=== PATIENT | male | born 1950 | race Caucasian/White ===

== ENCOUNTER → 2016-11-21 | Outpatient (CLI) | payer MEDICARE, OTHER ==
[~2016-11-21] MED LIST: AMOXICILLIN 50500 MG PO; ASPI325T6 PO; ASPIRIN 32325 MG/TAB PO; ASPIRIN 81M81 MG/TA2 PO; ASPIRIN E.C. 8181 MG PO; ATENOLOL50 MG PO; BRILINTA90 MG PO; CELEBREX 200MG200 MG PO; COUMADIN4 MG PO; DILTIAZEM PO; FLOMAX 0.40.4 MG/CAP PO; K-TAB20 PO; LASIX 40MG TABL40 MG PO; LIPITOR 80MG80 MG PO; LISINOPRIL10 MG PO; LORTAB 5/500 501 TAB PO; MAG-OX 400400 MG/TAB PO; NASONEX SPRAY17 GM NS; NEURONTIN300 MG/CAP PO; NORCO 325 MG-51 TAB PO; PERCOCET 325 MG1 TA2 PO; PERCOCET 325 MG1 TAB PO; PREDNISONE20 MG PO; PRILOSEC 20MG20 MG PO; PROAIR HFA0.09 MG/AC IH; PROLIA60 MG/ML SQ; SENOKOT S 50 MG1 TAB PO; TENORMIN100 MG PO; TIAZAC300 MG PO; TOPROL XL 25MG25 MG PO; TOPROL XL 50MG50 MG PO; ULTRAM 50MG TAB50 MG PO; VENTOLIN0.09 MG IH; ZANAFLEX2 MG PO; ZITHROMAX Z PA250 MG PO
== END ==
LOC: MHCPAIN 11:00
DX: G89.29 Other chronic pain (principal); M54.16 Radiculopathy, lumbar region; M48.06 Spinal stenosis, lumbar region; M47.817 Spondylosis without myelopathy or radiculopathy, lumbosacral region
CPT/HCPCS: G0463

== ENCOUNTER → 2016-11-29 | Outpatient (CLI) | payer MEDICARE, OTHER | LOC: MHCPAIN 09:02 | DX: M48.06 Spinal stenosis, lumbar region (principal); M47.817 Spondylosis without myelopathy or radiculopathy, lumbosacral region | CPT/HCPCS: G0463; J1100; Q9967 ==

== ENCOUNTER → 2016-12-28 | Outpatient (CLI) | payer MEDICARE, OTHER | LOC: MHCPAIN 11:02 | DX: G89.29 Other chronic pain (principal); M54.16 Radiculopathy, lumbar region; M47.817 Spondylosis without myelopathy or radiculopathy, lumbosacral region | CPT/HCPCS: G0463 ==

== ENCOUNTER → 2017-01-23 | Outpatient (CLI) | payer MEDICARE, OTHER | LOC: MHCPAIN 11:31 | DX: G89.29 Other chronic pain (principal); M47.817 Spondylosis without myelopathy or radiculopathy, lumbosacral region; M48.06 Spinal stenosis, lumbar region; F17.210 Nicotine dependence, cigarettes, uncomplicated | CPT/HCPCS: G0463 ==

== ENCOUNTER → 2017-02-27 | Outpatient (CLI) | payer MEDICARE, OTHER | LOC: MHCPAIN 11:24 | DX: G89.29 Other chronic pain (principal); M47.27 Other spondylosis with radiculopathy, lumbosacral region; M48.06 Spinal stenosis, lumbar region | CPT/HCPCS: G0463 ==

== ENCOUNTER 2017-03-04 13:12 | Day surgery (SDC) | payer MEDICARE, OTHER ==
[~2017-03-04] VITALS: Ht 172.7 cm; Wt 86.4 kg
[~2017-03-04 13:12] MED LIST changes: -ASPI325T6 PO; -ASPIRIN E.C. 8181 MG PO; -BRILINTA90 MG PO; -K-TAB20 PO; -LASIX 40MG TABL40 MG PO; -LIPITOR 80MG80 MG PO; -MAG-OX 400400 MG/TAB PO; -NEURONTIN300 MG/CAP PO; -PERCOCET 325 MG1 TAB PO; -PROAIR HFA0.09 MG/AC IH; -PROLIA60 MG/ML SQ; -ZANAFLEX2 MG PO
[2017-03-04] MEDS ORDERED: TENORMIN100 MG PO (13:29)
[2017-03-04] MEDS ORDERED: ASPI325T6 PO (13:30)
[2017-03-04 14:08] VITALS: BP 155/84; PULSE 72; TEMP 98
[2017-03-04 15:19] VITALS: BP 146/83; PULSE 79
[2017-03-04 15:34] VITALS: BP 148/95; PULSE 82
[2017-03-04 15:49] VITALS: BP 155/100; PULSE 84
[2017-03-04 16:04] VITALS: BP 151/82; PULSE 72
== END 2017-03-04 16:15 | disposition home or self-care (01) ==
LOC: SDCO 13:12
DX: K22.70 Barrett's esophagus without dysplasia (principal); K22.2 Esophageal obstruction; K44.9 Diaphragmatic hernia without obstruction or gangrene; R13.12 Dysphagia, oropharyngeal phase; K21.9 Gastro-esophageal reflux disease without esophagitis; I48.91 Unspecified atrial fibrillation; I10 Essential (primary) hypertension; Z79.899 Other long term (current) drug therapy; F17.200 Nicotine dependence, unspecified, uncomplicated
CPT/HCPCS: C1726; J2250; J3010; J7030

== ENCOUNTER → 2017-03-07 | Outpatient (CLI) | payer MEDICARE, OTHER ==
[~2017-03-07] MED LIST changes: +ASPI325T6 PO; +ASPIRIN E.C. 8181 MG PO; +BRILINTA90 MG PO; +K-TAB20 PO; +LASIX 40MG TABL40 MG PO; +LIPITOR 80MG80 MG PO; +MAG-OX 400400 MG/TAB PO; +NEURONTIN300 MG/CAP PO; +PERCOCET 325 MG1 TAB PO; +PROAIR HFA0.09 MG/AC IH; +PROLIA60 MG/ML SQ; +ZANAFLEX2 MG PO
== END ==
LOC: MHCPAIN 13:40
DX: M47.816 Spondylosis without myelopathy or radiculopathy, lumbar region (principal)
CPT/HCPCS: J1040; Q9967

== ENCOUNTER 2017-03-08 21:05 | Emergency (ER) | payer MEDICARE, OTHER ==
[~2017-03-08] VITALS: Ht 172.7 cm; Wt 86.4 kg
[2017-03-08 21:05] VITALS: TEMP 97
[~2017-03-08 21:05] MED LIST changes: -ASPIRIN E.C. 8181 MG PO; -BRILINTA90 MG PO; -K-TAB20 PO; -LASIX 40MG TABL40 MG PO; -LIPITOR 80MG80 MG PO; -MAG-OX 400400 MG/TAB PO; -NEURONTIN300 MG/CAP PO; -PERCOCET 325 MG1 TAB PO; -PROAIR HFA0.09 MG/AC IH; -PROLIA60 MG/ML SQ; -ZANAFLEX2 MG PO
[2017-03-08 21:29] LABS: BASO % 0.3 % (0.0-2.0); EOS # 0.1 (0.0-0.7); EOS % 0.5 % (0-4.0); GRAN # 8.3 (1.4-6.5); GRAN % 74.6 % (42.2-75.2); LYMPH # 1.9 (1.2-3.4); LYMPH % 16.9 % (20.0-51.0); MEAN CELL VOLUME 73 fl (80.0-100.0); MEAN CORPUSCULAR HGB CONC 30 g/dl (33.0-37.0); MEAN PLATELET VOLUME 9.9 fl (7.4-10.4); MONO # 0.8 (0.1-0.6); MONO % 7.3 % (1.7-9.3); PLATELET COUNT 453 K/mm3 (130-400); RED BLOOD COUNT 3.71 M/mm3 (4.20-5.60); WHITE BLOOD COUNT 11.1 K/mm3 (4.8-10.8)
[2017-03-08 21:30] LABS: HEMATOCRIT 27.2 % (42.0-52.0); HEMOGLOBIN 8.2 g/dl (13.5-18.0); MEAN CORPUSCULAR HEMOGLOBIN 22 pg (27.0-31.0)
[2017-03-08 21:43] LABS: ANION GAP 19 mmol/L (7-16); BLOOD UREA NITROGEN 10 mg/dL (9-20); CALCIUM 9.2 mg/dL (8.4-10.2); CARBON DIOXIDE 17 mmol/L (22-30); CHLORIDE 91 mmol/L (98-107); CREATININE, serum 0.87 mg/dL (0.66-1.25); GLUCOSE 85 mg/dL (74-106); POTASSIUM 4.5 mmol/L (3.4-5.0); SODIUM 127 mmol/L (137-145)
[2017-03-08 21:44] LABS: C-REACTIVE PROTEIN < 0.5 mg/dL (0.0-0.9)
[2017-03-08] MEDS ORDERED: PERCOCET 325 MG1 TAB PO (23:57)
[2017-03-09 00:37] VITALS: BP 109/63; PULSE 53
== END 2017-03-09 00:37 | disposition home or self-care (01) ==
LOC: COL.ER 21:05
PROVIDERS: Emergency Medicine
DX: M54.16 Radiculopathy, lumbar region (principal); M48.06 Spinal stenosis, lumbar region; I10 Essential (primary) hypertension; I48.91 Unspecified atrial fibrillation
CPT/HCPCS: J1170; J1885; J2360; J2765; J2930; J3010; J7030

== ENCOUNTER → 2017-03-13 | Outpatient (CLI) | payer MEDICARE, OTHER ==
[~2017-03-13] MED LIST changes: +ASPIRIN E.C. 8181 MG PO; +BRILINTA90 MG PO; +K-TAB20 PO; +LASIX 40MG TABL40 MG PO; +LIPITOR 80MG80 MG PO; +MAG-OX 400400 MG/TAB PO; +NEURONTIN300 MG/CAP PO; +PERCOCET 325 MG1 TAB PO; +PROAIR HFA0.09 MG/AC IH; +PROLIA60 MG/ML SQ; +ZANAFLEX2 MG PO
== END ==
LOC: MHCPAIN 12:24
DX: G89.29 Other chronic pain (principal); M47.21 Other spondylosis with radiculopathy, occipito-atlanto-axial region; M48.06 Spinal stenosis, lumbar region
CPT/HCPCS: G0463

== ENCOUNTER → 2017-03-22 | Outpatient (CLI) | payer MEDICARE, OTHER | LOC: MHCPAIN 12:34 | DX: G89.29 Other chronic pain (principal); M47.817 Spondylosis without myelopathy or radiculopathy, lumbosacral region; M48.06 Spinal stenosis, lumbar region; M54.16 Radiculopathy, lumbar region | CPT/HCPCS: G0463 ==

== ENCOUNTER 2017-04-06 21:02 | Emergency (ER) | payer MEDICARE, OTHER ==
[~2017-04-06] VITALS: Ht 172.7 cm; Wt 86.4 kg
[~2017-04-06 21:02] MED LIST changes: -ASPIRIN E.C. 8181 MG PO; -BRILINTA90 MG PO; -K-TAB20 PO; -LASIX 40MG TABL40 MG PO; -LIPITOR 80MG80 MG PO; -MAG-OX 400400 MG/TAB PO; -NEURONTIN300 MG/CAP PO; -PROAIR HFA0.09 MG/AC IH; -PROLIA60 MG/ML SQ; -ZANAFLEX2 MG PO
[2017-04-06 21:07] VITALS: TEMP 98.3
[2017-04-06 22:28] LABS: BASO % 0.5 % (0.0-2.0); EOS # 0.3 (0.0-0.7); EOS % 4.2 % (0-4.0); GRAN # 4.6 (1.4-6.5); GRAN % 60.8 % (42.2-75.2); LYMPH % 25.9 % (20.0-51.0); MEAN CELL VOLUME 76 fl (80.0-100.0); MEAN CORPUSCULAR HGB CONC 30 g/dl (33.0-37.0); MEAN PLATELET VOLUME 9.5 fl (7.4-10.4); MONO # 0.6 (0.1-0.6); MONO % 8.2 % (1.7-9.3); PLATELET COUNT 397 K/mm3 (130-400); RED BLOOD COUNT 3.56 M/mm3 (4.20-5.60); REDCELL DISTRIBUTION WIDTH-CV 22.8 % (11.5-14.5); WHITE BLOOD COUNT 7.5 K/mm3 (4.8-10.8)
[2017-04-06 22:30] LABS: HEMATOCRIT 27.2 % (42.0-52.0); HEMOGLOBIN 8.2 g/dl (13.5-18.0); MEAN CORPUSCULAR HEMOGLOBIN 23 pg (27.0-31.0)
[2017-04-06 22:38] LABS: ADJUSTED CALCIUM 8.4 mg/dL (8.4-10.2); ALBUMIN 3.7 gm/dL (3.5-5.0); BILIRUBIN,TOTAL 0.5 mg/dL (0.0-1.0); C-REACTIVE PROTEIN 1.3 mg/dL (0.0-0.9); CALCIUM 8.2 mg/dL (8.4-10.2); CREATININE, serum 1.06 mg/dL (0.66-1.25); POTASSIUM 4.7 mmol/L (3.4-5.0); TOTAL PROTEIN 6.6 gm/dL (6.4-8.2)
[2017-04-06] MEDS ORDERED: PERCOCET 325 MG1 TAB PO (23:12)
[2017-04-06 23:25] VITALS: BP 101/63; PULSE 95
== END 2017-04-06 23:26 | disposition home or self-care (01) ==
LOC: COL.ER 21:02
PROVIDERS: Emergency Medicine
DX: M48.06 Spinal stenosis, lumbar region (principal); M54.16 Radiculopathy, lumbar region; I10 Essential (primary) hypertension; J45.909 Unspecified asthma, uncomplicated; M19.90 Unspecified osteoarthritis, unspecified site; F17.290 Nicotine dependence, other tobacco product, uncomplicated; Z79.82 Long term (current) use of aspirin; Z96.653 Presence of artificial knee joint, bilateral
CPT/HCPCS: J2765; J2930; J3010; J7030

== ENCOUNTER → 2017-04-17 | Outpatient (CLI) | payer MEDICARE, OTHER ==
[~2017-04-17] MED LIST changes: +ASPIRIN E.C. 8181 MG PO; +BRILINTA90 MG PO; +K-TAB20 PO; +LASIX 40MG TABL40 MG PO; +LIPITOR 80MG80 MG PO; +MAG-OX 400400 MG/TAB PO; +NEURONTIN300 MG/CAP PO; +PROAIR HFA0.09 MG/AC IH; +PROLIA60 MG/ML SQ; +ZANAFLEX2 MG PO
== END ==
LOC: MHCPAIN 11:25
DX: G89.29 Other chronic pain (principal); M47.817 Spondylosis without myelopathy or radiculopathy, lumbosacral region; M54.16 Radiculopathy, lumbar region; M48.06 Spinal stenosis, lumbar region
CPT/HCPCS: G0463

== ENCOUNTER 2017-04-24 13:00 | Day surgery (SDC) | payer MEDICARE, OTHER ==
[~2017-04-24] VITALS: Ht 172.7 cm; Wt 86.4 kg
[~2017-04-24 13:00] MED LIST changes: -ASPIRIN E.C. 8181 MG PO; -BRILINTA90 MG PO; -K-TAB20 PO; -LASIX 40MG TABL40 MG PO; -LIPITOR 80MG80 MG PO; -MAG-OX 400400 MG/TAB PO; -NEURONTIN300 MG/CAP PO; -PROAIR HFA0.09 MG/AC IH; -PROLIA60 MG/ML SQ; -ZANAFLEX2 MG PO
[2017-04-24 13:30] VITALS: BP 153/93; PULSE 85; TEMP 98.1
[2017-04-24] MEDS ORDERED: ASPIRIN 81M81 MG/TA2 PO (14:00)
[2017-04-24] MEDS ORDERED: NEURONTIN300 MG/CAP PO (14:02)
[2017-04-24] MEDS ORDERED: ZANAFLEX2 MG PO (14:03)
[2017-04-24 14:40] VITALS: BP 145/95; PULSE 92; TEMP 98.9
[2017-04-24 14:55] VITALS: BP 159/107; PULSE 77
[2017-04-24 15:10] VITALS: BP 174/102; PULSE 79
[2017-04-24 15:25] VITALS: BP 145/97; PULSE 79
[2017-04-24 16:07] VITALS: BP 124/82; PULSE 79
== END 2017-04-24 16:00 | disposition home or self-care (01) ==
LOC: SDCO 13:00
DX: D50.9 Iron deficiency anemia, unspecified (principal); K92.1 Melena; K64.8 Other hemorrhoids; K57.30 Diverticulosis of large intestine without perforation or abscess without bleeding; K21.9 Gastro-esophageal reflux disease without esophagitis; I10 Essential (primary) hypertension; I48.91 Unspecified atrial fibrillation; J44.9 Chronic obstructive pulmonary disease, unspecified; J45.909 Unspecified asthma, uncomplicated; G47.33 Obstructive sleep apnea (adult) (pediatric); M19.90 Unspecified osteoarthritis, unspecified site; F17.290 Nicotine dependence, other tobacco product, uncomplicated; Z96.611 Presence of right artificial shoulder joint; Z96.651 Presence of right artificial knee joint
CPT/HCPCS: J2704; J7030

== ENCOUNTER 2017-04-28 23:38 | Emergency (ER) | payer MEDICARE, OTHER ==
[~2017-04-28] VITALS: Ht 175.3 cm; Wt 86.4 kg
[2017-04-28 23:38] VITALS: TEMP 97
[~2017-04-28 23:38] MED LIST changes: +NEURONTIN300 MG/CAP PO; +ZANAFLEX2 MG PO
[2017-04-29] MEDS ORDERED: PREDNISONE20 MG PO (01:44)
[2017-04-29 02:07] VITALS: BP 148/58; PULSE 69
== END 2017-04-29 02:55 | disposition home or self-care (01) ==
LOC: COL.ER 23:38
DX: M54.16 Radiculopathy, lumbar region (principal); M48.00 Spinal stenosis, site unspecified; I48.91 Unspecified atrial fibrillation; D64.9 Anemia, unspecified; Z79.82 Long term (current) use of aspirin
CPT/HCPCS: J1170; J2060; J2405; J2930; J7030

== ENCOUNTER 2017-05-10 05:44 | Observation (INO) | payer MEDICARE, OTHER ==
[2017-05-10] VITALS (162 sets, daily range): BP systolic 115–164; BP diastolic 62–88; PULSE 50–98; TEMP 98–98.6; O2SAT 77–100
[~2017-05-10] VITALS: Ht 172.7 cm; Wt 86.4 kg
[2017-05-10] MEDS ORDERED: PROLIA60 MG/ML SQ (07:01)
[2017-05-10 07:48] LABS: MEAN CELL VOLUME 78 fl (80.0-100.0); MEAN CORPUSCULAR HGB CONC 31 g/dl (33.0-37.0); MEAN PLATELET VOLUME 9.5 fl (7.4-10.4); PLATELET COUNT 370 K/mm3 (130-400); RED BLOOD COUNT 4.06 M/mm3 (4.20-5.60); REDCELL DISTRIBUTION WIDTH-CV 23.5 % (11.5-14.5); WHITE BLOOD COUNT 6.9 K/mm3 (4.8-10.8)
[2017-05-10 07:55] LABS: HEMATOCRIT 31.5 % (42.0-52.0); HEMOGLOBIN 9.7 g/dl (13.5-18.0); MEAN CORPUSCULAR HEMOGLOBIN 24 pg (27.0-31.0)
[2017-05-10 07:57] LABS: CALCIUM 8.5 mg/dL (8.4-10.2); CREATININE, serum 0.7 mg/dL (0.66-1.25); POTASSIUM 4.7 mmol/L (3.4-5.0)
[2017-05-10 07:59] LABS: PROTHROMBIN TIME 10.6 SECONDS (9.7-12.8)
[2017-05-11 02:31] VITALS: BP 164/89; PULSE 52; TEMP 97.7
[2017-05-11 05:50] VITALS: BP 154/74; PULSE 66; TEMP 97.4
[2017-05-11 09:38] VITALS: BP 129/60; PULSE 77; TEMP 98.5
[2017-05-11] MEDS ORDERED: BRILINTA90 MG PO (11:45)
[2017-05-11] MEDS ORDERED: ASPIRIN E.C. 8181 MG PO (11:46)
[2017-05-11] MEDS ORDERED: LIPITOR 80MG80 MG PO (11:47)
== END 2017-05-11 12:00 | disposition home or self-care (01) ==
LOC: MEDICAL 05:44 → ICU 13:39 → SURG 18:53 → MEDICAL 20:17 → SURG 05-11 12:00
PROVIDERS: Internal Medicine Interventional Cardiology
DX: I25.10 Atherosclerotic heart disease of native coronary artery without angina pectoris (principal); I48.0 Paroxysmal atrial fibrillation; F17.290 Nicotine dependence, other tobacco product, uncomplicated; D50.9 Iron deficiency anemia, unspecified; K22.70 Barrett's esophagus without dysplasia; E87.1 Hypo-osmolality and hyponatremia; Z96.653 Presence of artificial knee joint, bilateral
CPT/HCPCS: C1725; C1760; C1769; C1876; C1887; C1894; C9600; J0583; J2250; J3010; Q9967

== ENCOUNTER → 2017-05-17 | Outpatient (CLI) | payer MEDICARE, OTHER ==
[~2017-05-17] MED LIST changes: +ASPIRIN E.C. 8181 MG PO; +BRILINTA90 MG PO; +K-TAB20 PO; +LASIX 40MG TABL40 MG PO; +LIPITOR 80MG80 MG PO; +MAG-OX 400400 MG/TAB PO; +PROAIR HFA0.09 MG/AC IH; +PROLIA60 MG/ML SQ
== END ==
LOC: MHCPAIN 12:36
DX: G89.29 Other chronic pain (principal); M47.817 Spondylosis without myelopathy or radiculopathy, lumbosacral region; M54.16 Radiculopathy, lumbar region; F17.210 Nicotine dependence, cigarettes, uncomplicated
CPT/HCPCS: G0463

== ENCOUNTER → 2017-05-22 | Outpatient (CLI) | payer MEDICARE, OTHER ==
[2017-05-22 22:50] LABS: MEAN CELL VOLUME 79 fl (80.0-100.0); MEAN CORPUSCULAR HGB CONC 32 g/dl (33.0-37.0); MEAN PLATELET VOLUME 10.2 fl (7.4-10.4); PLATELET COUNT 411 K/mm3 (130-400); RED BLOOD COUNT 4.24 M/mm3 (4.20-5.60); REDCELL DISTRIBUTION WIDTH-CV 24.6 % (11.5-14.5); WHITE BLOOD COUNT 6.3 K/mm3 (4.8-10.8)
[2017-05-22 22:52] LABS: HEMATOCRIT 33.5 % (42.0-52.0); HEMOGLOBIN 10.7 g/dl (13.5-18.0); MEAN CORPUSCULAR HEMOGLOBIN 25 pg (27.0-31.0)
[2017-05-22 23:01] LABS: CALCIUM 9.1 mg/dL (8.4-10.2); CREATININE, serum 0.87 mg/dL (0.66-1.25); POTASSIUM 4.1 mmol/L (3.4-5.0)
== END ==
LOC: COL.LAB 20:47
PROVIDERS: Internal Medicine Interventional Cardiology
DX: I74.5 Embolism and thrombosis of iliac artery (principal)

== ENCOUNTER 2017-06-06 05:08 | Inpatient (IN) | payer MEDICARE, OTHER ==
[~2017-06-06] VITALS: Ht 172.7 cm; Wt 85.4 kg
[~2017-06-06 05:08] MED LIST changes: -K-TAB20 PO; -LASIX 40MG TABL40 MG PO; -MAG-OX 400400 MG/TAB PO; -PROAIR HFA0.09 MG/AC IH
[2017-06-06 06:19] LABS: ADD PATHOLOGY DIFF REVIEW NO
[2017-06-06 06:22] LABS: MEAN CELL VOLUME 81 fl (80.0-100.0); MEAN CORPUSCULAR HGB CONC 33 g/dl (33.0-37.0); MEAN PLATELET VOLUME 9.2 fl (7.4-10.4); PLATELET COUNT 353 K/mm3 (130-400); RED BLOOD COUNT 3.85 M/mm3 (4.20-5.60); REDCELL DISTRIBUTION WIDTH-CV 24.6 % (11.5-14.5); WHITE BLOOD COUNT 13.7 K/mm3 (4.8-10.8)
[2017-06-06 06:23] LABS: HEMATOCRIT 31.1 % (42.0-52.0); HEMOGLOBIN 10.3 g/dl (13.5-18.0); MEAN CORPUSCULAR HEMOGLOBIN 27 pg (27.0-31.0)
[2017-06-06 06:38] LABS: ADJUSTED CALCIUM 8.3 mg/dL (8.4-10.2); ALBUMIN 3.4 gm/dL (3.5-5.0); BILIRUBIN,TOTAL 0.8 mg/dL (0.0-1.0); CALCIUM 7.8 mg/dL (8.4-10.2); CREATININE, serum 0.59 mg/dL (0.66-1.25); POTASSIUM 4.7 mmol/L (3.4-5.0); TOTAL PROTEIN 6.6 gm/dL (6.4-8.2)
[2017-06-06 07:15] LABS: C-REACTIVE PROTEIN 19.2 mg/dL (0.0-0.9)
[2017-06-06 07:50] LABS: BAND 7 % (0-10); HYPOCHROMIA 1+; NEUTROPHILS 86 % (42.0-75.2); PLATELET ESTIMATE NORMAL (NORMAL); TOTAL CELLS COUNTED 100
[2017-06-06 11:01] VITALS: PULSE 73; TEMP 98.1
[2017-06-06 16:00] VITALS: BP 123/77; PULSE 93; TEMP 97.9
[2017-06-06 20:49] VITALS: BP 127/74; PULSE 111; TEMP 97.9
[2017-06-07 00:20] VITALS: BP 135/90; PULSE 91; TEMP 98
[2017-06-07 04:04] VITALS: BP 141/89; PULSE 95; TEMP 98.6
[2017-06-07 06:35] LABS: ADD PATHOLOGY DIFF REVIEW NO; HEMATOCRIT 30.3 % (42.0-52.0); HEMOGLOBIN 9.9 g/dl (13.5-18.0); MEAN CELL VOLUME 82 fl (80.0-100.0); MEAN CORPUSCULAR HEMOGLOBIN 27 pg (27.0-31.0); MEAN CORPUSCULAR HGB CONC 33 g/dl (33.0-37.0); MEAN PLATELET VOLUME 9.4 fl (7.4-10.4); PLATELET COUNT 341 K/mm3 (130-400); RED BLOOD COUNT 3.68 M/mm3 (4.20-5.60); REDCELL DISTRIBUTION WIDTH-CV 24.9 % (11.5-14.5)
[2017-06-07 06:43] LABS: CALCIUM 7.5 mg/dL (8.4-10.2); CREATININE, serum 0.59 mg/dL (0.66-1.25); POTASSIUM 3.8 mmol/L (3.4-5.0)
[2017-06-07 07:22] LABS: BAND 10 % (0-10); NEUTROPHILS 67 % (42.0-75.2); PLATELET ESTIMATE NORMAL (NORMAL); TOTAL CELLS COUNTED 100
[2017-06-07 07:23] LABS: HYPOCHROMIA 2+
[2017-06-07 07:29] LABS: ANISOCYTOSIS 3+
[2017-06-07 07:30] LABS: TARGET CELLS 2+
[2017-06-07 08:04] VITALS: BP 151/74; PULSE 108; TEMP 98.5
[2017-06-07 11:32] VITALS: BP 103/76; PULSE 67; TEMP 98.4
[2017-06-07 16:07] VITALS: BP 118/72; PULSE 61; TEMP 98.4
[2017-06-07 21:14] VITALS: BP 149/58; PULSE 78; TEMP 98.7
[2017-06-08 05:18] VITALS: BP 135/82; PULSE 103; PULSE 79; TEMP 98.1
[2017-06-08 06:56] LABS: CALCIUM 7.7 mg/dL (8.4-10.2); CREATININE, serum 0.62 mg/dL (0.66-1.25); POTASSIUM 3.9 mmol/L (3.4-5.0)
[2017-06-08 07:34] VITALS: BP 122/70; PULSE 72; TEMP 97.5
[2017-06-08 08:15] VITALS: BP 131/70; PULSE 103; TEMP 98.7
[2017-06-08] MEDS ORDERED: MAG-OX 400400 MG/TAB PO (10:06)
[2017-06-08] MEDS ORDERED: PROAIR HFA0.09 MG/AC IH (10:10)
[2017-06-08] MEDS ORDERED: LASIX 40MG TABL40 MG PO (10:10)
[2017-06-08] MEDS ORDERED: K-TAB20 PO (10:10)
== END 2017-06-08 11:25 | disposition home or self-care (01) | DRG 292 ==
LOC: COL.ER 05:08 → MEDICAL 08:49
PROVIDERS: Family Medicine; Physician Assistant
DX: I11.0 Hypertensive heart disease with heart failure (principal); E87.1 Hypo-osmolality and hyponatremia; J98.11 Atelectasis; I50.33 Acute on chronic diastolic (congestive) heart failure; I48.91 Unspecified atrial fibrillation; W18.30XA Fall on same level, unspecified, initial encounter; I25.10 Atherosclerotic heart disease of native coronary artery without angina pectoris; Z95.5 Presence of coronary angioplasty implant and graft; F17.290 Nicotine dependence, other tobacco product, uncomplicated; I73.9 Peripheral vascular disease, unspecified; Z95.820 Peripheral vascular angioplasty status with implants and grafts
CPT/HCPCS: 99223-AI; 99233-AI; 99239; A9284; G0378; G8978-GP; G8979-GP; J0456; J0692; J1170; J1650; J1940; J2270; J7050; Q9967

== ENCOUNTER → 2017-08-05 | Outpatient (CLI) | payer MEDICARE, OTHER ==
[~2017-08-05] MED LIST changes: +K-TAB20 PO; +LASIX 40MG TABL40 MG PO; +MAG-OX 400400 MG/TAB PO; +PROAIR HFA0.09 MG/AC IH
== END ==
LOC: MHCPAIN 09:54
DX: G89.29 Other chronic pain (principal); M47.27 Other spondylosis with radiculopathy, lumbosacral region; F17.200 Nicotine dependence, unspecified, uncomplicated; Z79.82 Long term (current) use of aspirin
CPT/HCPCS: G0463

== ENCOUNTER → 2017-10-24 | Outpatient (CLI) | payer MEDICARE, OTHER | LOC: COL.PUL 14:19 | DX: R06.02 Shortness of breath (principal); F17.290 Nicotine dependence, other tobacco product, uncomplicated ==

== ENCOUNTER → 2017-10-30 | Outpatient (CLI) | payer MEDICARE, OTHER | LOC: MHCPAIN 12:59 | DX: G89.29 Other chronic pain (principal); M47.27 Other spondylosis with radiculopathy, lumbosacral region; M53.3 Sacrococcygeal disorders, not elsewhere classified; M96.1 Postlaminectomy syndrome, not elsewhere classified; F17.200 Nicotine dependence, unspecified, uncomplicated | CPT/HCPCS: G0463 ==

== ENCOUNTER → 2017-11-08 | Outpatient (CLI) | payer MEDICARE, OTHER | LOC: COL.RAD 14:22 | DX: M48.07 Spinal stenosis, lumbosacral region (principal); M51.27 Other intervertebral disc displacement, lumbosacral region; M46.87 Other specified inflammatory spondylopathies, lumbosacral region; M47.816 Spondylosis without myelopathy or radiculopathy, lumbar region ==

== ENCOUNTER → 2018-01-08 | Outpatient (CLI) | payer MEDICARE, OTHER | LOC: MHCPAIN 12:30 | DX: G89.29 Other chronic pain (principal); M47.817 Spondylosis without myelopathy or radiculopathy, lumbosacral region; M54.16 Radiculopathy, lumbar region; M53.3 Sacrococcygeal disorders, not elsewhere classified; M48.061 Spinal stenosis, lumbar region without neurogenic claudication | CPT/HCPCS: G0463 ==

== ENCOUNTER → 2018-01-16 | Outpatient (CLI) | payer MEDICARE, OTHER | LOC: COL.RAD 14:46 | DX: M41.84 Other forms of scoliosis, thoracic region (principal); M41.86 Other forms of scoliosis, lumbar region; M47.816 Spondylosis without myelopathy or radiculopathy, lumbar region ==

== ENCOUNTER → 2018-04-02 | Outpatient (CLI) | payer MEDICARE, OTHER | LOC: MHCPAIN 12:52 | DX: G89.29 Other chronic pain (principal); M47.817 Spondylosis without myelopathy or radiculopathy, lumbosacral region; M54.16 Radiculopathy, lumbar region; M53.3 Sacrococcygeal disorders, not elsewhere classified; M96.1 Postlaminectomy syndrome, not elsewhere classified | CPT/HCPCS: G0463 ==

== ENCOUNTER → 2018-05-07 | Outpatient (CLI) | payer MEDICARE, OTHER | LOC: MHCPAIN 11:35 | DX: G89.29 Other chronic pain (principal); M47.817 Spondylosis without myelopathy or radiculopathy, lumbosacral region; M54.16 Radiculopathy, lumbar region; M53.3 Sacrococcygeal disorders, not elsewhere classified; M96.1 Postlaminectomy syndrome, not elsewhere classified | CPT/HCPCS: G0463 ==

== ENCOUNTER → 2018-05-28 | Outpatient (CLI) | payer MEDICARE, OTHER | LOC: MHCPAIN 12:46 | DX: G89.29 Other chronic pain (principal); M47.817 Spondylosis without myelopathy or radiculopathy, lumbosacral region; M54.16 Radiculopathy, lumbar region; M53.3 Sacrococcygeal disorders, not elsewhere classified; M96.1 Postlaminectomy syndrome, not elsewhere classified | CPT/HCPCS: G0463 ==

== ENCOUNTER → 2018-06-18 | Outpatient (CLI) | payer MEDICARE, OTHER | LOC: MHCPAIN 13:43 | DX: G89.29 Other chronic pain (principal); M47.817 Spondylosis without myelopathy or radiculopathy, lumbosacral region; M54.16 Radiculopathy, lumbar region; M53.3 Sacrococcygeal disorders, not elsewhere classified; M96.1 Postlaminectomy syndrome, not elsewhere classified | CPT/HCPCS: G0463 ==

== ENCOUNTER → 2018-08-18 | Outpatient (CLI) | payer MEDICARE, OTHER | LOC: MHCPAIN 11:19 | DX: G89.29 Other chronic pain (principal); M47.817 Spondylosis without myelopathy or radiculopathy, lumbosacral region; M54.16 Radiculopathy, lumbar region; M53.3 Sacrococcygeal disorders, not elsewhere classified; M96.1 Postlaminectomy syndrome, not elsewhere classified | CPT/HCPCS: G0463 ==

== ENCOUNTER → 2018-10-06 | Outpatient (CLI) | payer MEDICARE, OTHER | LOC: MHCPAIN 11:04 | DX: G89.29 Other chronic pain (principal); M47.817 Spondylosis without myelopathy or radiculopathy, lumbosacral region; M54.16 Radiculopathy, lumbar region; M53.3 Sacrococcygeal disorders, not elsewhere classified; M96.1 Postlaminectomy syndrome, not elsewhere classified | CPT/HCPCS: G0463 ==

== ENCOUNTER 2018-11-18 13:45 | Outpatient (RCR) | payer MEDICARE, OTHER | END 2018-11-24 | disposition home or self-care (01) | LOC: WSPT | DX: M54.16 Radiculopathy, lumbar region (principal); M47.817 Spondylosis without myelopathy or radiculopathy, lumbosacral region; M96.1 Postlaminectomy syndrome, not elsewhere classified; M53.3 Sacrococcygeal disorders, not elsewhere classified; G89.29 Other chronic pain; Z79.01 Long term (current) use of anticoagulants; Z79.82 Long term (current) use of aspirin; Z79.899 Other long term (current) drug therapy | CPT/HCPCS: G8978-GP; G8979-GP ==

== ENCOUNTER 2018-11-25 14:20 | Outpatient (RCR) | payer MEDICARE, OTHER | END 2019-02-03 10:38 | disposition home or self-care (01) | LOC: WSPT 14:20 | DX: M54.5 Low back pain (principal); G89.29 Other chronic pain ==

== ENCOUNTER → 2018-12-02 | Outpatient (CLI) | payer MEDICARE, OTHER | LOC: MHCPAIN 12:36 | DX: G89.29 Other chronic pain (principal); M47.817 Spondylosis without myelopathy or radiculopathy, lumbosacral region; M54.16 Radiculopathy, lumbar region; M53.3 Sacrococcygeal disorders, not elsewhere classified; M96.1 Postlaminectomy syndrome, not elsewhere classified | CPT/HCPCS: G0463 ==

== ENCOUNTER → 2019-01-20 | Outpatient (CLI) | payer MEDICARE, OTHER | LOC: MHCPAIN 12:28 | DX: G89.29 Other chronic pain (principal); M47.817 Spondylosis without myelopathy or radiculopathy, lumbosacral region; M54.16 Radiculopathy, lumbar region; M53.3 Sacrococcygeal disorders, not elsewhere classified; M96.1 Postlaminectomy syndrome, not elsewhere classified | CPT/HCPCS: G0463 ==

== ENCOUNTER → 2019-03-11 | Day surgery (SDC) | payer MEDICARE, OTHER ==
[~2019-03-11] VITALS: Ht 175.3 cm; Wt 86.4 kg
[~2019-03-11] MED LIST changes: +ELIQUIS 5MG PO; +MOBIC 7.5MG7.5 MG PO; +PERCOCET 325 MG1 TA3 PO
[2019-03-11 13:33] VITALS: BP 133/99; PULSE 86; TEMP 97.9
[2019-03-11 14:45] VITALS: BP 132/106; PULSE 90; TEMP 97.8
--- NOTE | 2019-03-11 14:45 | NUR ---
The patient arrived back to [facility] from the [facility] at this time. The patient appears alert and oriented at this time. The patient ambulated from the cart to the recliner in his room with the stand by assistance of two nurses and appeared to tolerate the activity well. Post procedure vital signs were started at this time. The patient requests to try some apple juice at this time. The patient's is at his bedside at this time. Call light is within reach. Will continue to monitor the patient.
[2019-03-11 15:00] VITALS: BP 122/90; PULSE 79
--- NOTE | 2019-03-11 15:00 | NUR ---
The patient appears to be tolerating the apple juice well. The patient's vital signs appear stable. The patient's remains at his bedside. Will continue to monitor the patient.
[2019-03-11 15:15] VITALS: BP 133/88; PULSE 79
--- NOTE | 2019-03-11 15:15 | NUR ---
Discharge instructions were reviewed with the patient and his at this time. They both verbalized understanding and have no questions for the nurse at this time. The patient's IV to his right forearm was removed and a pressure dressing was applied to the site. The nurse instructed the patient to get dressed and notify the staff when he is ready to be escorted ou.t
--- NOTE | 2019-03-11 15:30 | NUR ---
The patient was escorted out via wheelchair to a private vehicle by GISSELLE Bazan. The patient's belongings and discharge papwerwork were sent with him. The patient's was present to drive hime home.
== END ==
LOC: SDCO 13:00
DX: K22.70 Barrett's esophagus without dysplasia (principal); K22.2 Esophageal obstruction; K21.9 Gastro-esophageal reflux disease without esophagitis; I48.91 Unspecified atrial fibrillation; I10 Essential (primary) hypertension; K92.1 Melena; D64.9 Anemia, unspecified; M19.90 Unspecified osteoarthritis, unspecified site; F17.290 Nicotine dependence, other tobacco product, uncomplicated
CPT/HCPCS: C1726; J2250; J3010; J7030

== ENCOUNTER → 2019-03-18 | Outpatient (CLI) | payer MEDICARE, OTHER | LOC: MHCPAIN 15:12 | DX: G89.29 Other chronic pain (principal); M47.817 Spondylosis without myelopathy or radiculopathy, lumbosacral region; M54.16 Radiculopathy, lumbar region; M53.3 Sacrococcygeal disorders, not elsewhere classified; M96.1 Postlaminectomy syndrome, not elsewhere classified | CPT/HCPCS: G0463 ==

== ENCOUNTER → 2019-05-06 | Outpatient (CLI) | payer MEDICARE, OTHER ==
[~2019-05-06] MED LIST changes: +VITAMIN D31000 I1 PO; +VITAMINC1000TA
== END ==
LOC: MHCPAIN 12:12
DX: G89.29 Other chronic pain (principal); M47.817 Spondylosis without myelopathy or radiculopathy, lumbosacral region; M54.16 Radiculopathy, lumbar region; M53.3 Sacrococcygeal disorders, not elsewhere classified; M96.1 Postlaminectomy syndrome, not elsewhere classified
CPT/HCPCS: G0463

== ENCOUNTER 2019-05-09 00:02 | Emergency (ER) | payer MEDICARE, OTHER ==
[~2019-05-09] VITALS: Ht 172.7 cm; Wt 86.4 kg
[~2019-05-09 00:02] MED LIST changes: -VITAMIN D31000 I1 PO; -VITAMINC1000TA
[2019-05-09 00:05] VITALS: TEMP 98.2
[2019-05-09 00:32] LABS: BASO # 0.1 (0.0-0.2); BASO % 0.9 % (0.0-2.0); EOS # 0.1 (0.0-0.7); EOS % 1.4 % (0-4.0); GRAN # 4.7 (1.4-6.5); GRAN % 57.6 % (42.2-75.2); HEMATOCRIT 41.4 % (42.0-52.0); HEMOGLOBIN 14.4 g/dl (13.5-18.0); LYMPH # 2.3 (1.2-3.4); MEAN CELL VOLUME 99 fl (80.0-100.0); MEAN CORPUSCULAR HEMOGLOBIN 34 pg (27.0-31.0); MEAN CORPUSCULAR HGB CONC 35 g/dl (33.0-37.0); MEAN PLATELET VOLUME 9.4 fl (7.4-10.4); MONO # 0.9 (0.1-0.6); MONO % 11.6 % (1.7-9.3); PLATELET COUNT 305 K/mm3 (130-400); REDCELL DISTRIBUTION WIDTH-CV 13.5 % (11.5-14.5)
[2019-05-09 00:40] LABS: CALCIUM 8.4 mg/dL (8.4-10.2); CREATININE, serum 0.91 (0.66-1.25); POTASSIUM 4.1 mmol/L (3.4-5.0)
[2019-05-09 00:41] LABS: PROTHROMBIN TIME 11.6 SECONDS (9.7-12.8)
[2019-05-09] MEDS ORDERED: VITAMINC1000TA (01:26)
[2019-05-09] MEDS ORDERED: VITAMIN D31000 I1 PO (01:27)
[2019-05-09 02:47] VITALS: BP 123/82; PULSE 66
== END 2019-05-09 02:47 | disposition home or self-care (01) ==
LOC: COL.ER 00:02
PROVIDERS: Physician Assistant
DX: S00.93XA Contusion of unspecified part of head, initial encounter (principal); M54.9 Dorsalgia, unspecified; R91.1 Solitary pulmonary nodule; I48.91 Unspecified atrial fibrillation; F10.129 Alcohol abuse with intoxication, unspecified; Z79.01 Long term (current) use of anticoagulants; Z79.82 Long term (current) use of aspirin; Z95.5 Presence of coronary angioplasty implant and graft; Y90.8 Blood alcohol level of 240 mg/100 ml or more; F17.290 Nicotine dependence, other tobacco product, uncomplicated; W19.XXXA Unspecified fall, initial encounter; W22.8XXA Striking against or struck by other objects, initial encounter; Y92.009 Unspecified place in unspecified non-institutional (private) residence as the place of occurrence of the external cause
CPT/HCPCS: J2270; J2405; J7030

== ENCOUNTER 2019-07-10 15:17 | Outpatient (CLI) | payer MEDICARE, OTHER ==
[~2019-07-10] VITALS: Ht 172.7 cm; Wt 86.4 kg
[~2019-07-10 15:17] MED LIST changes: +VITAMIN D31000 I1 PO; +VITAMINC1000TA
[2019-07-10 15:58] VITALS: BP 116/66; PULSE 78; TEMP 97.5
--- NOTE | 2019-07-10 16:43 | NUR ---
Sat for 30 minutes post Reclast. transferred to private car by hermes
== END 2019-07-10 16:44 | disposition home or self-care (01) ==
LOC: EUO 15:17
DX: M81.0 Age-related osteoporosis without current pathological fracture (principal)
CPT/HCPCS: J3489

== ENCOUNTER → 2019-07-29 | Outpatient (CLI) | payer MEDICARE, OTHER | LOC: MHCPAIN 13:59 | DX: G89.29 Other chronic pain (principal); M47.817 Spondylosis without myelopathy or radiculopathy, lumbosacral region; M54.16 Radiculopathy, lumbar region; M53.3 Sacrococcygeal disorders, not elsewhere classified; M96.1 Postlaminectomy syndrome, not elsewhere classified | CPT/HCPCS: G0463 ==

== ENCOUNTER → 2019-09-22 | Outpatient (CLI) | payer MEDICARE, OTHER | LOC: MHCPAIN 14:06 | DX: G89.29 Other chronic pain (principal); M47.817 Spondylosis without myelopathy or radiculopathy, lumbosacral region; M54.16 Radiculopathy, lumbar region; M53.3 Sacrococcygeal disorders, not elsewhere classified; M96.1 Postlaminectomy syndrome, not elsewhere classified | CPT/HCPCS: G0463 ==

== ENCOUNTER 2019-10-08 06:53 | Inpatient (IN) | payer MEDICARE, OTHER ==
[~2019-10-08] VITALS: Ht 172.7 cm; Wt 85.2 kg
[2019-10-08 07:36] LABS: BASO % 0.3 % (0.0-2.0); EOS % 0.2 % (0-4.0); GRAN % 92.8 % (42.2-75.2); HEMATOCRIT 42.4 % (42.0-52.0); HEMOGLOBIN 14.5 g/dl (13.5-18.0); LYMPH # 0.4 (1.2-3.4); LYMPH % 2.9 % (20.0-51.0); MEAN CELL VOLUME 100 fl (80.0-100.0); MEAN CORPUSCULAR HEMOGLOBIN 34 pg (27.0-31.0); MEAN CORPUSCULAR HGB CONC 34 g/dl (33.0-37.0); MEAN PLATELET VOLUME 9.9 fl (7.4-10.4); MONO # 0.4 (0.1-0.6); MONO % 3.4 % (1.7-9.3); PLATELET COUNT 198 K/mm3 (130-400); RED BLOOD COUNT 4.26 M/mm3 (4.20-5.60); REDCELL DISTRIBUTION WIDTH-CV 13.1 % (11.5-14.5)
[2019-10-08 07:42] LABS: INR 1.3 (0.8-3.0)
[2019-10-08 07:49] LABS: ALANINE AMINOTRANSFERASE 36 U/L (21-72); ALBUMIN 4.3 gm/dL (3.5-5.0); ALKALINE PHOSPHATASE 118 U/L (50-136); ANION GAP 12 mmol/L (7-16); AST,SGOT 32 U/L (15-37); BILIRUBIN,TOTAL 1.3 mg/dL (0.0-1.0); BLOOD UREA NITROGEN 19 mg/dL (9-20); C-REACTIVE PROTEIN 8.7 mg/dL (0.0-0.9); CARBON DIOXIDE 27 mmol/L (22-30); CHLORIDE 94 mmol/L (98-107); CREATININE, serum 0.93 (0.66-1.25); GLUCOSE 109 mg/dL (74-106); LIPASE 47 U/L (23-300); POTASSIUM 3.7 mmol/L (3.4-5.0); SODIUM 132 mmol/L (137-145); TOTAL PROTEIN 7.4 gm/dL (6.4-8.2)
[2019-10-08 07:57] LABS: TROPONIN-I < 0.012 ng/mL (0.000-0.035)
[2019-10-08] MEDS ORDERED: VITRON-C PO (08:43)
[2019-10-08] MEDS ORDERED: RECLAST5 MG/100 M IV (08:46)
--- NOTE | 2019-10-08 11:30 | NUR ---
PATIENT ARRIVED TO ROOM 324 VIA CART FROM ED. PATIENT SETTELED INTO ROOM. CALL LIGHT WITHIN REACH. PRESENT AT THE BEDSIDE.
[2019-10-08 11:49] VITALS: BP 148/85; PULSE 117; TEMP 98.1
--- NOTE | 2019-10-08 12:50 | NUR ---
16 SYRIAC LUIS CATHETER INSERTED VIA STERILE TECHNIQUE PER DR. SMITH ORDERS. 930MLS OF CLEAR, YELLOW URINE RETURNED. 10 MLS OF STERILE WATER INSERTED INTO BALLOON. STAT LOCK PLACED ON RIGHT THIGH. AZAM CARE AND CATHETER CARE PROVIDED. UA SENT TO LAB. PATIENT TOLERATED WELL.
--- NOTE | 2019-10-08 13:00 | NUR ---
SEE SHIFT ASSESSMENT.
[2019-10-08 13:02] LABS: COLLECTION METHOD CLEAN CATCH
[2019-10-08 13:07] LABS: PH 5 (5-8); SQUAMOUS EPITHELIAL 0-2 /hpf; URINE APPEARANCE Clear; URINE BACTERIA None Seen /hpf; URINE BILIRUBIN Negative (NEGATIVE); URINE BLOOD Negative (NEGATIVE); URINE COLOR Yellow; URINE GLUCOSE Negative (NEGATIVE); URINE KETONE Negative (NEGATIVE); URINE LEUKOCYTE ESTERASE Negative (NEGATIVE); URINE NITRATE Negative (NEGATIVE); URINE PROTEIN(semi-quant) Negative (NEGATIVE); URINE RBC 0-2 /hpf; URINE UROBILINOGEN Negative (NEGATIVE)
[2019-10-08 16:06] VITALS: BP 144/88; PULSE 112; TEMP 98.9
--- NOTE | 2019-10-08 19:40 | NUR ---
Pt resting with HOB elevated. Rates pain in upper abdomen radiaiting to back /10. Denies need for pain medication at this time. Respiraiotns even and unlabored. Wheezes ausculated throughout lung shepard. Spo2 is 89% on RA. RT called and pt placed on O2@1L. Indwelling azar catheter to dependent drainage. Urine is lucy with occasional clots. Abdomen is distended. BS+. L AC IV site with IVF infusing. Telemetry in place- A.fib. Pt denies any needs at this time.
[2019-10-08 20:00] VITALS: BP 116/69; PULSE 125; TEMP 98.6
[2019-10-08 23:20] VITALS: BP 114/71; PULSE 95; TEMP 98.3
[2019-10-09 03:59] VITALS: BP 105/47; PULSE 92; TEMP 98.1
--- NOTE | 2019-10-09 05:20 | NUR ---
Pt hollering out this AM in pain. He will not use the call light and has required frequent checks. Pt rating pain 7/10 in abdomen, radiating to back. This was after being given Percocet previously. PRN IV pain medications given for breakthrough pain. Pt did not sleep very well and woke frequently. He also had frequent complaints about being NPO after midnight. Pt reassured multiple times.
[2019-10-09 07:34] VITALS: BP 106/54; PULSE 96; TEMP 98.1
[2019-10-09 07:34] LABS: INR 1.4 (0.8-3.0); PROTHROMBIN TIME 16.4 SECONDS (9.7-12.8)
[2019-10-09 07:35] LABS: MEAN CELL VOLUME 102 fl (80.0-100.0); MEAN CORPUSCULAR HGB CONC 34 g/dl (33.0-37.0); MEAN PLATELET VOLUME 10.4 fl (7.4-10.4); PLATELET COUNT 157 K/mm3 (130-400); RED BLOOD COUNT 3.54 M/mm3 (4.20-5.60); REDCELL DISTRIBUTION WIDTH-CV 13.4 % (11.5-14.5)
[2019-10-09 07:37] LABS: MEAN CORPUSCULAR HEMOGLOBIN 34 pg (27.0-31.0)
[2019-10-09 07:39] LABS: HEMOGLOBIN 12.2 g/dl (13.5-18.0)
[2019-10-09 07:42] LABS: ALBUMIN 3.3 gm/dL (3.5-5.0); CALCIUM 7.6 mg/dL (8.4-10.2); CREATININE, serum 1.24 (0.66-1.25); MAGNESIUM 1.3 mg/dL (1.6-2.3); POTASSIUM 4.3 mmol/L (3.4-5.0); TOTAL PROTEIN 6.1 gm/dL (6.4-8.2)
[2019-10-09 08:21] LABS: BAND 64 % (0-10); LYMPHOCYTE 2 % (20.0-51.0); METAMYELOCYTE 1 % (0-0); NEUTROPHILS 32 % (42.0-75.2); PLATELET ESTIMATE NORMAL (NORMAL)
--- NOTE | 2019-10-09 11:06 | NUR ---
DESHAWN met with the patient to discuss a discharge plan. The patient lives in [place] with his , [place]. The patient has a cane and walker and reports that his assists with ADLs. The patient's PCP is Dr. Watts and patient receives medications from [facility]. The patient's picks up his medications.The patient does not have advanced directives in the EMR but states they are completed and designate this , [place]. The patient plans to return home upon discharge. hospitality services manager will continue to follow to ensure a safe discharge.
[2019-10-09 11:35] VITALS: BP 116/65; PULSE 96; TEMP 97.5
[2019-10-09 15:32] VITALS: BP 123/76; PULSE 99; TEMP 97.8
[2019-10-09 20:00] VITALS: BP 127/79; PULSE 100; TEMP 98.2
--- NOTE | 2019-10-09 21:09 | NUR ---
PATIENT TRIES TO HAVE BM, ONLY RESULTED WITH SMALL FORMED STOOL. MEDICATED WITH PERCOCET 10/325 1 TAB FOR BACK AND ABDOMINAL PAIN. HAS FREQUENT LOUD OUTBURSTS QUIETS WITH REDIRECTION. ABDOMEN IS DISTENDED AND FIRM. WILL BE NPO AFTER MIDNIGHT FOR LAP MATTHEW. CONSENT IS SIGNED.
--- NOTE | 2019-10-09 22:34 | NUR ---
PT STATES "JUST GO AHEAD AND GIVE ME THE MORPHINE", RATES PAIN 6/10 TO BACK. MEDICATED WITH MORPHINE 3MG IVP NOW.
[2019-10-09 23:59] VITALS: BP 106/84; PULSE 88; TEMP 98.2
[2019-10-10] VITALS (740 sets, daily range): BP systolic 63–138; BP diastolic 41–82; PULSE 69–94; TEMP 97.9–99; O2SAT 72–100
--- NOTE | 2019-10-10 01:12 | NUR ---
Patient moaning in pain, medicated with Morphine 3mg IVP and Percocet 10 1 tab at this time.
--- NOTE | 2019-10-10 04:20 | NUR ---
Pt asking for pain meds, medicated with Morphine 3mg IVP for back pain 04/20. Has been NPO for surgery.
--- NOTE | 2019-10-10 06:17 | NUR ---
Medicated with Morphine 3mg IVP at this time for pain 06/20 "all over". Takes preop med of Pepcid at this time with sip of water.
[2019-10-10 07:04] LABS: HEMATOCRIT 38.7 % (42.0-52.0); HEMOGLOBIN 12.9 g/dl (13.5-18.0); MEAN CELL VOLUME 103 fl (80.0-100.0); MEAN CORPUSCULAR HEMOGLOBIN 34 pg (27.0-31.0); MEAN CORPUSCULAR HGB CONC 33 g/dl (33.0-37.0); MEAN PLATELET VOLUME 11.1 fl (7.4-10.4); PLATELET COUNT 131 K/mm3 (130-400); RED BLOOD COUNT 3.76 M/mm3 (4.20-5.60); REDCELL DISTRIBUTION WIDTH-CV 13.7 % (11.5-14.5)
[2019-10-10 07:09] LABS: ALBUMIN 3.5 gm/dL (3.5-5.0); BILIRUBIN,TOTAL 0.6 mg/dL (0.0-1.0); CALCIUM 7.7 mg/dL (8.4-10.2); CREATININE, serum 1.07 (0.66-1.25); MAGNESIUM 3.3 mg/dL (1.6-2.3); TOTAL PROTEIN 6.7 gm/dL (6.4-8.2)
[2019-10-10 07:20] LABS: INR 1.1 (0.8-3.0); PROTHROMBIN TIME 12.8 SECONDS (9.7-12.8)
--- NOTE | 2019-10-10 07:36 | NUR ---
Patient to OR with OR staff. Attempted x3 to call report to SHOW HOST/HOSTESS, no answer. Will continue to attempt to contact SHOW HOST/HOSTESS.
--- NOTE | 2019-10-10 07:41 | NUR ---
Patient report declined by CIVIL DESIGNER.
[2019-10-10 08:20] LABS: BAND 56 % (0-10); LYMPHOCYTE 1 % (20.0-51.0); NEUTROPHILS 40 % (42.0-75.2); PLATELET ESTIMATE NORMAL (NORMAL)
--- NOTE | 2019-10-10 11:30 | NUR ---
PATIENT HERE AFTER OPEN MATTHEW IN OR WITH DR. BUNN. HE ARRIVES INTUBATED AND SEDATED. DRESSING IS CLEAN AND DRY. HYPOTENSIVE UPON ARRIVAL. FLUID BOLUS STARTED PER VERBAL ORDER FROM DR. GALARZA. PATIENT ASSESSED AND CARE TAKEN OVER.
--- NOTE | 2019-10-10 11:40 | NUR ---
DR. GALARZA IN ROOM TO PLACE CENTRAL LINE.
[2019-10-10 13:29] LABS: SALICYLATE < 1.0 mg/dL
--- NOTE | 2019-10-10 13:31 | NUR ---
Vancomycin Initial Dosing Pharmacy Note Ordering provider: Alex Helton MD Indication/duration: SEPTIC SHOCK Relevant comorbidities: S/P OPEN CHOLECYSTECTOMY LABS: WBC 16.2, SCr 1.1, CrCl ~60 Recommendation: VANCOMYCIN 17 MG/KG Loading dose: 1.5 grams Maintenance dose: VANCOMYCIN 1.5 grams every 12 hours Trough goal: 15-20 ug/mL. TROUGH 10/12 @ 0115
[2019-10-10 13:40] LABS: TROPONIN-I 0.019 ng/mL (0.000-0.035)
[2019-10-10 14:02] LABS: ARTERIAL BLD GAS O2 SATURATION 96.9 % (92-100); ARTERIAL BLD GAS TCO2 CT 15.7; ARTERIAL BLOOD GAS BASE EXCESS -8.4 (-2-2); ARTERIAL BLOOD GAS HCO3 14.9 meq/L (22-26); ARTERIAL BLOOD GAS PO2 88.4 mmHg (80-100); ARTERIAL BLOOD GAS pH 7.38 (7.35-7.45)
--- NOTE | 2019-10-10 14:15 | NUR ---
DR. GALARZA CALLS FOR UPDATE AT THIS TIME.
--- NOTE | 2019-10-10 15:50 | NUR ---
DR. HUMMEL HERE TO PLACE OG TUBE VIA EGD.
--- NOTE | 2019-10-10 15:51 | NUR ---
DR. HUMMEL HERE TO SEE PATIENT. PLAN FOR EGD TO PLACE OG TUBE IN CORRECT POSITION.
--- NOTE | 2019-10-10 19:00 | NUR ---
BEDSIDE REPORT GIVEN TO GISSELLE SANDERS. IV GTTS, TUBES, VENT SETTINGS AND LINES REVIEWED TOGETHER. DAUGHTER, VIOLET, IN ROOM FOR BEDSIDE REPORT. ABDOMINAL INCISION REVIEWED TOGETHER. DRESSING CLEAN AND DRY. SHEETS CHANGED AT THIS TIME D/T DRAINAGE FROM ARTERIAL LINE. CARE TURNED OVER AT THIS TIME.
[2019-10-10 20:57] LABS: HEMOGLOBIN 11.9 g/dl (13.5-18.0); MEAN CELL VOLUME 101 fl (80.0-100.0); MEAN CORPUSCULAR HEMOGLOBIN 35 pg (27.0-31.0); MEAN CORPUSCULAR HGB CONC 34 g/dl (33.0-37.0); MEAN PLATELET VOLUME 11.3 fl (7.4-10.4); PLATELET COUNT 139 K/mm3 (130-400); RED BLOOD COUNT 3.44 M/mm3 (4.20-5.60); REDCELL DISTRIBUTION WIDTH-CV 13.9 % (11.5-14.5)
[2019-10-10 20:59] LABS: HEMATOCRIT 34.7 % (42.0-52.0)
[2019-10-10 21:09] LABS: CALCIUM 7.1 mg/dL (8.4-10.2); CREATININE, serum 1.03 (0.66-1.25); MAGNESIUM 3.1 mg/dL (1.6-2.3); PHOSPHOROUS 3.1 mg/dL (2.5-4.5); POTASSIUM 3.8 mmol/L (3.4-5.0)
[2019-10-10 21:31] LABS: BAND 24 % (0-10); NEUTROPHILS 74 % (42.0-75.2); PLATELET ESTIMATE DECREASED (NORMAL)
[2019-10-11] VITALS (1382 sets, daily range): BP systolic 88–132; BP diastolic 60–99; PULSE 67–105; TEMP 98.4–98.7; O2SAT 74–100
--- NOTE | 2019-10-11 01:00 | NUR ---
PT'S ART LINE LEAKING AND SOFT WRIST RESTRAINT DAMP WITH BLOOD. THIS RN ATTEMPTED TO DO CHANGE DRESSING AND IN THE PROCESS OF CHANGING THE DRESSING, ART LINE ACCIDENTALLY GOT PULLED OUT. MANUAL PRESSURE APPLIED FOR ABOUT 3-5 MINS AND HEMOSTASIS ACHIEVED. PRESSURE DRESSING REMAINS IN PLACE, NO BLEEDING NOTED.
[2019-10-11 05:28] LABS: ARTERIAL BLD GAS O2 SATURATION 98.8 % (92-100); ARTERIAL BLD GAS TCO2 CT 18.3; ARTERIAL BLOOD GAS BASE EXCESS -5.8 (-2-2); ARTERIAL BLOOD GAS HCO3 17.4 meq/L (22-26); ARTERIAL BLOOD GAS pH 7.41 (7.35-7.45)
[2019-10-11 05:29] LABS: ARTERIAL BLOOD GAS PO2 146.7 mmHg (80-100)
--- NOTE | 2019-10-11 05:46 | NUR ---
PT HAS NOT BEEN INTUBATED FOR MORE THAN 24 HOURS. THEREFORE DUE TO PROTOCOL WEANING TRIAL HAS NOT BEEN INITIATED THIS MORNING. PT IS ON LAST DOCUMENTED SETTINGS AND IS CARLIN WELL WITH NO DISTRESS NOTED AT THIS TIME. WILL CONTINUE TO MONITOR AND ASSESS AND WILL NOTIFY NURSE AND DAYSHIFT RT OF NO WEANING TRIAL BEING DONE. AFTER AM ABG FI02 WAS TURNED DOWN FROM 60% TO 50% DUE TO PA02 BEING 146.
[2019-10-11 06:43] LABS: HEMOGLOBIN 11.6 g/dl (13.5-18.0); MEAN CELL VOLUME 101 fl (80.0-100.0); MEAN CORPUSCULAR HEMOGLOBIN 34 pg (27.0-31.0); MEAN CORPUSCULAR HGB CONC 34 g/dl (33.0-37.0); MEAN PLATELET VOLUME 11.4 fl (7.4-10.4); PLATELET COUNT 113 K/mm3 (130-400); RED BLOOD COUNT 3.37 M/mm3 (4.20-5.60); REDCELL DISTRIBUTION WIDTH-CV 13.9 % (11.5-14.5)
[2019-10-11 06:54] LABS: HEMATOCRIT 33.9 % (42.0-52.0)
--- NOTE | 2019-10-11 07:00 | NUR ---
Bedside report recieved from GISSELLE Nieto - gtts, tubes, lines, incisons assessed. Spouse at bedside - education provided - questions invited and answered. Pt able to follow commands. No facial grimmace observed.
[2019-10-11 07:14] LABS: ALBUMIN 2.8 gm/dL (3.5-5.0); BILIRUBIN,TOTAL 0.4 mg/dL (0.0-1.0); CREATININE, serum 1.06 (0.66-1.25); MAGNESIUM 3.2 mg/dL (1.6-2.3); POTASSIUM 3.7 mmol/L (3.4-5.0); TOTAL PROTEIN 5.5 gm/dL (6.4-8.2)
[2019-10-11 11:21] LABS: BAND 9 % (0-10); EOSINOPHIL 1 % (0-4); LYMPHOCYTE 5 % (20.0-51.0); NEUTROPHILS 85 % (42.0-75.2)
[2019-10-11 11:22] LABS: PLATELET ESTIMATE NORMAL (NORMAL)
--- NOTE | 2019-10-11 17:00 | NUR ---
Pt awake with eyes open intermittently, able to follow commands and deny pain with head movements at current sedation level - therefore no decrease in sedation required to assess
[2019-10-12] VITALS (1382 sets, daily range): BP systolic 99–123; BP diastolic 65–107; PULSE 78–132; TEMP 97.7–98.7; O2SAT 70–100
--- NOTE | 2019-10-12 00:25 | NUR ---
PT HARD TO AROUSE BY VOICE AND STERNAL RUB SO DECREASED DRIP. VITAL SIGNS STABLE.
--- NOTE | 2019-10-12 00:29 | NUR ---
PT DIFFUCULT TO AROUSE, NOT RESPONSIVE TO VOICE AND TRIED STERNAL RUB. VITAL SIGNS STABLE.
[2019-10-12 05:18] LABS: ARTERIAL BLD GAS O2 SATURATION 97.8 % (92-100); ARTERIAL BLD GAS TCO2 CT 16.8; ARTERIAL BLOOD GAS BASE EXCESS -7.4 (-2-2); ARTERIAL BLOOD GAS PCO2 26.6 mmHg (35-45); ARTERIAL BLOOD GAS PO2 108.3 mmHg (80-100)
--- NOTE | 2019-10-12 05:20 | NUR ---
PT DOES NOT CARLIN SEDATION VACATION WELL, THEREFORE NO WEANING TRIAL IS BEING DONE AT THIS TIME. PT IS ON DOCUMENTED SETTINGS. WILL CONTINUE TO MONITOR AND ASSESS. WILL NOTIFY DAY SHIFT RT.
--- NOTE | 2019-10-12 05:58 | NUR ---
PATIENT BECAME AGITATED AND FIGHTING THE TUBE, PULLING ON RESTRAINTS.
[2019-10-12 06:06] LABS: BASO % 0.3 % (0.0-2.0); GRAN % 87.9 % (42.2-75.2); HEMOGLOBIN 10.4 g/dl (13.5-18.0); LYMPH # 0.3 (1.2-3.4); LYMPH % 3.2 % (20.0-51.0); MEAN CELL VOLUME 101 fl (80.0-100.0); MEAN CORPUSCULAR HEMOGLOBIN 34 pg (27.0-31.0); MEAN CORPUSCULAR HGB CONC 33 g/dl (33.0-37.0); MEAN PLATELET VOLUME 10.8 fl (7.4-10.4); MONO # 0.8 (0.1-0.6); MONO % 7.6 % (1.7-9.3); PLATELET COUNT 89 K/mm3 (130-400); RED BLOOD COUNT 3.09 M/mm3 (4.20-5.60); REDCELL DISTRIBUTION WIDTH-CV 14.4 % (11.5-14.5)
[2019-10-12 06:09] LABS: HEMATOCRIT 31.1 % (42.0-52.0)
[2019-10-12 06:12] LABS: ALBUMIN 2.5 gm/dL (3.5-5.0); BILIRUBIN,TOTAL 0.3 mg/dL (0.0-1.0); CALCIUM 7.1 mg/dL (8.4-10.2); CREATININE, serum 0.79 (0.66-1.25); MAGNESIUM 2.8 mg/dL (1.6-2.3); PHOSPHOROUS 2.3 mg/dL (2.5-4.5); POTASSIUM 3.8 mmol/L (3.4-5.0); TOTAL PROTEIN 5.1 gm/dL (6.4-8.2)
--- NOTE | 2019-10-12 07:00 | NUR ---
BEDSIDE REPORT RECEIVED FROM GISSELLE ALVAREZ .PATIENT SEDATED AND INTUBATED. ALL LINES, TUBES, DRIPS AND VENT SETTINGS REVIEWED. AT BEDSIDE AND PARTICIPATES IN REPORT.
--- NOTE | 2019-10-12 07:45 | NUR ---
SEDATION DECREASED PER DR. GALARZA ORDER. WILL PROCEED WITH WEANING TRIAL WHEN PATIENT IS MORE AWAKE.
--- NOTE | 2019-10-12 08:04 | NUR ---
ALL SEDATION TURNED OFF. PATIENT WAKENS, BUT IS NOT FOLLOWING COMMANDS AT THIS TIME.
--- NOTE | 2019-10-12 08:20 | NUR ---
PT PLACED ON CPAP FOR TRIAL AFTER SEDATION WAS DECREASED BY GISSELLE FLEMING. DR. GALARZA IS AT BEDSIDE.
--- NOTE | 2019-10-12 08:34 | NUR ---
PATIENT HAS BEEN ON WEANING TRIAL FOR ROUGHLY 30 MINUTES AT THIS TIME. HE IS AWAKE, LOOKING OFF TO RIGHT THEN LEFT. HE DOES NOT ACKOWLEDGE STAFF TALKING TO HIM, HE DOES NOT FOLLOW DIRECTIONS. HE BECOMES AGITATED, COUGHING AND TACHYCARDIC WITH HR IN 140-150s. DR. GALARZA GIVES ORDER TO RESUME PREVIOUS DOSE OF SEDATION AND PUT PATIENT BACK ON ASSIST CONTROL VENT SETTINGS.
--- NOTE | 2019-10-12 08:47 | NUR ---
PT PLACED BACK ON A/C PER DR. GALARZA'S REQUEST
--- NOTE | 2019-10-12 09:25 | NUR ---
Welding Operator attended clinical rounds with Hospitalist. Patient currently intubated and sedated. SW to continue to follow.
--- NOTE | 2019-10-12 09:30 | NUR ---
DR. SMITH HERE TO SEE PATIENT. UPDATE GIVEN
--- NOTE | 2019-10-12 14:10 | NUR ---
2ND WEANING TRIAL ATTEMPTED AT THIS TIME. PER CANARY BREEDER PATIENCE, TIDAL VOLUMES ARE TOO LOW. PATIENT IS DROWSY AND WHEN HE WAKES, DOES NOT FOLLOW COMMANDS. WILL INCREASE SEDATION BACK TO PREVIOUS RATE AND CONTINUE TO MONITOR.
[2019-10-12 16:17] LABS: PHOSPHOROUS 3.3 mg/dL (2.5-4.5)
--- NOTE | 2019-10-12 19:00 | NUR ---
BEDSIDE REPORT GIVEN TO GISSELLE DILLADR. ALL LINES, VENT SETTINGS, GTTS AND TUBES REVIEWED. TUBE FEEDS STARTED AT THIS TIME. PATIENT REPOSITIONED. CARE TURNED OVER AT THIS TIME.
--- NOTE | 2019-10-12 23:09 | NUR ---
PT RESTING IN BED, APPEARS COMFORTABLE AT THIS TIME, REMAINS ON VENT WITH PROPOFOL AND FENT FOR SEDATION AND PAIN. VSS AT THIS TIME. TF-PIVOT 1.5 STARTED ON PREVIOUS SHIFT AT RATE 15ML, 0ML RESIDUALS AT THIS TIME, AND PT APPEARS TO BE TOLERATING IT. WILL CONTINUE TO MONITOR PT STATUS AND UPDATE PROVIDERS NEEDED.
[2019-10-13] VITALS (887 sets, daily range): BP systolic 107–154; BP diastolic 63–96; PULSE 93–144; TEMP 97.5–98.2; O2SAT 75–100
[2019-10-13 05:40] LABS: ARTERIAL BLD GAS O2 SATURATION 98.5 % (92-100); ARTERIAL BLD GAS TCO2 CT 20.3; ARTERIAL BLOOD GAS BASE EXCESS -4.2 (-2-2); ARTERIAL BLOOD GAS HCO3 19.4 meq/L (22-26); ARTERIAL BLOOD GAS PCO2 31.7 mmHg (35-45)
[2019-10-13 06:04] LABS: HEMOGLOBIN 10.7 g/dl (13.5-18.0); MEAN CELL VOLUME 101 fl (80.0-100.0); MEAN CORPUSCULAR HEMOGLOBIN 34 pg (27.0-31.0); MEAN CORPUSCULAR HGB CONC 33 g/dl (33.0-37.0); MEAN PLATELET VOLUME 10.9 fl (7.4-10.4); PLATELET COUNT 97 K/mm3 (130-400); RED BLOOD COUNT 3.18 M/mm3 (4.20-5.60); REDCELL DISTRIBUTION WIDTH-CV 14.6 % (11.5-14.5)
[2019-10-13 06:08] LABS: HEMATOCRIT 32.2 % (42.0-52.0)
[2019-10-13 06:10] LABS: ALBUMIN 2.4 gm/dL (3.5-5.0); BILIRUBIN,TOTAL 0.4 mg/dL (0.0-1.0); CALCIUM 7.4 mg/dL (8.4-10.2); CREATININE, serum 0.67 (0.66-1.25); MAGNESIUM 2.4 mg/dL (1.6-2.3); PHOSPHOROUS 2.4 mg/dL (2.5-4.5); POTASSIUM 3.8 mmol/L (3.4-5.0); TOTAL PROTEIN 5.1 gm/dL (6.4-8.2)
--- NOTE | 2019-10-13 06:11 | NUR ---
PT STILL NOT F/C, PROP AND FENT NOW ON STANDBY OF 599.
--- NOTE | 2019-10-13 07:06 | NUR ---
Report recieved from GISSELLE Tucker. Patient remains ventilated and sedated. Soft wrist restraints remain in place. ETT placement and ventilator settings confirmed. OG placement verified and tube feed rate checked. RSC triple lumen without complications. IV gtt concentrations and rates confirmed. Castro catheter with positive UO. Care assumed at this time.
[2019-10-13 07:26] LABS: BAND 4 % (0-10); EOSINOPHIL 1 % (0-4); LYMPHOCYTE 17 % (20.0-51.0); METAMYELOCYTE 1 % (0-0); NEUTROPHILS 66 % (42.0-75.2); PLATELET ESTIMATE DECREASED (NORMAL)
--- NOTE | 2019-10-13 07:30 | NUR ---
Dr. Dumont rounds at this time. VORB at bedside to turn sedation off completly at this time. Other orders entered CPOE. Care ongoing.
--- NOTE | 2019-10-13 08:15 | NUR ---
Dr. Hetlon rounds at this time. Orders as entered CPOE.
--- NOTE | 2019-10-13 10:36 | NUR ---
ENTRY SPECIALIST student attended clinical rounds with the team. The patient is currently intubated, present. CT was ordered for the patient. services mgr will continue to monitor.
--- NOTE | 2019-10-13 11:26 | NUR ---
Tube feed increased to 35ml/hr and running at goal.
--- NOTE | 2019-10-13 11:46 | NUR ---
Dr. Torres calls for phone report and is provided such. No new orders recieved at this time.
--- NOTE | 2019-10-13 13:43 | NUR ---
Patient transported to CT at this time with RN and RT with transport monitor in place for ordered scans.
--- NOTE | 2019-10-13 14:02 | NUR ---
Patient returns from CT and is returned to ICU monitor. No complications noted during scan or transportation. Care ongoing.
--- NOTE | 2019-10-13 14:10 | NUR ---
Dr. Rubin rounds at this time. No new orders recieved.
[2019-10-13 15:38] LABS: PHOSPHOROUS 3.5 mg/dL (2.5-4.5); POTASSIUM 4.2 mmol/L (3.4-5.0)
--- NOTE | 2019-10-13 17:32 | NUR ---
Dr. Domínguez rounds on patient at this time. Written orders provided. Care ongoing.
[2019-10-14] VITALS (1002 sets, daily range): BP systolic 95–155; BP diastolic 65–108; PULSE 10–141; TEMP 97.8–99.5; O2SAT 76–100
--- NOTE | 2019-10-14 04:13 | NUR ---
PATIENT APPEARS ANXIOUS AND MOVES ABOUT,PULSE INCREASE, JUST BEFORE THREE HOURS OF VERSED ADMINISTRATION, PROPOFOL, AND FENTANYLS AT SAME DOSE ADMINISTRATION
[2019-10-14 05:20] LABS: HEMOGLOBIN 11.3 g/dl (13.5-18.0); MEAN CELL VOLUME 102 fl (80.0-100.0); MEAN CORPUSCULAR HEMOGLOBIN 34 pg (27.0-31.0); MEAN CORPUSCULAR HGB CONC 33 g/dl (33.0-37.0); MEAN PLATELET VOLUME 10.8 fl (7.4-10.4); PLATELET COUNT 137 K/mm3 (130-400); RED BLOOD COUNT 3.32 M/mm3 (4.20-5.60); REDCELL DISTRIBUTION WIDTH-CV 14.5 % (11.5-14.5)
[2019-10-14 05:21] LABS: HEMATOCRIT 33.9 % (42.0-52.0)
[2019-10-14 05:28] LABS: ARTERIAL BLD GAS O2 SATURATION 93.2 % (92-100); ARTERIAL BLD GAS TCO2 CT 22.5; ARTERIAL BLOOD GAS BASE EXCESS -1.9 (-2-2); ARTERIAL BLOOD GAS HCO3 21.5 meq/L (22-26); ARTERIAL BLOOD GAS PCO2 32.5 mmHg (35-45); ARTERIAL BLOOD GAS PO2 65.1 mmHg (80-100); ARTERIAL BLOOD GAS pH 7.44 (7.35-7.45)
[2019-10-14 06:11] LABS: BAND 14 % (0-10); EOSINOPHIL 3 % (0-4); LYMPHOCYTE 14 % (20.0-51.0); METAMYELOCYTE 1 % (0-0); NEUTROPHILS 63 % (42.0-75.2); PLATELET ESTIMATE NORMAL (NORMAL)
[2019-10-14 06:21] LABS: CALCIUM 7.8 mg/dL (8.4-10.2); CREATININE, serum 0.67 (0.66-1.25); POTASSIUM 3.9 mmol/L (3.4-5.0)
--- NOTE | 2019-10-14 10:15 | NUR ---
Pushpa,RT here for EEG. Sedation titrated down.
--- NOTE | 2019-10-14 11:15 | NUR ---
EEG complete. Pt tolerated test well. RASS =0. Pt unable to follow commands. MD Tim notified. MD Joseluis here on unit and aware
[2019-10-14 16:07] LABS: MAGNESIUM 1.7 mg/dL (1.6-2.3); PHOSPHOROUS 2.9 mg/dL (2.5-4.5); POTASSIUM 3.6 mmol/L (3.4-5.0)
--- NOTE | 2019-10-14 19:30 | NUR ---
Bedside report received from GISSELLE Hogue. All lines and tubes reviewed and care assumed at this time.
--- NOTE | 2019-10-14 23:06 | NUR ---
Patient resting calmly in bed. Occasional pulls agains restraints and coughs against ET tube but suctioning and repositioning seem to help. Castro draining large amount of clear, yellow urine; see output tab.
[2019-10-15] VITALS (688 sets, daily range): BP systolic 103–160; BP diastolic 67–94; PULSE 89–133; TEMP 97.5–99.5; O2SAT 79–100
--- NOTE | 2019-10-15 03:00 | NUR ---
Patient resting in bed, occasionally pulls against restraints but only momentarily. Castro draining to gravity, IV infusing well, patient appears to be comfortable-not coughing against ET tube and no grimace or moaning noted.
[2019-10-15 05:36] LABS: ARTERIAL BLD GAS O2 SATURATION 95.5 % (92-100); ARTERIAL BLD GAS TCO2 CT 27.5; ARTERIAL BLOOD GAS BASE EXCESS 4.8 (-2-2); ARTERIAL BLOOD GAS HCO3 26.6 meq/L (22-26); ARTERIAL BLOOD GAS PCO2 30.6 mmHg (35-45); ARTERIAL BLOOD GAS PO2 72.7 mmHg (80-100); ARTERIAL BLOOD GAS pH 7.56 (7.35-7.45)
--- NOTE | 2019-10-15 06:27 | NUR ---
PT IS ON WEANING TRIAL CARLIN WELL WITH NO DISTRESS NOTED AT THIS TIME. RN AND DAY SHIFT RT WILL BE NOTIFIED.
--- NOTE | 2019-10-15 06:30 | NUR ---
Patient repositioned while on vent trial. After repositioning, ventilator entered apnea mode, COMMUNITY PRODUCT SPECIALIST notified and patient placed back on previous vent settings. Despite the apnea, patient tolerated repositioning well; did not pull at restraints. Patient does not follow commands but IV infusing well and azar drainint to gravity with great output-see output tab.
[2019-10-15 06:55] LABS: CALCIUM 8.2 mg/dL (8.4-10.2); CREATININE, serum 0.59 (0.66-1.25); POTASSIUM 3.2 mmol/L (3.4-5.0)
--- NOTE | 2019-10-15 07:26 | NUR ---
Bedside report given to GISSELLE Marcano. All lines reviewed and care trasnfered at this time.
--- NOTE | 2019-10-15 08:00 | NUR ---
Sedation off since 729. Opens eyes, no meaninful eye contact, follows commands intermittently (wiggles toes) reaction time delayed. Tolerating CPAP 5/5. at bedside, updated with each caregiver round.
[2019-10-15 08:45] LABS: HEMOGLOBIN 11.4 g/dl (13.5-18.0); MEAN CELL VOLUME 100 fl (80.0-100.0); MEAN CORPUSCULAR HEMOGLOBIN 34 pg (27.0-31.0); MEAN CORPUSCULAR HGB CONC 34 g/dl (33.0-37.0); MEAN PLATELET VOLUME 11.6 fl (7.4-10.4); PLATELET COUNT 201 K/mm3 (130-400); RED BLOOD COUNT 3.35 M/mm3 (4.20-5.60); REDCELL DISTRIBUTION WIDTH-CV 14.3 % (11.5-14.5)
[2019-10-15 08:47] LABS: HEMATOCRIT 33.6 % (42.0-52.0)
[2019-10-15 08:49] LABS: PROTHROMBIN TIME 11.8 SECONDS (9.7-12.8)
[2019-10-15 11:16] LABS: BAND 6 % (0-10); EOSINOPHIL 2 % (0-4); LYMPHOCYTE 10 % (20.0-51.0); MYELOCYTE 1 % (0-0); NEUTROPHILS 71 % (42.0-75.2); PLATELET ESTIMATE NORMAL (NORMAL)
--- NOTE | 2019-10-15 14:06 | NUR ---
AT THIS TIME PT WAS SWITCHED TO AC/VC DUE TO LOW VT'S POST MEDICATION DURING BEDSIDE PROCEDURE. PT WAS NOT APNEIC HOWEVER PT WAS NOT HITTING TARGET VOLUMES.
[2019-10-15 14:40] LABS: PLEURAL FLUID RBC 1000 /mm3 (0-0); PLEURAL FLUID WBC 1135 /mm3
[2019-10-15 14:49] LABS: GLUCOSE,PLEURAL FLUID 119 mg/dL
[2019-10-15 14:50] LABS: TOTAL PROTEIN,PLEURAL FLUID < 2.0 gm/dL
[2019-10-15 15:05] LABS: PLEURAL FLUID APPEARANCE CLEAR; PLEURAL FLUID COLOR YELLOW
[2019-10-15 16:13] LABS: MAGNESIUM 1.9 mg/dL (1.6-2.3); POTASSIUM 3.7 mmol/L (3.4-5.0)
[2019-10-15 16:42] LABS: ARTERIAL BLD GAS O2 SATURATION 95.1 % (92-100); ARTERIAL BLD GAS TCO2 CT 29.6; ARTERIAL BLOOD GAS BASE EXCESS 5.9 (-2-2); ARTERIAL BLOOD GAS HCO3 28.5 meq/L (22-26); ARTERIAL BLOOD GAS PCO2 34.1 mmHg (35-45); ARTERIAL BLOOD GAS PO2 72.1 mmHg (80-100); ARTERIAL BLOOD GAS pH 7.54 (7.35-7.45)
--- NOTE | 2019-10-15 17:06 | NUR ---
VT AT THIS TIME WAS DECREASED TO 350ML PER DR. GALARZA VIA TELEPHONE ORDER POST ABG RESULTS BEING REPORTED. AT THIS TIME PT WAS ALSO CHANGED FROM AC/VC TO AC/VC+ TO HELP WITH SYNCHRONY AND PT TOLERANCE.
--- NOTE | 2019-10-15 17:06 | NUR ---
UNABLE TO DO ORAL CARE AT THIS TIME. PT HAD A BOWEL MOVEMENT AND IS BEING CLEANED UP BY NURSING STAFF,
--- NOTE | 2019-10-15 18:14 | NUR ---
Sedation resumed as patient no longer tolerating CPAP. Alert majority of shift, does not make eye contact, reaches for tube when unrestrained.
--- NOTE | 2019-10-15 19:39 | NUR ---
Report to oncoming shift. Tubes lines reconciled. HR improved this evening rate now 80-100 remains afib. Peripheral edema improved this evening. Returned to AC mode, making vent changes to reduce alkalosis. Large liquid incontinent BM this afternoon. Holding colace.
--- NOTE | 2019-10-15 20:00 | NUR ---
PT assessed, vitals stable, repositioned. PT arousable to voice but does not follow directions (squeeze hands, shake head yes or no). Bed in low position, will continue to monitor.
[2019-10-15 22:11] LABS: ARTERIAL BLD GAS O2 SATURATION 97.1 % (92-100); ARTERIAL BLD GAS TCO2 CT 31.2; ARTERIAL BLOOD GAS BASE EXCESS 6.3 (-2-2); ARTERIAL BLOOD GAS PCO2 39.9 mmHg (35-45); ARTERIAL BLOOD GAS PO2 91.2 mmHg (80-100); ARTERIAL BLOOD GAS pH 7.49 (7.35-7.45)
[2019-10-16] VITALS (467 sets, daily range): BP systolic 108–137; BP diastolic 62–87; PULSE 80–108; TEMP 98.2–99.5; O2SAT 76–100
[2019-10-16 04:53] LABS: ARTERIAL BLD GAS O2 SATURATION 95.8 % (92-100); ARTERIAL BLD GAS TCO2 CT 28.7; ARTERIAL BLOOD GAS BASE EXCESS 4.5 (-2-2); ARTERIAL BLOOD GAS HCO3 27.6 meq/L (22-26); ARTERIAL BLOOD GAS PO2 78.3 mmHg (80-100)
--- NOTE | 2019-10-16 06:30 | NUR ---
PT ON WEANING TRAIL 03/15. CARLIN WELL NO DISTRESS NOTED. WILL NOTIFY DAY SHIFT RT AND WILL CONTINUE TO MONITOR AND ASSESS.
--- NOTE | 2019-10-16 07:19 | NUR ---
NIF -26 AT THIS TIME WITHOUT PT FOLLOWING COMMANDS.
[2019-10-16 07:23] LABS: HEMATOCRIT 30.8 % (42.0-52.0); HEMOGLOBIN 10.4 g/dl (13.5-18.0); MEAN CELL VOLUME 101 fl (80.0-100.0); MEAN CORPUSCULAR HEMOGLOBIN 34 pg (27.0-31.0); MEAN CORPUSCULAR HGB CONC 34 g/dl (33.0-37.0); MEAN PLATELET VOLUME 11.5 fl (7.4-10.4); PLATELET COUNT 250 K/mm3 (130-400); RED BLOOD COUNT 3.05 M/mm3 (4.20-5.60); REDCELL DISTRIBUTION WIDTH-CV 14.2 % (11.5-14.5)
[2019-10-16 07:27] LABS: CALCIUM 8.3 mg/dL (8.4-10.2); CREATININE, serum 0.6 (0.66-1.25); MAGNESIUM 1.8 mg/dL (1.6-2.3); POTASSIUM 3.9 mmol/L (3.4-5.0)
[2019-10-16 08:05] LABS: BAND 22 % (0-10); LYMPHOCYTE 9 % (20.0-51.0); NEUTROPHILS 62 % (42.0-75.2); PLATELET ESTIMATE NORMAL (NORMAL)
--- NOTE | 2019-10-16 08:56 | NUR ---
More alert this am. Critical Care Pulm in to assess changing diuretics to reduce alkalosis while continuing to diurese. PICC team in to place line. All sedation off. Repeat ABG results to determine ability to extubate.
[2019-10-16 09:51] LABS: ARTERIAL BLD GAS TCO2 CT 32.4; ARTERIAL BLOOD GAS BASE EXCESS 7.7 (-2-2); ARTERIAL BLOOD GAS HCO3 31.1 meq/L (22-26); ARTERIAL BLOOD GAS PCO2 39.2 mmHg (35-45); ARTERIAL BLOOD GAS PO2 88.6 mmHg (80-100); ARTERIAL BLOOD GAS pH 7.52 (7.35-7.45)
--- NOTE | 2019-10-16 10:05 | NUR ---
PT EXTUBATED TO 4L OXYMASK AT THIS TIME PER DR. GALARZA POST ABG. PT IS TOLERATING IT WELL. NO STRIDOR NOTED AT THIS TIME. PT SUCTIONED PRIOR TO EXTUBATION. PT ALSO SUCTIONED POST EXTUBATION ORALLY. NO SIGNS OF DISTRESS AT THIS TIME.
--- NOTE | 2019-10-16 10:05 | NUR ---
Extubated to 4L facemask, suctioning mod amount of clear thin oral secretions. Tolerating well with SPO2 high 90s.
--- NOTE | 2019-10-16 11:51 | NUR ---
SPO2 100% on 4L facemask. Groaning intermittently. in room with patient. States "he always does that"
--- NOTE | 2019-10-16 11:55 | NUR ---
Vascular US of RUE in progress d/t swelling and tenderness of Right arm and hand.
--- NOTE | 2019-10-16 14:45 | NUR ---
Continues to moan intermittently, occasionally able to verbalize needs, in between those times, he echoes what is being said on television.
[2019-10-16 16:14] LABS: ARTERIAL BLD GAS O2 SATURATION 92.7 % (92-100); ARTERIAL BLD GAS TCO2 CT 25.8; ARTERIAL BLOOD GAS BASE EXCESS 1.8 (-2-2); ARTERIAL BLOOD GAS HCO3 24.8 meq/L (22-26); ARTERIAL BLOOD GAS PCO2 33.3 mmHg (35-45); ARTERIAL BLOOD GAS pH 7.49 (7.35-7.45)
--- NOTE | 2019-10-16 19:30 | NUR ---
RECEIVED REPORT FROM GISSELLE BURDEN. PT LYING IN BED AND HOLLERS OUT OCCASSIONALLY. PT ON RA. PT UNABLE TO HAVE CONVERSATION WITH NURSE BUT IS ABLE TO EXPRESS THAT HE HURTS AND WANTS SOME WATER. FC PATENT AND DRAINING TO GRAVITY. VSS. CALL LIGHT WITHIN REACH.
[2019-10-17] VITALS (385 sets, daily range): BP systolic 100–134; BP diastolic 63–91; PULSE 77–92; TEMP 97.2–98.8; O2SAT 72–100
[2019-10-17 05:08] LABS: BASO % 0.2 % (0.0-2.0); EOS # 0.3 (0.0-0.7); EOS % 2.3 % (0-4.0); GRAN # 9.8 (1.4-6.5); GRAN % 79.7 % (42.2-75.2); HEMOGLOBIN 10.5 g/dl (13.5-18.0); LYMPH # 0.9 (1.2-3.4); LYMPH % 7.5 % (20.0-51.0); MEAN CELL VOLUME 101 fl (80.0-100.0); MEAN CORPUSCULAR HEMOGLOBIN 35 pg (27.0-31.0); MEAN CORPUSCULAR HGB CONC 34 g/dl (33.0-37.0); MEAN PLATELET VOLUME 10.5 fl (7.4-10.4); MONO # 1.1 (0.1-0.6); PLATELET COUNT 266 K/mm3 (130-400); RED BLOOD COUNT 3.04 M/mm3 (4.20-5.60); REDCELL DISTRIBUTION WIDTH-CV 13.8 % (11.5-14.5)
[2019-10-17 05:09] LABS: HEMATOCRIT 30.8 % (42.0-52.0)
[2019-10-17 05:24] LABS: BILIRUBIN,TOTAL 0.8 mg/dL (0.0-1.0); CALCIUM 8.4 mg/dL (8.4-10.2); CREATININE, serum 0.62 (0.66-1.25); POTASSIUM 3.4 mmol/L (3.4-5.0); TOTAL PROTEIN 6.3 gm/dL (6.4-8.2)
--- NOTE | 2019-10-17 07:22 | NUR ---
Report recieved from GISSELLE aCsey. Patient resting in bed in low and locked position, call light within reach, rails up x3, RSC triple lumen with dressing CDI. RUE edematous. RN report includes negative US exam of effective extremity. Care assumed at this time.
--- NOTE | 2019-10-17 08:00 | NUR ---
Dr. Dumont rounds at this time. Orders as entered CPOE.
--- NOTE | 2019-10-17 08:01 | NUR ---
Patient RUE with pitting edema. Dr. Dumont at bedside and provides VORB to remove RSC triple lumen. See associated documentation.
--- NOTE | 2019-10-17 08:30 | NUR ---
Patient frequently hollers, yells out and moans loudly. Pain is treated as documented in MAR. Patient is confused and frequent reorientation provided. Will continue to monitor.
--- NOTE | 2019-10-17 08:30 | NUR ---
Dr. Domínguez rounds at this time. No new orders recieved.
--- NOTE | 2019-10-17 08:45 | NUR ---
Dr. Barr rounds at this time. Orders as entered CPOE. Care ongoing.
--- NOTE | 2019-10-17 09:45 | NUR ---
Patient assisted to bedside recliner with assistance of PT and nursing staff x2. Patient walks with weak and shuffling gait but follow commands appropriately. Care ongoing.
--- NOTE | 2019-10-17 10:30 | NUR ---
Patient resting quietly with eyes closed in bedside recliner. in room and update provided. All questions asked answered.
--- NOTE | 2019-10-17 12:02 | NUR ---
Patient continues sleeping between disturbances. Care ongoing.
--- NOTE | 2019-10-17 12:07 | NUR ---
Dr. Wright rounds at this time. No new orders recieved.
--- NOTE | 2019-10-17 13:51 | NUR ---
Report received from Ellen Farrell Rn.Patient observed in recliner chair,resting quietly,eyes closed,respirations even and unlabored.
--- NOTE | 2019-10-17 16:00 | NUR ---
Patient is to the floor from ICU. Patient is drowsy. He wakes up but does not really answer questions. His is at bedside but will be leaving soon. Patient denies pain. No other changes at this time. Call light within reach. Bed alarm on.
--- NOTE | 2019-10-17 16:05 | NUR ---
Patient transported to surgical room 344 via bed with prior report called to GISSELLE Barrett. All patient belongings and chart sent with. accompanies. Care transferred at this time.
--- NOTE | 2019-10-17 20:55 | NUR ---
Lying in bed in supine position. Patient moans out at times. When staff enters room he gets loud and asks why we keep coming in and bothering him. Patient is confused. Attempted to reorient patient and explain to him why he was in the hospital. Right lower arm into hand with 2+ edema. Castro patent draining clear yellow urine. Right upper abd incision, umbilical, and back with edges well approximated, no redness/edema/discharge noted. Ask patient if he is in pain and he shakes his head no. Sterile dressing change performed to left upper arm PICC line and caps changed as well. Patient tolerates procedure with some difficulty. Patient did not eat supper. Reoffered to assist patient in eating and the patient declines and would like the tray removed from room. Patient asks to be left alone at this time. Denies further needs.
--- NOTE | 2019-10-17 21:57 | NUR ---
Patient continues to yell and scream out. Asked patient if he was having pain and he shakes head yes. Asked patient where he was having pain and he is not able to express where he is having the pain. Administered pain medication at this time. Since administered evening medications patient has had wet cough that is productive of clear to yellow mucus. Asked patient if he needs anything further at this time and he looks at this nurse and there is no reply from the patient.
--- NOTE | 2019-10-17 23:43 | NUR ---
Lying in bed with eyes closed. Respirations even and unlabored. No signs or symptoms of discomfort noted at this time.
[2019-10-18] VITALS (7 sets, daily range): BP systolic 107–143; BP diastolic 63–89; PULSE 81–94; TEMP 98.4–99.1
--- NOTE | 2019-10-18 01:58 | NUR ---
Lying in bed with eyes closed. Respirations even and unlabored. No signs or symptoms of discomfort noted at this time.
--- NOTE | 2019-10-18 02:20 | NUR ---
Complaining of pain in abd. Will moan out at times. Administered pain medication as prescribed. Patient denies further needs.
[2019-10-18 04:13] LABS: BASO % 0.4 % (0.0-2.0); EOS # 0.2 (0.0-0.7); EOS % 1.8 % (0-4.0); GRAN # 9.1 (1.4-6.5); GRAN % 79.4 % (42.2-75.2); HEMOGLOBIN 10.5 g/dl (13.5-18.0); LYMPH % 8.9 % (20.0-51.0); MEAN CELL VOLUME 101 fl (80.0-100.0); MEAN CORPUSCULAR HEMOGLOBIN 34 pg (27.0-31.0); MEAN CORPUSCULAR HGB CONC 33 g/dl (33.0-37.0); MEAN PLATELET VOLUME 10.6 fl (7.4-10.4); MONO % 8.5 % (1.7-9.3); PLATELET COUNT 317 K/mm3 (130-400); RED BLOOD COUNT 3.13 M/mm3 (4.20-5.60); REDCELL DISTRIBUTION WIDTH-CV 13.7 % (11.5-14.5)
--- NOTE | 2019-10-18 04:13 | NUR ---
Receive call from ICU that patient is having abnormal rhythms. Ms. Pastrana, hospitalist, in ICU at time. Orders received to administer Lopressor 2.5mg IV now along with the patient scheduled Cardizem. Medication administered at this time. Patient sitting up in bed. At times says that that hurts but when asked to clarify what is hurting patient just looks at you. Patient asks what the "purple sign" reads on his closet door. Allowed patient to review swallowing guidelines that the speech therapist felt were best for him. Patient denies further needs at this time.
[2019-10-18 04:17] LABS: HEMATOCRIT 31.6 % (42.0-52.0)
[2019-10-18 04:23] LABS: CALCIUM 8.5 mg/dL (8.4-10.2); CREATININE, serum 0.64 (0.66-1.25); POTASSIUM 3.6 mmol/L (3.4-5.0)
--- NOTE | 2019-10-18 05:06 | NUR ---
Lying in bed. Requests some applesauce to eat and pain medication for pain in right upper abd. Assisted patient in eating applesauce and also administered pain medication as prescribed. Patient asking questions about why he was in the hospital and what events occurred. Explained to the patient why he was in the hospital. Patient assisted to comfortable position. Denies further needs at this time.
--- NOTE | 2019-10-18 11:30 | NUR ---
Patient has been alert all morning. He continues to yell out. He know he is the hospital, he knows he had surgery and he knows who the president is. Otherwise he does know the month or time of day. He is able to verbalize needs and answer most questions. His azar catheter has discontinued. He is using his urinal without problems. He is refusing to eat, he has some ensure but did not like it. He stated everything tastes bad. Offered to get up to the chair but he refused. He is getting norco for pain. No other changes at this time. Call light within reach.
--- NOTE | 2019-10-18 16:22 | NUR ---
Plan: Plan to go to a skilled palcement. Assess: DESHAWN met with patient in rom with [place] at bedside. Patient gave auth to speak with about medical information. Patient reports that Dr. Watts is PCP and that he uses a walker 03/06. Patient reports that he has a stint in his heart and leg. Patient obtains RX at [facility]. DTR are apart of the patients emergency care support DTR Nicky Nye and Monisha Wilkes . Patient reports that he has completed outpatient PT in the past. Patient denies the use of a snf in that past and reports that he does not have a preference. Action:DESHAWN educated patient of choices. Patient has not signed choice form yet. DESHAWN sent Screen to [facility] at [phone] [facility] at [phone] and [facility] [phone]. Awaiting Screen
--- NOTE | 2019-10-18 19:00 | NUR ---
[place] have been discontinued as ordered, steri-strips placed to incision. Patient tolerated well. He refused to eat supper. He is passing flatus. He has been using the urinal without problems. He is drinking water and juice but not much else today. His was here for a little while but hse has gone home. No other changes at this time. Call light within reach. Bed alarm on.
--- NOTE | 2019-10-18 20:24 | NUR ---
Complaining of pain in abd. Administered pain medication as prescribed per patient request. Denies further needs at this time.
--- NOTE | 2019-10-18 20:51 | NUR ---
Patient continues to yell and scream out that his stomach is having pain near the incision site. Administered pain medication at this time. Patient denies further needs.
--- NOTE | 2019-10-18 22:36 | NUR ---
Patient continues to moan and yell at times. Denies needing anything.
[2019-10-19] VITALS: BP 123/64; PULSE 86; TEMP 98.1
[2019-10-19 03:02] VITALS: BP 141/73; PULSE 89; TEMP 97.9
--- NOTE | 2019-10-19 03:36 | NUR ---
Patient repeatedly yelling out curse words and other obscenities while watching the television. Explained to the patient that he is in the hospital and other patients are trying to sleep and they do not appreciate his yelling of obscenities. Patient then say "Oh". Patient continues to yell out.
--- NOTE | 2019-10-19 05:57 | NUR ---
Lying in bed screaming out that he needs pain medication. Says he is having pain in right side of abdomen. Administered Morphine as prescribed. Denies further needs at this time.
--- NOTE | 2019-10-19 06:26 | NUR ---
Lying in bed with eyes open. Yells out remarks to the TV. Not yelling out anything about having pain in abd. When asked if having pain he just looks at you and does not give response. Denies any needs at this time.
[2019-10-19 06:56] LABS: BILIRUBIN,TOTAL 0.5 mg/dL (0.0-1.0); CALCIUM 8.3 mg/dL (8.4-10.2); CREATININE, serum 0.53 (0.66-1.25); MAGNESIUM 1.7 mg/dL (1.6-2.3); PHOSPHOROUS 3.3 mg/dL (2.5-4.5); POTASSIUM 3.6 mmol/L (3.4-5.0); TOTAL PROTEIN 6.1 gm/dL (6.4-8.2)
[2019-10-19 07:03] LABS: PRE ALBUMIN 11.5 mg/dL (17.6-36.0)
[2019-10-19 07:05] VITALS: BP 125/75; PULSE 91; TEMP 98.6
--- NOTE | 2019-10-19 08:00 | NUR ---
UPON ENTRY TO THE ROOM THIS MORNING THE PATIENT IS SITTING UP IN BED. PATIENT IS A&OX4 WITH INTERMITTENT CONFUSION. PATIENT IS IMPULSIVE. BED ALARM ON. IRREGULAR HEART RHYTHM WITH TACHYCARDIA NOTED, OTHERWISE VSS. TELE IN PLACE. BOWEL SOUNDS ACTIVE ALL FOUR QUADRANTS. PATIENT TOLERATING DIET WITHOUT ANY COMPLAINTS OF N/V. RIGHT ABDOMEN TRANSVERSE INCISION SUPERVISOR CURING ROOM WITH EDGES WELL APPROXIMATED. UMBILICAL INCISION SUPERVISOR CURING ROOM WITH EDGES WELL APPROXIMATED. RIGHT-SIDE BACK PUNCTURE SITE CAR WITH EDGES WELL APPROXIMATED. GENERALIZED WEAKNESS NOTED. 1+ PITTING-EDEMA TO BLE. PICC TO LUE. CALL LIGHT WITHIN REACH. NO OTHER NEEDS AT THIS TIME.
[2019-10-19 11:23] VITALS: BP 131/65; PULSE 85; TEMP 98
--- NOTE | 2019-10-19 11:44 | NUR ---
Fatuma, with [facility], came and visited the patient and his ([place]). DESHAWN then met with the patient's to follow up on preference for SNF. A Patient Choice Form had been signed by [place] on 10/18 and is in the patient's chart. [place] reports that they would prefer [facility]. DESHAWN updated Izaiah at [facility]. Izaiah reports that they are still reviewing the referral. DESHAWN notified Giovanna at [facility] and will notify [facility]. DESHAWN to continue to follow.
--- NOTE | 2019-10-19 13:05 | NUR ---
Bladimir, at [facility], reports that they are able to accept the patient for a skilled stay. DESHAWN contacted the patient's , [place], to inform. [place] reports that they would still like to pursue with [facility]. DESHAWN informed Bladimir at [facility]. The patient is to discharge today, 10/19, to [facility] for a skilled stay. Transportation was arranged for 1600, via [facility]. DESHAWN informed the patient's RN and his , via phone. They were both in agreeance to the time. DESHAWN also explained the IM form to the patient's . The patient's verbalized understanding and gave SW her verbal consent. No additional needs at this time.
[2019-10-19] MEDS ORDERED: AMOXICILLIN 8751 TAB PO (13:13)
[2019-10-19] MEDS ORDERED: IPRATROPIUM BROM3 M1 IH (13:14)
[2019-10-19] MEDS ORDERED: CARDIZEM HC90 MG/CAP PO (13:19)
[2019-10-19] MEDS ORDERED: NEURONTIN100 MG/CAP PO (13:20)
[2019-10-19] MEDS ORDERED: COLACE 100100 MG/CAP PO (13:21)
[2019-10-19] MEDS ORDERED: LASIX 20MG TABL20 MG PO (13:21)
[2019-10-19] MEDS ORDERED: MAG-OX 400400 MG/TAB PO (13:21)
[2019-10-19] MEDS ORDERED: MIRALAX PA17 GM/Dose PO (13:21)
[2019-10-19] MEDS ORDERED: THIAMINE 1100 MG/TAB PO (13:22)
[2019-10-19] MEDS ORDERED: PROTONIX 40MG T40 MG PO (13:22)
[2019-10-19] MEDS ORDERED: MULTI-VITAMIN W1 TA1 PO (13:22)
[2019-10-19] MEDS ORDERED: FOLIC ACID 11 MG/TA1 PO (13:22)
[2019-10-19] MEDS ORDERED: K-TAB20 PO (13:23)
[2019-10-19] MEDS ORDERED: PERCOCET 325 MG1 TA3 PO (13:23)
[2019-10-19 15:32] VITALS: BP 131/65; PULSE 85; TEMP 98
--- NOTE | 2019-10-19 15:55 | NUR ---
REPORT CALLED TO GISSELLE OBRIEN AT [facility]. PATIENT PERSONAL BELONGINGS GATHERED. PATIENT TAKEN TO PRIVATE TRANSPORT VEHICLE VIA WHEELCHAIR BY SURGIAL STAFF. PATIENT TRANSFERRED.
== END 2019-10-19 15:55 | DRG 414 ==
LOC: COL.ER 06:53 → ICU 10:14 → SURG 10:14 → ICU 10-10 11:00 → SURG 10-17 16:21
PROVIDERS: Emergency Medicine; Family Medicine; Internal Medicine Gastroenterology; Internal Medicine Pulmonary Disease; Physician Assistant; Surgery; ADMIT Internal Medicine
PROC: 03HY32Z Insertion of Monitoring Device into Upper Artery, Percutaneous Approach (ICD-10-PCS; 2019-10-10)
PROC: 0BH17EZ Insertion of Endotracheal Airway into Trachea, Via Natural or Artificial Opening (ICD-10-PCS; 2019-10-10)
PROC: 5A1945Z Respiratory Ventilation, 24-96 Consecutive Hours (ICD-10-PCS; 2019-10-10)
PROC: 02HV33Z Insertion of Infusion Device into Superior Vena Cava, Percutaneous Approach (ICD-10-PCS; principal; 2019-10-10 08:00)
PROC: 0D968ZZ Drainage of Stomach, Via Natural or Artificial Opening Endoscopic (ICD-10-PCS; 2019-10-11)
PROC: 0DH68UZ Insertion of Feeding Device into Stomach, Via Natural or Artificial Opening Endoscopic (ICD-10-PCS; 2019-10-11)
PROC: 0FT40ZZ Resection of Gallbladder, Open Approach (ICD-10-PCS; 2019-10-13)
PROC: 0W993ZZ Drainage of Right Pleural Cavity, Percutaneous Approach (ICD-10-PCS; 2019-10-15)
DX: K81.0 Acute cholecystitis (principal); A41.9 Sepsis, unspecified organism; G93.41 Metabolic encephalopathy; J96.01 Acute respiratory failure with hypoxia; R65.21 Severe sepsis with septic shock; J69.0 Pneumonitis due to inhalation of food and vomit; R65.20 Severe sepsis without septic shock; K25.4 Chronic or unspecified gastric ulcer with hemorrhage; I48.20 Chronic atrial fibrillation, unspecified; I47.1 Supraventricular tachycardia; K56.7 Ileus, unspecified; E87.1 Hypo-osmolality and hyponatremia; E87.3 Alkalosis; R33.9 Retention of urine, unspecified; I25.10 Atherosclerotic heart disease of native coronary artery without angina pectoris; I10 Essential (primary) hypertension; K21.9 Gastro-esophageal reflux disease without esophagitis; E78.5 Hyperlipidemia, unspecified; E66.9 Obesity, unspecified; D69.6 Thrombocytopenia, unspecified; K22.4 Dyskinesia of esophagus; F10.20 Alcohol dependence, uncomplicated; Z68.30 Body mass index [BMI] 30.0-30.9, adult; J44.9 Chronic obstructive pulmonary disease, unspecified; I73.9 Peripheral vascular disease, unspecified; M48.00 Spinal stenosis, site unspecified; E87.6 Hypokalemia; E83.51 Hypocalcemia; G89.29 Other chronic pain; M85.80 Other specified disorders of bone density and structure, unspecified site; M54.9 Dorsalgia, unspecified; F17.290 Nicotine dependence, other tobacco product, uncomplicated; Z53.31 Laparoscopic surgical procedure converted to open procedure; K59.00 Constipation, unspecified; Z79.01 Long term (current) use of anticoagulants; Z79.82 Long term (current) use of aspirin; Z79.891 Long term (current) use of opiate analgesic; Z78.1 Physical restraint status; Z95.5 Presence of coronary angioplasty implant and graft; Z95.820 Peripheral vascular angioplasty status with implants and grafts; Z96.653 Presence of artificial knee joint, bilateral
CPT/HCPCS: 99222-AI; 99233-AI; 99239; A4216; C1751; C1892; C9113; J0696; J1100; J1450; J1650; J1720; J1940; J2185; J2250; J2270; J2370; J2405; J2543; J2704; J2710; J3010; J3370; J3411; J3475; J3480; J7030; J7040; J7050; J7060; J7120; Q9967

== ENCOUNTER → 2019-11-18 | Outpatient (CLI) | payer MEDICARE, OTHER ==
[~2019-11-18] MED LIST changes: +AMOXICILLIN 8751 TAB PO; +CARDIZEM HC90 MG/CAP PO; +COLACE 100100 MG/CAP PO; +FOLIC ACID 11 MG/TA1 PO; +IPRATROPIUM BROM3 M1 IH; +LASIX 20MG TABL20 MG PO; +MIRALAX PA17 GM/Dose PO; +MULTI-VITAMIN W1 TA1 PO; +NEURONTIN100 MG/CAP PO; +PRINIVIL10 MG PO; +PROTONIX 40MG T40 MG PO; +RECLAST5 MG/100 M IV; +THIAMINE 1100 MG/TAB PO; +VITRON-C PO; +ZANAFLEX CAPSULE2 MG PO
== END ==
LOC: MHCPAIN 13:03
DX: M47.817 Spondylosis without myelopathy or radiculopathy, lumbosacral region (principal); M54.16 Radiculopathy, lumbar region
CPT/HCPCS: G0463

== ENCOUNTER 2019-12-16 13:10 | Emergency (ER) | payer MEDICARE, OTHER ==
[~2019-12-16] VITALS: Ht 172.7 cm; Wt 85.9 kg
[~2019-12-16 13:10] MED LIST changes: -PRINIVIL10 MG PO; -ZANAFLEX CAPSULE2 MG PO
[2019-12-16 13:15] VITALS: TEMP 98.1
[2019-12-16] MEDS ORDERED: ZANAFLEX CAPSULE2 MG PO (13:25)
[2019-12-16] MEDS ORDERED: PRINIVIL10 MG PO (14:37)
[2019-12-16] MEDS ORDERED: MOBIC 7.5MG7.5 MG PO (14:38)
[2019-12-16] MEDS ORDERED: PRILOSEC 20MG20 MG PO (14:39)
[2019-12-16] MEDS ORDERED: PERCOCET 325 MG1 TA3 PO (14:47)
[2019-12-16 15:00] VITALS: BP 137/114; PULSE 83
== END 2019-12-16 15:15 | disposition home or self-care (01) ==
LOC: COL.ER 13:10
DX: R07.89 Other chest pain (principal); I10 Essential (primary) hypertension; I48.91 Unspecified atrial fibrillation; K21.9 Gastro-esophageal reflux disease without esophagitis; E78.5 Hyperlipidemia, unspecified; Z86.73 Personal history of transient ischemic attack (TIA), and cerebral infarction without residual deficits; Z79.82 Long term (current) use of aspirin; W19.XXXA Unspecified fall, initial encounter; Y92.009 Unspecified place in unspecified non-institutional (private) residence as the place of occurrence of the external cause
CPT/HCPCS: J3010

== ENCOUNTER → 2020-01-12 | Outpatient (CLI) | payer MEDICARE, OTHER ==
[~2020-01-12] MED LIST changes: +PRINIVIL10 MG PO; +ZANAFLEX CAPSULE2 MG PO
== END ==
LOC: MHCPAIN 15:02
DX: M54.5 Low back pain (principal); M54.16 Radiculopathy, lumbar region; M96.1 Postlaminectomy syndrome, not elsewhere classified; S22.42XD Multiple fractures of ribs, left side, subsequent encounter for fracture with routine healing; F17.210 Nicotine dependence, cigarettes, uncomplicated
CPT/HCPCS: G0463

== ENCOUNTER → 2020-04-06 | Outpatient (CLI) | payer MEDICARE, OTHER ==
[~2020-04-06] MED LIST changes: +CARDIZEM CD 30300 MG PO; +DESYREL 50MG50 MG PO; +ZOLOFT 25MG25 MG PO
== END ==
LOC: MHCPAIN 09:15
DX: M47.817 Spondylosis without myelopathy or radiculopathy, lumbosacral region (principal); M54.5 Low back pain; M53.3 Sacrococcygeal disorders, not elsewhere classified; M96.1 Postlaminectomy syndrome, not elsewhere classified; G89.29 Other chronic pain
CPT/HCPCS: G0463

== ENCOUNTER → 2020-06-01 | Outpatient (CLI) | payer MEDICARE, OTHER | LOC: MHCPAIN 13:50 | DX: M47.817 Spondylosis without myelopathy or radiculopathy, lumbosacral region (principal); M54.5 Low back pain; M53.3 Sacrococcygeal disorders, not elsewhere classified; G89.29 Other chronic pain; M54.16 Radiculopathy, lumbar region; M96.1 Postlaminectomy syndrome, not elsewhere classified | CPT/HCPCS: G0463 ==

== ENCOUNTER 2020-07-11 14:59 | Outpatient (CLI) | payer MEDICARE, OTHER ==
[~2020-07-11] VITALS: Ht 172.7 cm; Wt 76.6 kg
[~2020-07-11 14:59] MED LIST changes: -LIPITOR 80MG80 MG PO; +LIPITOR20 MG PO
[2020-07-11 15:18] VITALS: BP 133/87; PULSE 102; TEMP 98.7
[2020-07-11] MEDS ORDERED: ZESTRIL 10MG10 MG PO (15:29)
[2020-07-11] MEDS ORDERED: ZOLOFT 50MG50 MG PO (15:31)
[2020-07-11] MEDS ORDERED: RECLAST5 MG/100 M IV (15:32)
[2020-07-11] MEDS ORDERED: AMBIEN 10MG10 MG PO (15:32)
--- NOTE | 2020-07-11 16:20 | NUR ---
IV DC'd with catheter intact, bleeding at site controlled. Pt assisted out to car along with , following infusion.
== END 2020-07-11 16:20 | disposition home or self-care (01) ==
LOC: EUO 14:59
DX: M81.0 Age-related osteoporosis without current pathological fracture (principal)
CPT/HCPCS: J3489

== ENCOUNTER → 2020-08-30 | Outpatient (CLI) | payer MEDICARE, OTHER ==
[~2020-08-30] MED LIST changes: +AMBIEN 10MG10 MG PO; +ZESTRIL 10MG10 MG PO; +ZOLOFT 50MG50 MG PO
== END ==
LOC: MHCPAIN 14:13
DX: M47.817 Spondylosis without myelopathy or radiculopathy, lumbosacral region (principal); M54.5 Low back pain; M53.3 Sacrococcygeal disorders, not elsewhere classified; G89.29 Other chronic pain; M54.16 Radiculopathy, lumbar region
CPT/HCPCS: G0463

== ENCOUNTER → 2020-11-29 | Outpatient (CLI) | payer MEDICARE, OTHER | LOC: MHCPAIN 14:05 | DX: M47.816 Spondylosis without myelopathy or radiculopathy, lumbar region (principal); M96.1 Postlaminectomy syndrome, not elsewhere classified; M79.2 Neuralgia and neuritis, unspecified; M53.3 Sacrococcygeal disorders, not elsewhere classified; G89.29 Other chronic pain | CPT/HCPCS: G0463 ==

== ENCOUNTER → 2021-02-22 | Outpatient (CLI) | payer MEDICARE, OTHER ==
[~2021-02-22] MED LIST changes: +AMBIEN 5MG TABLE5 MG PO; +K-TAB10 PO; +ONE-A-DAY ESSE1 EACH PO; +TYLENOL 325MG325 MG PO
== END ==
LOC: MHCPAIN 13:51
DX: M47.816 Spondylosis without myelopathy or radiculopathy, lumbar region (principal); M53.3 Sacrococcygeal disorders, not elsewhere classified; M96.1 Postlaminectomy syndrome, not elsewhere classified; G89.29 Other chronic pain
CPT/HCPCS: G0463

== ENCOUNTER 2021-04-24 16:53 | Emergency (ER) | payer MEDICARE, OTHER ==
[~2021-04-24] VITALS: Ht 172.7 cm; Wt 85.9 kg
[~2021-04-24 16:53] MED LIST changes: -AMBIEN 5MG TABLE5 MG PO; -K-TAB10 PO; -ONE-A-DAY ESSE1 EACH PO; -TYLENOL 325MG325 MG PO
[2021-04-24 16:56] VITALS: TEMP 98.4
[2021-04-24 17:26] LABS: BASO # 0.1 (0.0-0.2); BASO % 0.7 % (0.0-2.0); EOS # 0.1 (0.0-0.7); EOS % 0.7 % (0-4.0); GRAN # 5.1 (1.4-6.5); GRAN % 72.4 % (42.2-75.2); HEMATOCRIT 38.5 % (42.0-52.0); HEMOGLOBIN 13.5 g/dl (13.5-18.0); LYMPH # 1.2 (1.2-3.4); LYMPH % 16.9 % (20.0-51.0); MEAN CELL VOLUME 98 fl (80.0-100.0); MEAN CORPUSCULAR HEMOGLOBIN 34 pg (27.0-31.0); MEAN CORPUSCULAR HGB CONC 35 g/dl (33.0-37.0); MEAN PLATELET VOLUME 10.6 fl (7.4-10.4); MONO # 0.6 (0.1-0.6); MONO % 8.9 % (1.7-9.3); PLATELET COUNT 285 K/mm3 (130-400); RED BLOOD COUNT 3.93 M/mm3 (4.20-5.60); REDCELL DISTRIBUTION WIDTH-CV 12.4 % (11.5-14.5)
[2021-04-24 17:32] LABS: INR 1.3 (0.8-3.0); PROTHROMBIN TIME 14.4 SECONDS (9.7-12.8)
[2021-04-24 17:35] LABS: PARTIAL THROMBOPLASTIN TIME 34.8 SECONDS (26.0-37.0)
[2021-04-24 17:41] LABS: ALANINE AMINOTRANSFERASE 15 U/L (4-49); ALKALINE PHOSPHATASE 167 U/L (50-136); ANION GAP 4 mmol/L (7-16); AST,SGOT 39 U/L (15-37); BILIRUBIN,TOTAL 0.9 mg/dL (0.0-1.0); BLOOD UREA NITROGEN 13 mg/dL (9-20); CALCIUM 7.3 mg/dL (8.4-10.2); CARBON DIOXIDE 26 mmol/L (22-30); CHLORIDE 100 mmol/L (98-107); CREATININE, serum 0.78 (0.66-1.25); GLUCOSE 79 mg/dL (74-106); SODIUM 130 mmol/L (137-145); TOTAL PROTEIN 6.2 gm/dL (6.4-8.2)
[2021-04-24 17:43] LABS: ALCOHOL(ethanol),MEDICAL < 10 mg/dL
[2021-04-24 18:05] LABS: TROPONIN-I < 0.012 ng/mL (0.000-0.035)
[2021-04-24] MEDS ORDERED: PERCOCET 325 MG1 TAB PO (18:30)
[2021-04-24 19:06] VITALS: BP 145/89; PULSE 100
== END 2021-04-24 19:07 | disposition home or self-care (01) ==
LOC: COL.ER 16:53
PROVIDERS: Family Medicine
DX: S22.089A Unspecified fracture of T11-T12 vertebra, initial encounter for closed fracture (principal); M48.061 Spinal stenosis, lumbar region without neurogenic claudication; F17.290 Nicotine dependence, other tobacco product, uncomplicated; X58.XXXA Exposure to other specified factors, initial encounter
CPT/HCPCS: J1170; J1200; J1885

== ENCOUNTER 2021-04-30 17:12 | Observation (INO) | payer MEDICARE, OTHER ==
[~2021-04-30] VITALS: Ht 172.7 cm; Wt 88.0 kg
[2021-04-30 18:11] LABS: BASO % 0.4 % (0.0-2.0); EOS % 0.2 % (0-4.0); GRAN # 6.2 (1.4-6.5); GRAN % 77.1 % (42.2-75.2); HEMOGLOBIN 10.8 g/dl (13.5-18.0); LYMPH % 12.8 % (20.0-51.0); MEAN CELL VOLUME 100 fl (80.0-100.0); MEAN CORPUSCULAR HEMOGLOBIN 34 pg (27.0-31.0); MEAN CORPUSCULAR HGB CONC 34 g/dl (33.0-37.0); MEAN PLATELET VOLUME 10.4 fl (7.4-10.4); MONO # 0.8 (0.1-0.6); MONO % 9.3 % (1.7-9.3); PLATELET COUNT 199 K/mm3 (130-400); RED BLOOD COUNT 3.15 M/mm3 (4.20-5.60); REDCELL DISTRIBUTION WIDTH-CV 13.1 % (11.5-14.5)
[2021-04-30 18:20] LABS: HEMATOCRIT 31.5 % (42.0-52.0)
[2021-04-30 18:24] LABS: ALANINE AMINOTRANSFERASE 15 U/L (4-49); ALBUMIN 2.2 gm/dL (3.5-5.0); ALKALINE PHOSPHATASE 131 U/L (50-136); ANION GAP 5 mmol/L (7-16); AST,SGOT 36 U/L (15-37); BILIRUBIN,TOTAL 0.3 mg/dL (0.0-1.0); BLOOD UREA NITROGEN 18 mg/dL (9-20); C-REACTIVE PROTEIN 8.6 mg/dL (0.0-0.9); CALCIUM 7.6 mg/dL (8.4-10.2); CARBON DIOXIDE 24 mmol/L (22-30); CHLORIDE 105 mmol/L (98-107); CREATININE, serum 0.71 (0.66-1.25); GLUCOSE 120 mg/dL (74-106); INR 1.1 (0.8-3.0); LIPASE 27 U/L (23-300); SODIUM 133 mmol/L (137-145)
[2021-04-30 18:25] LABS: ALCOHOL(ethanol),MEDICAL < 10 mg/dL; POTASSIUM 2.4 mmol/L (3.4-5.0)
[2021-04-30 18:46] LABS: TROPONIN-I 0.015 ng/mL (0.000-0.035)
[2021-04-30 18:53] LABS: MAGNESIUM 1.2 mg/dL (1.6-2.3)
[2021-04-30 22:35] LABS: BASO % 0.4 % (0.0-2.0); EOS # 0.1 (0.0-0.7); EOS % 0.7 % (0-4.0); GRAN # 5.2 (1.4-6.5); GRAN % 70.8 % (42.2-75.2); LYMPH # 1.4 (1.2-3.4); LYMPH % 18.6 % (20.0-51.0); MEAN CELL VOLUME 99 fl (80.0-100.0); MEAN CORPUSCULAR HEMOGLOBIN 34 pg (27.0-31.0); MEAN CORPUSCULAR HGB CONC 35 g/dl (33.0-37.0); MEAN PLATELET VOLUME 10.9 fl (7.4-10.4); MONO # 0.7 (0.1-0.6); MONO % 9.2 % (1.7-9.3); PLATELET COUNT 193 K/mm3 (130-400); REDCELL DISTRIBUTION WIDTH-CV 12.9 % (11.5-14.5)
[2021-04-30 22:39] LABS: HEMATOCRIT 34.5 % (42.0-52.0)
--- NOTE | 2021-05-01 02:27 | NUR ---
Patient arrived to medical floor via hospital bed from ER around 00: 45 am. Patient alert and oriented to self and place only. Patient intermittently gets confused, patient yelled out loud several times "Turn off shower". Patient becomes agitated and being very rude to all the staff and yelling at staff to get out of the room. Patient refused VS check and refused blood draw. Patient yelled out, "Enough, I have already had my blood draw downstairs. Don't come again in the risk control manager. Come at 7 O'clock." Patient yelled at this staff several times to get out of the room. Oriented patient to the room. Call light within reach. Bed-alarms on. Will continue to monitor.
[2021-05-01] MEDS ORDERED: AMBIEN 5MG TABLE5 MG PO (03:55)
[2021-05-01] MEDS ORDERED: ONE-A-DAY ESSE1 EACH PO (03:56)
[2021-05-01 04:39] LABS: PHOSPHOROUS 3.5 mg/dL (2.5-4.5)
[2021-05-01 05:00] VITALS: BP 152/78; PULSE 97; TEMP 97.8
[2021-05-01 05:22] LABS: TSH w REFLEX 0.563 uIU/mL (0.465-4.680)
[2021-05-01 05:57] LABS: COLLECTION METHOD CLEAN CATCH
[2021-05-01 05:59] LABS: BASO % 0.6 % (0.0-2.0); EOS # 0.1 (0.0-0.7); EOS % 1.4 % (0-4.0); GRAN # 4.3 (1.4-6.5); HEMOGLOBIN 11.7 g/dl (13.5-18.0); LYMPH # 1.3 (1.2-3.4); LYMPH % 20.4 % (20.0-51.0); MEAN CELL VOLUME 98 fl (80.0-100.0); MEAN CORPUSCULAR HEMOGLOBIN 35 pg (27.0-31.0); MEAN CORPUSCULAR HGB CONC 35 g/dl (33.0-37.0); MEAN PLATELET VOLUME 10.9 fl (7.4-10.4); MONO # 0.7 (0.1-0.6); MONO % 10.1 % (1.7-9.3); PLATELET COUNT 208 K/mm3 (130-400); RED BLOOD COUNT 3.39 M/mm3 (4.20-5.60); REDCELL DISTRIBUTION WIDTH-CV 12.8 % (11.5-14.5)
[2021-05-01 06:05] LABS: HEMATOCRIT 33.2 % (42.0-52.0)
[2021-05-01 06:14] LABS: CALCIUM 7.9 mg/dL (8.4-10.2); CREATININE, serum 0.55 (0.66-1.25)
[2021-05-01 06:15] LABS: PH 6 (5-8); SQUAMOUS EPITHELIAL None Seen /hpf; URINE APPEARANCE Clear; URINE BACTERIA None Seen /hpf; URINE BILIRUBIN Negative (NEGATIVE); URINE BLOOD Negative (NEGATIVE); URINE COLOR Straw; URINE GLUCOSE Negative (NEGATIVE); URINE KETONE Negative (NEGATIVE); URINE LEUKOCYTE ESTERASE Negative (NEGATIVE); URINE NITRATE Negative (NEGATIVE); URINE PROTEIN(semi-quant) Negative (NEGATIVE); URINE RBC 0-2 /hpf; URINE UROBILINOGEN Negative (NEGATIVE)
[2021-05-01 06:19] LABS: POTASSIUM 2.8 mmol/L (3.4-5.0)
[2021-05-01 06:27] LABS: TRICYCLIC ANTIDEPRESS URINE NEGATIVE
[2021-05-01 07:29] VITALS: BP 138/68; PULSE 116; TEMP 97.6
[2021-05-01 11:17] VITALS: BP 125/72; PULSE 102; TEMP 97.7
--- NOTE | 2021-05-01 13:32 | NUR ---
Tooth Polisher attended clinical rounds with the team and patient is wanting to leave the hospital, but eventually agrees to stay with encouragement from his , [place] (ph#[phone]). Hospitalist advised the plan will be to discharge patient tomorrow early as long as his labs are stable so patient can make it to his appointment with his primary care physician, Dr. Watts tomorrow. Patient lives in [place] with his and obtains medications from [facility] with no difficulties. Patient has a wheelchair and walker at home and France reports that a wheelchair ramp was delivered to their home today. France advised that patient uses both the wheelchair and walker however he spends most of his time either in the wheelchair or in bed watching TV. Patient does require some assistance with ADLS which [place] provides. Patient plans to return home upon discharge. DESHAWN discussed Home Health services with [place] who advised they have had HH in the past, however patient has not finished out his therapy course with HH in the past. France will discuss HH with patient to see if he would be agreeable. DESHAWN provided [place] with Medicare.gov list of HH agencies that serve [place]. [place] advised that at tomorrow's appointment with patient's primary care physician, she plans to discuss options for arrangements for fdc care. DESHAWN contacted LUZ WrightCM at [facility] to provide update. Adriana to round here at the hospital tomorrow. Discharge Plan: Home with Home Health if patient is agreeable.
[2021-05-01 16:28] VITALS: BP 110/67; PULSE 97; TEMP 97.6
--- NOTE | 2021-05-01 19:00 | NUR ---
Patient sitting up in bed and eating dinner at this time. No acute distress noted. Call light within reach.
--- NOTE | 2021-05-01 19:05 | NUR ---
Pt had uneventful day. Was upset that he could not go home today. Continued to report pain to RLE, PRN pain medication administered, K pad provided. Intermittently confused. Up to the chair for a short time today. No needs at this time. Fall precautions in place.
[2021-05-01 21:18] VITALS: BP 92/57; PULSE 76; TEMP 97.6
--- NOTE | 2021-05-01 23:05 | NUR ---
Patient lying in bed upon enter the room. Patient's spouse in the room. Shift assessment completed. Patient alert and oriented. Patient reports pain to his right leg. PRN Tylenol given for pain. Patient denies SOB, N/V, headache, dizziness, or diarrhea. All scheduled meds given per JAN. Call light within reach. Bed alarms on. Will continue to monitor.
[2021-05-02 00:06] VITALS: BP 120/76; PULSE 67; TEMP 97.6
[2021-05-02 03:16] VITALS: BP 121/75; PULSE 79; TEMP 97.5
[2021-05-02 08:01] VITALS: BP 130/81; PULSE 107; TEMP 98.3
[2021-05-02] MEDS ORDERED: MAG-OX 400400 MG/TAB PO (09:13)
[2021-05-02] MEDS ORDERED: TYLENOL 325MG325 MG PO (09:13)
--- NOTE | 2021-05-02 09:52 | NUR ---
Assessment completed, alert/oriented, vital signs stable, repoerst pain to BLE is improved, plans for home discharge today
--- NOTE | 2021-05-02 10:29 | NUR ---
Discharging patient home, instructions discussed with him and his , IV and tele removed, instructed to follow up as scheduled, discussed meds changes and new meds/ scripts sent to pharmacy for him, CORRESPONDENCE SPECIALIST escorting him out by wheelchair
--- NOTE | 2021-05-02 14:36 | NUR ---
Communications Department Chair attended clinical rounds with the team. Also present Adriana PETE from [facility]. The patient has declined home health. After rounds, DESHAWN and Adriana met with the patient to discuss follow up appointment with PCP. The patient discharged home today, 05/02 with spouse. There are no additional needs.
== END 2021-05-02 10:34 | disposition home or self-care (01) ==
LOC: COL.ER 17:12 → MEDICAL 21:55
PROVIDERS: Emergency Medicine; Nurse Practitioner Family
DX: I95.9 Hypotension, unspecified (principal); T50.901A Poisoning by unspecified drugs, medicaments and biological substances, accidental (unintentional), initial encounter; G93.40 Encephalopathy, unspecified; R53.1 Weakness; R53.81 Other malaise; Z91.81 History of falling; E87.6 Hypokalemia; E83.42 Hypomagnesemia; E87.1 Hypo-osmolality and hyponatremia; E78.5 Hyperlipidemia, unspecified; I25.10 Atherosclerotic heart disease of native coronary artery without angina pectoris; I48.91 Unspecified atrial fibrillation; R94.31 Abnormal electrocardiogram [ECG] [EKG]; I50.30 Unspecified diastolic (congestive) heart failure; I73.9 Peripheral vascular disease, unspecified; K27.9 Peptic ulcer, site unspecified, unspecified as acute or chronic, without hemorrhage or perforation; K44.9 Diaphragmatic hernia without obstruction or gangrene; I27.21 Secondary pulmonary arterial hypertension; I08.1 Rheumatic disorders of both mitral and tricuspid valves; K21.9 Gastro-esophageal reflux disease without esophagitis; G89.29 Other chronic pain; M54.9 Dorsalgia, unspecified; M81.0 Age-related osteoporosis without current pathological fracture; F17.290 Nicotine dependence, other tobacco product, uncomplicated; D64.9 Anemia, unspecified; Z79.01 Long term (current) use of anticoagulants; Z72.89 Other problems related to lifestyle; Z95.828 Presence of other vascular implants and grafts; Z79.83 Long term (current) use of bisphosphonates; Z95.818 Presence of other cardiac implants and grafts; Z79.899 Other long term (current) drug therapy
CPT/HCPCS: G0378; J2310; J2543; J3475; J3480; J7030; Q9967

== ENCOUNTER → 2021-05-09 | Outpatient (CLI) | payer MEDICARE, OTHER ==
[~2021-05-09] MED LIST changes: +AMBIEN 5MG TABLE5 MG PO; +K-TAB10 PO; +ONE-A-DAY ESSE1 EACH PO; +TYLENOL 325MG325 MG PO
== END ==
LOC: MHCPAIN 14:59
DX: M47.816 Spondylosis without myelopathy or radiculopathy, lumbar region (principal); M96.1 Postlaminectomy syndrome, not elsewhere classified; M54.5 Low back pain; M53.3 Sacrococcygeal disorders, not elsewhere classified
CPT/HCPCS: G0463

== ENCOUNTER 2021-07-19 13:46 | Outpatient (CLI) | payer MEDICARE, OTHER ==
[~2021-07-19] VITALS: Ht 172.7 cm; Wt 85.0 kg
[~2021-07-19 13:46] MED LIST changes: -K-TAB10 PO
[2021-07-19] MEDS ORDERED: NORCO 325 MG-51 TAB PO (14:04)
[2021-07-19] MEDS ORDERED: ZANAFLEX CAPSULE2 MG PO (14:08)
[2021-07-19 14:30] VITALS: BP 72/52; PULSE 87; TEMP 98.5
== END 2021-07-19 15:10 | disposition home or self-care (01) ==
LOC: EUO 13:46
DX: M81.0 Age-related osteoporosis without current pathological fracture (principal)
CPT/HCPCS: J3489

== ENCOUNTER → 2021-08-09 | Outpatient (CLI) | payer MEDICARE, OTHER ==
[~2021-08-09] MED LIST changes: +K-TAB10 PO
== END ==
LOC: MHCPAIN 14:59
DX: M47.816 Spondylosis without myelopathy or radiculopathy, lumbar region (principal); M54.16 Radiculopathy, lumbar region; M96.1 Postlaminectomy syndrome, not elsewhere classified; G89.29 Other chronic pain
CPT/HCPCS: G0463

== ENCOUNTER 2021-08-21 10:00 | Inpatient (IN) | payer MEDICARE, OTHER ==
[~2021-08-21] VITALS: Ht 172.7 cm; Wt 85.9 kg
[~2021-08-21 10:00] MED LIST changes: -K-TAB10 PO
--- NOTE | 2021-08-21 10:26 | NUR ---
family caseworker contacted by the DESHAWN at [facility]. States patient's called her this morning stating that she is unable to continue caring for her . States that she is looking at the possibility of HH, or placement at [facility]. VALENCIA Charlton notified.
[2021-08-21 10:38] LABS: BASO % 0.5 % (0.0-2.0); EOS # 0.2 K/mm3 (0.0-0.7); EOS % 2.1 % (0-4.0); GRAN # 5.3 K/mm3 (1.4-6.5); GRAN % 69.1 % (42.2-75.2); HEMATOCRIT 40.6 % (42.0-52.0); HEMOGLOBIN 13.8 g/dl (13.5-18.0); LYMPH # 1.4 K/mm3 (1.2-3.4); LYMPH % 18.6 % (20.0-51.0); MEAN CELL VOLUME 98 fl (80.0-100.0); MEAN CORPUSCULAR HEMOGLOBIN 33 pg (27.0-31.0); MEAN CORPUSCULAR HGB CONC 34 g/dl (33.0-37.0); MEAN PLATELET VOLUME 10.2 fl (7.4-10.4); MONO # 0.7 K/mm3 (0.1-0.6); MONO % 9.4 % (1.7-9.3); PLATELET COUNT 268 K/mm3 (130-400); RED BLOOD COUNT 4.16 M/mm3 (4.20-5.60)
[2021-08-21 10:57] LABS: INR 1.4 (0.8-3.0); PROTHROMBIN TIME 15.5 SECONDS (9.7-12.8)
[2021-08-21 11:00] LABS: ALANINE AMINOTRANSFERASE 9 U/L (0-55); ALBUMIN 1.8 gm/dL (3.4-4.8); ALKALINE PHOSPHATASE 144 U/L (0-750); ANION GAP 7 mmol/L (7-16); AST,SGOT 19 U/L (5-34); BILIRUBIN,TOTAL 0.4 mg/dL (0.2-1.2); BLOOD UREA NITROGEN 9 mg/dL (8-26); CARBON DIOXIDE 26 mmol/L (23-31); CHLORIDE 99 mmol/L (98-107); GLUCOSE 90 mg/dL (70-99); MAGNESIUM 1.4 mg/dL (1.6-2.6); POTASSIUM 3.8 mmol/L (3.5-4.5); SODIUM 132 mmol/L (136-145); TOTAL PROTEIN 5.1 gm/dL (6.2-8.1)
[2021-08-21 11:03] LABS: LIPASE < 4 U/L (8-78)
[2021-08-21 11:13] LABS: STOOL FOR OCCULT BLOOD POSITIVE (NEGATIVE)
[2021-08-21 11:20] LABS: TSH w REFLEX 2.077 uIU/mL (0.350-4.940)
[2021-08-21 11:24] LABS: TROPONIN-I < 0.010 ng/mL (0.00-0.033)
--- NOTE | 2021-08-21 11:42 | NUR ---
Content Development Manager notified of patient in ER and met with patient's , [place], who was at bedside ([place]: [phone]). and patient reside in [place] where patient has a number of DME's to include walker, cane, shower chair and wheelchair. Patient relies heavily on wheelchair or to ambulate. reports that patient has had a number of falls and does not have good hygiene "because he doesn't feel safe to get out of his wheelchair". She states that he has anger towards her for mentioning inpatient rehab. He recently had [facility] but he "fired" them because he didn't believe it was helping him. reports that patient spends a lot of time sitting in the garage smoking cigars and drinking. She further states that she has trouble getting him up after a fall and has had to seek help from neighbors a number of times in the past. states patient is non-compliant and she was ready to purchase a lift to assist. told this worker that she was getting ready to go visit her mother who is in a snf in [facility]. that she has not been able to see since COVID began. SW provided the above info to Dr. Aguayo and spoke to patient about the importance of getting stronger while working with therapy.
[2021-08-21 12:40] LABS: COLLECTION METHOD CLEAN CATCH
[2021-08-21 12:45] LABS: PH 6 (5-8); SQUAMOUS EPITHELIAL None Seen /hpf; URINE APPEARANCE Clear; URINE BACTERIA None Seen /hpf; URINE BILIRUBIN Negative (NEGATIVE); URINE BLOOD Negative (NEGATIVE); URINE COLOR Yellow; URINE GLUCOSE Negative (NEGATIVE); URINE KETONE Negative (NEGATIVE); URINE LEUKOCYTE ESTERASE Negative (NEGATIVE); URINE NITRATE Negative (NEGATIVE); URINE PROTEIN(semi-quant) Negative (NEGATIVE); URINE RBC 0-2 /hpf; URINE UROBILINOGEN Negative (NEGATIVE)
[2021-08-21] MEDS ORDERED: PRINIVIL10 MG PO (14:04)
[2021-08-21] MEDS ORDERED: PERCOCET 325 MG1 TA3 PO (14:12)
[2021-08-21] MEDS ORDERED: AMBIEN 5MG TABLE5 MG PO (14:13)
[2021-08-21 16:21] VITALS: BP 101/53; PULSE 68; TEMP 97.6
--- NOTE | 2021-08-21 16:39 | NUR ---
PT ABLE TO PASS HARD STOOL, AFTER THIS LARGE AMOUNT OF LIQUID STOOL WAS PASSED. PERICARE PROVIDED, MEDICATIONS FOR PAIN GIVEN, MAG HUNG PER ORDERS. NO OTHER NEEDS
--- NOTE | 2021-08-21 17:43 | NUR ---
PT ARRIVED ON FLOOR FROM ED. PT TRANSFERRED TO ROOM BED AND ADJUSTED. PT STARTED MOANING FOR PAIN MEDICATIONS STATING "I HAVE BEEN ASKING FOR PAIN MEDICATIONS FOR THE PAST 30 MINUTES" PT ANSWERED QUESTIONS FOR ADMISSION DUE TO PT HEARING AIDS NEEDING CHARGED AND UNWILLING TO ANSWER QUESTIONS. PT STARTED COMPLAINING ABOUT PAIN FROM PASSING STOOL. AFTER PASSING HARD/LIQUID STOOL, PT RECEIVED PAIN MEDICATION AND HAS SINCE QUIETED DOWN, HAS ASKED HOW OFTEN HE CAN GET HIS PAIN MEDICATION ONCE. PT RESTING QUIETLY IN BED, CALL LIGHT IN REACH, NO FLUIDS INFUSING, NO ETOH PROTOCOLS, WAITING ON POSSIBLE PLACEMENT FOR SHELTER FOR CARE.
[2021-08-21 19:08] VITALS: BP 126/53; PULSE 100; TEMP 97.8
--- NOTE | 2021-08-21 21:48 | NUR ---
Patient A/Ox2. Patient requesting pain meds upon shift start. Patient reports chronic pain to his back and lower legs 05/20. PRN Oxycodone given at 20:14 pm. All scheduled meds given at this time. Patient using urinal in bed. No diarrhea noted at this time. VS stable. Ice water provided per patient request. Patient using call light frequently and able to make his needs known. Call light in reach. Bed alarms on. Will continue to monitor.
[2021-08-21 23:04] VITALS: BP 87/64; PULSE 85; TEMP 97.7
[2021-08-22 03:05] VITALS: BP 127/66; PULSE 60; TEMP 97.9
--- NOTE | 2021-08-22 06:09 | NUR ---
Patient had no diarrhea throughout the night. Patient using call light frequently to ask for pain meds. PRN pain med given Q 4hr for pain. BP 87/64 around 23:00 last night. Called CHELSEY Stapleton and updated. NS 500ml bolus given and LR is currently running at 100ml/hr per JAN. BP 127/66 around 4 am this morning. Call light in reach.
[2021-08-22 08:00] VITALS: BP 81/54; PULSE 53; TEMP 98.2
[2021-08-22 09:35] LABS: BASO # 0.1 K/mm3 (0.0-0.2); BASO % 0.6 % (0.0-2.0); EOS % 0.4 % (0-4.0); GRAN # 7.5 K/mm3 (1.4-6.5); GRAN % 80.4 % (42.2-75.2); HEMATOCRIT 38.5 % (42.0-52.0); HEMOGLOBIN 13.4 g/dl (13.5-18.0); LYMPH % 10.4 % (20.0-51.0); MEAN CELL VOLUME 96 fl (80.0-100.0); MEAN CORPUSCULAR HEMOGLOBIN 33 pg (27.0-31.0); MEAN CORPUSCULAR HGB CONC 35 g/dl (33.0-37.0); MEAN PLATELET VOLUME 10.4 fl (7.4-10.4); MONO # 0.7 K/mm3 (0.1-0.6); MONO % 7.8 % (1.7-9.3); PLATELET COUNT 292 K/mm3 (130-400); RED BLOOD COUNT 4.03 M/mm3 (4.20-5.60); REDCELL DISTRIBUTION WIDTH-CV 13.9 % (11.5-14.5)
--- NOTE | 2021-08-22 11:25 | NUR ---
I did go into Mr Almodovar's room to speak with him and his , [place]. He asked me to remove my mask and state my purpose. I did not remove my mask with explanation and after a brief introduction, he told me he was not dying and I needed to leave. His did stop by my office to talk with me later. I explained that palliative care is about working for a balance between treatment and comfort for people with a life limiting illness and gave her several examples. She is aware that her 's medical situation is quite compromised and that if he does not work with therapy and take his prescribed medications, that he will likely continue to decline and this could lead to his over time. Today when talking with Dr Helton he did agree to do therapy and take his prescribed medications. Per his he may do this for a few days but typically will stop and refuse further treatment. She reports that she cannot manage him at home now in his current state and that he must get stronger to be able to ambulate and manage his bathroon care or he will not be able to return home. She is hoping to leave tomorrow to go visit her 93 yo mother out of state. Sabine, social service coordinator is aware of this and has advised those referral recipients of this. Support provided to his as she continues to deal with this difficult situation.
[2021-08-22 11:29] VITALS: BP 1116/92; PULSE 74
[2021-08-22 11:56] VITALS: BP 116/92; PULSE 79; TEMP 98.6
[2021-08-22 13:08] LABS: CALCIUM 8.1 mg/dL (8.4-10.2); CREATININE, serum 0.6 mg/dL (0.72-1.25); POTASSIUM 3.4 mmol/L (3.4-5.0)
[2021-08-22 16:46] VITALS: BP 120/65; PULSE 75; TEMP 98.5
[2021-08-22 19:47] VITALS: BP 125/80; PULSE 95; TEMP 98.5
--- NOTE | 2021-08-22 22:16 | NUR ---
Patient A/Ox3. Patient reports moderate pain to his back and legs. PRN pain med given per MAR. IVF infusing well to left forearm IV site. Patient states he hasn't sleep much last night and hold VS check at midnight if he is asleep at that time. Call light in reach. Will continue to monitor.
[2021-08-23 05:08] VITALS: BP 171/93; PULSE 107; TEMP 98.4
--- NOTE | 2021-08-23 06:19 | NUR ---
Patient's BP elevated to 171/93 around 5am this morning. Patient denies chest pain, headache, dizziness, or N/V. CHELSEY Stapleton updated. Per CHELSEY Stapleton, hold IVF for now. PRN Percocet given at this time for c/o pain. Call light in reach.
[2021-08-23 07:18] VITALS: BP 158/98; PULSE 106; TEMP 98.6
--- NOTE | 2021-08-23 08:30 | NUR ---
Assessment complete. Pt resting in bed, A&O x 3, reports pain in back and legs 7 out of 10. Saline lock IV's to bilat forearms. Physical assessment unremarkable. No further needs reported. Call light in reach.
[2021-08-23 12:23] VITALS: BP 127/90; PULSE 99; TEMP 98.5
[2021-08-23 16:47] VITALS: BP 151/89; PULSE 99; TEMP 98
[2021-08-23 20:00] VITALS: BP 147/76; PULSE 77; TEMP 98.5
[2021-08-23 23:38] VITALS: BP 133/75; PULSE 102; TEMP 98.2
[2021-08-24 03:25] VITALS: BP 145/84; PULSE 78; TEMP 98.3
--- NOTE | 2021-08-24 05:44 | NUR ---
Patient has been resting in bed with eyes closed. Has used bedside urinal. Voices no questions, needs, or concerns this shift. Has denied pain and discomfort when asked. Call light within reach.
[2021-08-24 07:08] LABS: BASO # 0.1 K/mm3 (0.0-0.2); BASO % 0.7 % (0.0-2.0); EOS # 0.1 K/mm3 (0.0-0.7); GRAN # 4.5 K/mm3 (1.4-6.5); HEMATOCRIT 41.9 % (42.0-52.0); HEMOGLOBIN 14.3 g/dl (13.5-18.0); LYMPH # 1.5 K/mm3 (1.2-3.4); MEAN CELL VOLUME 97 fl (80.0-100.0); MEAN CORPUSCULAR HEMOGLOBIN 33 pg (27.0-31.0); MEAN CORPUSCULAR HGB CONC 34 g/dl (33.0-37.0); MEAN PLATELET VOLUME 9.5 fl (7.4-10.4); MONO # 0.6 K/mm3 (0.1-0.6); MONO % 8.7 % (1.7-9.3); PLATELET COUNT 276 K/mm3 (130-400); RED BLOOD COUNT 4.31 M/mm3 (4.20-5.60); REDCELL DISTRIBUTION WIDTH-CV 14.3 % (11.5-14.5)
[2021-08-24 07:16] VITALS: BP 167/90; PULSE 78; TEMP 98.1
[2021-08-24 07:25] LABS: CALCIUM 7.4 mg/dL (8.4-10.2); CREATININE, serum 0.63 mg/dL (0.72-1.25); POTASSIUM 3.5 mmol/L (3.5-4.5)
--- NOTE | 2021-08-24 09:24 | NUR ---
PT HAS COMPLAINT OF HAVING A DIFFICULT TIME PASSING A STOOL. WHEN HE IS "TRYING", HE SCREAMS OUT. DISCUSSED THE OPTION OF A STOOL SOFTNER WITH HIM, WILL TALK TO PROVIDER ABOUT IT.
[2021-08-24] MEDS ORDERED: LASIX 20MG TABL20 MG PO (10:00)
[2021-08-24] MEDS ORDERED: COLACE 100100 MG/CAP PO (10:00)
--- NOTE | 2021-08-24 11:34 | NUR ---
(Late Entry) On 08/22/21 DESHAWN followed up with patient following rounds to discuss discharge plan. Patient is agreeable to have referrals sent to local SNFs but prefers [facility]. DESHAWN faxed referrals to [facility] and [facility]. [facility] and [facility] declined. [facility] advised they would accept patient for a skilled stay. DESHAWN updated patient's , [place] who is in agreement.
--- NOTE | 2021-08-24 11:37 | NUR ---
Bottle Selector attended clinical rounds with the team. Patient is ready for discharge once [facility] can accept. DESHAWN contacted Jacqui at [facility] who advised they can accept patient tomorrow. DESHAWN updated Hospitalist. DESHAWN faxed clinical updates to [facility]. Discharge Plan: [facility]
[2021-08-24 12:37] VITALS: BP 142/80; PULSE 77; TEMP 98.2
--- NOTE | 2021-08-24 13:32 | NUR ---
PT IS COMFORTABLE IN BED AT THIS TIME. ASKED IF HE COULD GO OUTSIDE TO SMOKE A CIGAR. THIS RN RE-EDUCATED THE PATIENT ON THE SMOKING POLICY.
[2021-08-24 16:04] VITALS: BP 139/96; PULSE 52; TEMP 98
[2021-08-24 20:06] VITALS: BP 139/82; PULSE 95; TEMP 98.1
--- NOTE | 2021-08-24 21:42 | NUR ---
Patient assessed. Reported pain to right leg, given PRN Percocet per orders. Denies SOB and dyspnea. LS CTA in upper lobes, diminished in lower. Repsirations even and unlabored. Bilateral forearm INTs. HRR. Capillary refill less than 3 seconds. Non-tenting skin turgor. BSAx4. Abdomen soft and non-tender. Edema to BUE. Voices no questions, needs, or concerns at this time. Resting in bed with call light within reach.
[2021-08-25 03:13] VITALS: BP 144/78; PULSE 59; TEMP 97.9
--- NOTE | 2021-08-25 05:33 | NUR ---
Patient given PRN Percocet this morning for pain to right leg. Voices no further questions, needs, or concerns at this time. Resting in bed with call light within reach.
[2021-08-25 07:03] VITALS: BP 155/79; PULSE 74; TEMP 99
[2021-08-25 07:16] LABS: BASO # 0.1 K/mm3 (0.0-0.2); BASO % 0.8 % (0.0-2.0); EOS # 0.2 K/mm3 (0.0-0.7); EOS % 2.3 % (0-4.0); GRAN % 60.7 % (42.2-75.2); HEMATOCRIT 41.3 % (42.0-52.0); HEMOGLOBIN 13.9 g/dl (13.5-18.0); LYMPH # 1.7 K/mm3 (1.2-3.4); LYMPH % 26.1 % (20.0-51.0); MEAN CELL VOLUME 98 fl (80.0-100.0); MEAN CORPUSCULAR HEMOGLOBIN 33 pg (27.0-31.0); MEAN CORPUSCULAR HGB CONC 34 g/dl (33.0-37.0); MEAN PLATELET VOLUME 10.2 fl (7.4-10.4); MONO # 0.6 K/mm3 (0.1-0.6); MONO % 9.5 % (1.7-9.3); PLATELET COUNT 291 K/mm3 (130-400); REDCELL DISTRIBUTION WIDTH-CV 14.5 % (11.5-14.5)
[2021-08-25 07:32] LABS: CALCIUM 7.7 mg/dL (8.4-10.2); CREATININE, serum 0.55 mg/dL (0.72-1.25); POTASSIUM 3.4 mmol/L (3.5-4.5)
--- NOTE | 2021-08-25 08:27 | NUR ---
Shift assessment preformed. Medications will be given by student nurse under the supervision of liscensed nurse. Patient C/O 4/10 burning pain in his right leg and lower back. Pain medication will be given as soon as it is due. +1 edema noted on BUE. Sacral area is reddened, but blanchable. 2 scabbed over sores noted on bilaterial buttock. Lung sounds clear. IV's located on bilateral wrists. IV dressings clean, dry, and intact. Patient denies any further needs at this time. Call light in reach. Fall precautions in place.
[2021-08-25] MEDS ORDERED: K-TAB10 PO (09:14)
[2021-08-25] MEDS ORDERED: LASIX 20MG TABL20 MG PO (09:14)
[2021-08-25] MEDS ORDERED: PERCOCET 325 MG1 TA3 PO (09:17)
[2021-08-25] MEDS ORDERED: LIPITOR20 MG PO (09:18)
[2021-08-25] MEDS ORDERED: ZANAFLEX CAPSULE2 MG PO (09:18)
[2021-08-25] MEDS ORDERED: PRINIVIL10 MG PO (09:18)
[2021-08-25] MEDS ORDERED: VITRON-C PO (09:18)
[2021-08-25] MEDS ORDERED: ASPIRIN E.C. 8181 MG PO (09:19)
[2021-08-25] MEDS ORDERED: TYLENOL 325MG325 MG PO (09:19)
[2021-08-25] MEDS ORDERED: NEURONTIN300 MG/CAP PO (09:19)
[2021-08-25] MEDS ORDERED: ZOLOFT 50MG50 MG PO (09:19)
[2021-08-25] MEDS ORDERED: AMBIEN 5MG TABLE5 MG PO (09:19)
[2021-08-25] MEDS ORDERED: ONE-A-DAY ESSE1 EACH PO (09:21)
[2021-08-25] MEDS ORDERED: PRILOSEC 20MG20 MG PO (09:21)
[2021-08-25] MEDS ORDERED: VITAMIN D31000 I1 PO (09:21)
[2021-08-25 10:27] VITALS: BP 155/79; PULSE 74; TEMP 99
--- NOTE | 2021-08-25 10:51 | NUR ---
Patient deemed fit for discharge to [place] for rehab. PRN percocet given. IV DC'd by student. Catheter intact, no signs of phlebitis. Report given to GISSELLE Magaña. Patient escorted out of building and transferred to [facility] by [facility] staff. VSS. Patient A&O.
--- NOTE | 2021-08-25 10:53 | NUR ---
[facility] contacted, dc orders and clinical updates faxed over. Patient arranged to be picked up at 1030 to return. Patient notified and contacted.
--- NOTE | 2021-08-25 13:52 | NUR ---
Primary nurse was assisted with [id number] patient care by [facility] student Rachel Avalos and [employer] [employer] [employer] instructor Candy Vegas MSN, RN
== END 2021-08-25 10:30 | DRG 92 ==
LOC: COL.ER 10:00 → MEDICAL 12:18
PROVIDERS: Emergency Medicine; Physician Assistant; ADMIT Internal Medicine
DX: G72.9 Myopathy, unspecified (principal); I50.32 Chronic diastolic (congestive) heart failure; E46 Unspecified protein-calorie malnutrition; E87.6 Hypokalemia; I48.91 Unspecified atrial fibrillation; E78.5 Hyperlipidemia, unspecified; I25.10 Atherosclerotic heart disease of native coronary artery without angina pectoris; I11.0 Hypertensive heart disease with heart failure; I27.20 Pulmonary hypertension, unspecified; K21.9 Gastro-esophageal reflux disease without esophagitis; G89.29 Other chronic pain; M54.9 Dorsalgia, unspecified; I95.9 Hypotension, unspecified; E86.1 Hypovolemia; K59.00 Constipation, unspecified; I73.9 Peripheral vascular disease, unspecified; E16.2 Hypoglycemia, unspecified; F32.A Depression, unspecified; G47.30 Sleep apnea, unspecified; Z72.0 Tobacco use; Z79.01 Long term (current) use of anticoagulants; Z79.82 Long term (current) use of aspirin; Z20.822 Contact with and (suspected) exposure to COVID-19
CPT/HCPCS: 99222-AI; 99232-AI; 99239; J3411; J3475; J7030; J7040; J7120

== ENCOUNTER → 2021-11-15 | Outpatient (CLI) | payer MEDICARE, OTHER ==
[~2021-11-15] MED LIST changes: +K-TAB10 PO
== END ==
LOC: MHCPAIN 15:04
DX: M47.896 Other spondylosis, lumbar region (principal); M96.1 Postlaminectomy syndrome, not elsewhere classified; M54.16 Radiculopathy, lumbar region; G89.29 Other chronic pain
CPT/HCPCS: G0463

== ENCOUNTER → 2022-01-24 | Outpatient (CLI) | payer MEDICARE, OTHER | LOC: MHCPAIN 14:02 | DX: M54.17 Radiculopathy, lumbosacral region (principal); M79.604 Pain in right leg; M96.1 Postlaminectomy syndrome, not elsewhere classified; G89.29 Other chronic pain | CPT/HCPCS: G0463 ==

== ENCOUNTER → 2022-05-02 | Outpatient (CLI) | payer MEDICARE, OTHER | LOC: MHCPAIN 14:55 | DX: M54.16 Radiculopathy, lumbar region (principal); M47.896 Other spondylosis, lumbar region; M96.1 Postlaminectomy syndrome, not elsewhere classified | CPT/HCPCS: G0463 ==

== ENCOUNTER → 2022-07-24 | Outpatient (CLI) | payer MEDICARE, OTHER ==
[~2022-07-24] MED LIST changes: +LIPITOR 10MG10 MG PO; +ZOLOFT 100MG100 MG PO
== END ==
LOC: MHCPAIN 14:29
DX: M47.896 Other spondylosis, lumbar region (principal); M54.16 Radiculopathy, lumbar region; M96.1 Postlaminectomy syndrome, not elsewhere classified
CPT/HCPCS: G0463

== ENCOUNTER 2022-08-01 15:06 | Outpatient (CLI) | payer MEDICARE, OTHER ==
[~2022-08-01 15:06] MED LIST changes: -LIPITOR 10MG10 MG PO; -ZOLOFT 100MG100 MG PO
[2022-08-01 15:55] VITALS: BP 157/88; PULSE 83; TEMP 98.3
[2022-08-01] MEDS ORDERED: LIPITOR 10MG10 MG PO (17:14)
[2022-08-01] MEDS ORDERED: ZOLOFT 100MG100 MG PO (17:17)
[2022-08-01] MEDS ORDERED: ELIQUIS 5MG PO (17:18)
[2022-08-01] MEDS ORDERED: TOPROL XL 25MG25 MG PO (17:18)
== END 2022-08-01 17:19 | disposition home or self-care (01) ==
LOC: EUO 15:06
DX: M85.80 Other specified disorders of bone density and structure, unspecified site (principal)
CPT/HCPCS: J3489

== ENCOUNTER → 2023-01-22 | Outpatient (CLI) | payer MEDICARE, OTHER ==
[~2023-01-22] MED LIST changes: +LIPITOR 10MG10 MG PO; +ZOLOFT 100MG100 MG PO
== END ==
LOC: MHCPAIN 14:28
DX: M54.16 Radiculopathy, lumbar region (principal); M96.1 Postlaminectomy syndrome, not elsewhere classified; I48.91 Unspecified atrial fibrillation; I25.10 Atherosclerotic heart disease of native coronary artery without angina pectoris; Z95.5 Presence of coronary angioplasty implant and graft
CPT/HCPCS: G0463

== ENCOUNTER → 2023-02-27 | Outpatient (CLI) | payer MEDICARE, OTHER | LOC: COL.RAD 09:32 | DX: Z12.2 Encounter for screening for malignant neoplasm of respiratory organs (principal); K44.9 Diaphragmatic hernia without obstruction or gangrene; J98.11 Atelectasis; F17.200 Nicotine dependence, unspecified, uncomplicated ==

== ENCOUNTER → 2023-07-23 | Outpatient (CLI) | payer MEDICARE, OTHER | LOC: MHCPAIN 13:32 | DX: M48.061 Spinal stenosis, lumbar region without neurogenic claudication (principal); M54.50 Low back pain, unspecified; I48.91 Unspecified atrial fibrillation; I25.10 Atherosclerotic heart disease of native coronary artery without angina pectoris | CPT/HCPCS: G0463 ==

== ENCOUNTER 2024-03-05 23:10 | Inpatient (IN) | payer MEDICARE, OTHER ==
[~2024-03-05] VITALS: Ht 175.3 cm; Wt 86.8 kg
[2024-03-05] MEDS ORDERED: Morphine 4 MG/ML VIAL IV ONE ×2 (23:15→23:45)
[2024-03-05 23:52] LABS: BASO % 0.4 % (0.0-2.0); EOS % 0.4 % (0.0-4.0); GRAN # 5.1 K/mm3 (1.4-6.5); GRAN % 73.2 % (42.2-75.2); HEMATOCRIT 34.3 % (42.0-52.0); HEMOGLOBIN 11.6 g/dl (13.5-18.0); LYMPH # 1.1 K/mm3 (1.2-3.4); MEAN CELL VOLUME 104 fl (80.0-100.0); MEAN CORPUSCULAR HEMOGLOBIN 35 pg (27-31); MEAN CORPUSCULAR HGB CONC 34 g/dl (33.0-37.0); MEAN PLATELET VOLUME 10.4 fl (7.4-10.4); MONO # 0.7 K/mm3 (0.1-0.6); MONO % 10.4 % (1.7-9.3); PLATELET COUNT 219 K/mm3 (130-400)
[2024-03-06] VITALS (18 sets, daily range): BP systolic 98–172; BP diastolic 64–90; PULSE 72–142; TEMP 98–99.1
[2024-03-06 00:07] LABS: ALBUMIN 3.4 g/dL (3.4-4.8); BILIRUBIN,TOTAL 0.9 mg/dL (0.2-1.2); CALCIUM 9.2 mg/dL (8.4-10.2); CREATININE, serum 0.95 mg/dL (0.72-1.25); POTASSIUM 3.7 mEq/L (3.5-4.5); TOTAL PROTEIN 6.5 g/dl (6.2-8.1)
[2024-03-06] MEDS ORDERED: HYDROmorphone 0.5 MG/0.5 ML SYRINGE IV PRN (00:30)
[2024-03-06] MEDS ORDERED: LORazepam 2 MG/ML 1 ML VIAL IV ONE (00:30)
[2024-03-06] MEDS ORDERED: D5 1/2 NS 1,000 ML IV SCH ×2 (00:45→23:30)
[2024-03-06] MEDS ORDERED: Naloxone 0.4 MG/ML VIAL IV PRN (00:45)
[2024-03-06] MEDS ORDERED: oxyCODONE 5 MG TAB PO PRN ×2 (00:45→02:30)
[2024-03-06] MEDS ORDERED: Acetaminophen 500 MG TAB PO SCH (01:00)
[2024-03-06 01:01] LABS: INR 1.3 (0.8-3.0); PROTHROMBIN TIME 13.7 SECONDS (9.7-12.8)
--- NOTE | 2024-03-06 01:23 | NUR ---
RECEIVED REPORT FROM Oli NURSECHIRAG. PATIENT ARRIVAL FOR ADMIT TO ROOM 327 PENDING.
[2024-03-06] MEDS ORDERED: LORazepam 1 MG TAB PO PRN (01:30)
[2024-03-06] MEDS ORDERED: LORazepam 2 MG/ML 1 ML VIAL IM PRN (01:30)
[2024-03-06] MEDS ORDERED: LORazepam 2 MG/ML 1 ML VIAL IV PRN (01:30)
[2024-03-06] MEDS ORDERED: Folic Acid 1 MG,Thiamine 200 MG in NS 1,000 ML IV ONE (01:30)
[2024-03-06] MEDS ORDERED: Mag/Al Hydrox/Simeth Susp 30 ML CUP PO PRN (01:30)
[2024-03-06] MEDS ORDERED: Metoprolol Tartrate 5 MG/5 ML VIAL IV ONE (01:45)
[2024-03-06] MEDS ORDERED: Lidocaine 4% Topical Patch TP SCH (02:00)
--- NOTE | 2024-03-06 02:24 | NUR ---
PATIENT FREQUENTLY YELLING "OUCH" LOUDLY AND UNABLE TO ANSWER ADMIT QUESTIONS AT THIS TIME. ABLE TO ANSWER SOME ORIENTATION QUESTIONS AT THIS TIME. NO FAMILY PRESENT WITH PATIENT CURRENTLY. PATIENT HAS OXYGEN PER NC TO NARES AT 3 LPM. IV PATENT TO RIGHT WRIST. TRACTION APPLIED TO RLE, PER D.O.
[2024-03-06] MEDS ORDERED: Potassium Bicarbonate/Citrate 20 MEQ Effervescent TAB PO SCH (02:30)
[2024-03-06] MEDS ORDERED: Magnesium Sulfate 4% 50 ML IV ONE (02:30)
[2024-03-06] MEDS ORDERED: *Potassium Replacement Protocol MC SCH (02:30)
--- NOTE | 2024-03-06 02:42 | NUR ---
PATIENT REFUSED TO HAVE LUIS CATHETER INSERTED AT THIS TIME. PATIENT ALSO ATTEMPTED TO PULL OUT IV AT THIS TIME BUT WAS AGREEABLE TO LEAVE IV IN FOR IV PAIN MEDS.
[2024-03-06] MEDS ORDERED: PERCOCET 325 MG1 TA3 PO (02:54)
[2024-03-06] MEDS ORDERED: PRINIVIL2.5 MG PO (02:57)
[2024-03-06] MEDS ORDERED: AMBIEN CR 12.12.5 MG PO (02:57)
--- NOTE | 2024-03-06 03:40 | NUR ---
18F coude azar cath placed at this time by this nurse. Patient is very combative trying to strike staff. UA sent to lab per order. Report given to primary nurse Pooja PITTS
[2024-03-06 03:51] LABS: COLLECTION METHOD CATHETER
[2024-03-06 04:03] LABS: PH 5.5 (5.0-8.5); URINE APPEARANCE CLEAR (CLEAR/HAZY); URINE BLOOD NEGATIVE (NEGATIVE); URINE COLOR YELLOW (YELLOW); URINE GLUCOSE NEGATIVE (NEGATIVE); URINE KETONE 1+ (NEGATIVE); URINE NITRATE NEGATIVE (NEGATIVE); URINE PROTEIN(semi-quant) 1+ (NEGATIVE); URINE UROBILINOGEN 0.2 E.U/dL (0.2-1.0)
[2024-03-06 04:09] LABS: TRICYCLIC ANTIDEPRESS URINE NEGATIVE (NEGATIVE)
--- NOTE | 2024-03-06 05:07 | NUR ---
ATTEMPTED ADDITIONAL IV SITE, UNSUCCESSFUL VENIPUNCTURE.
--- NOTE | 2024-03-06 06:35 | NUR ---
awake and moving about in bed, moved from room 327 to 325 due to patient pulling at IV and azar and needs to be closely monitored, bedside shift report received from GISSELLE Puente
--- NOTE | 2024-03-06 06:55 | NUR ---
CHELSEY Marie in to see patient
--- NOTE | 2024-03-06 06:56 | NUR ---
Change of shift report given to day shift nurse
[2024-03-06] MEDS ORDERED: Omeprazole 20 MG **** subs to Pantoprazole 40 MG PO SCH (07:00)
--- NOTE | 2024-03-06 07:13 | NUR ---
Dr Sullivan notified of consult
[2024-03-06] MEDS ORDERED: Multivitamin TAB PO SCH (08:00)
--- NOTE | 2024-03-06 08:00 | NUR ---
calls out at intervals in pain, does not pull at azar now
--- NOTE | 2024-03-06 08:40 | NUR ---
resting in bed, calls out in pain at intervals, medicated with dilaudid 0.5mg slow IV, full assessment completed see interventions for further info, unable to palpate right dorsalis pedal pulse, doppler used and able to locate strong pulse
--- NOTE | 2024-03-06 08:50 | NUR ---
Dr Velasco and care team in to see patient, now at bedside and pharmacist talking with her regarding his pain med and alcohol use at home
[2024-03-06] MEDS ORDERED: Lisinopril 5 MG TAB PO SCH (09:00)
[2024-03-06] MEDS ORDERED: Sertraline 100 MG TAB PO SCH (09:00)
[2024-03-06] MEDS ORDERED: Atorvastatin 10 MG TAB PO SCH (09:00)
[2024-03-06] MEDS ORDERED: Cholecalciferol (Vit D3) 1000 Units TAB PO SCH (09:00)
[2024-03-06] MEDS ORDERED: Nicotine 14 MG DAILY PATCH TD SCH (09:00)
[2024-03-06] MEDS ORDERED: Thiamine 100 MG TAB PO SCH (09:00)
[2024-03-06] MEDS ORDERED: tiZANidine 4 MG TAB PO SCH (09:00)
[2024-03-06] MEDS ORDERED: Folic Acid 1 MG TAB PO SCH (09:00)
[2024-03-06] MEDS ORDERED: Morphine 4 MG/ML VIAL IV PRN (09:15)
--- NOTE | 2024-03-06 09:57 | NUR ---
DESHAWN Lira identified self as DESHAWN Student and completed intake with patient and [place] at bedside. Patient lives in [place], [place] with his [place] (ph#[phone]). France confirmed that patient sees Dr. Wtats for primary care and obtains medications [facility]. [place] stated that patient utilizes a wheelchair and FWW. She stated that patient also has a rollator but does not use it much anymore. [place] stated that patient is independent with meals but she assists with bathing and dressing. France also transports patient to medical appointments. [place] stated that she knows patient has a DPOA-HC but is unsure if anyone is appointed aside from herself. [place] stated that patient currently does not have an in home care services. She stated that patient previously had HH through the [facility] to help with bathing but he currently does not have any services. [place] stated that the [facility] has offered to make home renovations to increase safety but patient has refused. France stated that patient also sees Dr. Musa for pain management and Dr. Sullivan. Patient is covered by Medicare and . DESHAWN Lira discussed discharge planning. DESHAWN Lira advised that patient would be evaluated by PT/OT after surgery and they would give recommendations for discharge plan. [place] stated that patient has previously been at [facility] three times for rehab and they have not been pleased with their care. DESHAWN Lira provided Medicare.gov list of SNFs and IPRs in the surrounding area. [place] stated that she would prefer for referrals to be sent to [facility] and [facility]. DESHAWN Lira contacted DESHAWN Ibarra at Dr. Watts's office to verify if patient has a DPOA-HC on file with them. Stacey informed that they do have a copy and patient has his Stacey Almodovar and daughter Zoila Wilkes appointed as POAs. DESHAWN Lira requested form to be faxed to add to patient's chart here. Discharge Plan: TBD after surgery and PT/OT al
[2024-03-06] MEDS ORDERED: Heparin/D5W 250 ML IV SCH (10:45)
[2024-03-06] MEDS ORDERED: Heparin 5,000 UNITS/ML 1 ML VIAL IV PRN (10:45)
--- NOTE | 2024-03-06 11:55 | NUR ---
DESHAWN Villa sent SNF referrals via secure email to [facility] and [facility].
--- NOTE | 2024-03-06 12:00 | NUR ---
resting in bed, repositioned to left side, rolled to side and cocyx is red but no open area, he is now oriented to place and why he is here, states he is ready for lunch and COMMANDING OFFICER MOTORIZED SQUAD will assist him with ordering lunch, does call out in pain with movement but then is quiet
[2024-03-06] MEDS ORDERED: KLOR-CON M1010 MEQ PO (12:46)
--- NOTE | 2024-03-06 13:00 | NUR ---
lab was drawn by [facility] services nurse and to the lab, verified that coag blood drawn, heparin infusion started per order, sitting up in bed eating lunch
[2024-03-06 13:12] LABS: CALCIUM 8.8 mg/dL (8.4-10.2); CREATININE, serum 0.77 mg/dL (0.72-1.25); POTASSIUM 3.8 mEq/L (3.5-4.5)
[2024-03-06 13:15] LABS: PARTIAL THROMBOPLASTIN TIME 36.8 SECONDS (26.0-37.0)
--- NOTE | 2024-03-06 14:35 | NUR ---
bedside shift report given to MARIELLE Solano
--- NOTE | 2024-03-06 15:24 | NUR ---
trailhead maintenance worker was notified [facility] is unable to accept this patient for SNF.
--- NOTE | 2024-03-06 15:57 | NUR ---
THIS NURSE HAS TAKEN OVER CARE FOR THIS PATIENT, AGREE WITH MORNING ASSESSMENT DONE IN AM. PATIENT IS RESTING OFF AND ON, HAD SOME YELLING OUT DUE TO PAIN. PAIN MEDS GIVEN PER ORDERS. TRACTION IN PLACE AND CALL LIGHT IN REACH.
[2024-03-06] MEDS ORDERED: POTASSIUM PHOSHATE IV ONE (16:00)
[2024-03-06] MEDS ORDERED: NS IV ONE (16:00)
--- NOTE | 2024-03-06 20:46 | NUR ---
PTT 191.7 HEPARIN GTT STOPPED FOR 2 HRS PER PROTOCOL, PTT ORDERED FOR 2245
[2024-03-06 23:14] LABS: PARTIAL THROMBOPLASTIN TIME 47.1 SECONDS (26.0-37.0)
--- NOTE | 2024-03-06 23:45 | NUR ---
HEPARIN RESTARTED AT 1300 UNITS/HR, WILL STOP AT MIDNIGHT PER ORDER.
[2024-03-07] VITALS (17 sets, daily range): BP systolic 60–147; BP diastolic 47–89; PULSE 69–116; TEMP 97.6–98.7
--- NOTE | 2024-03-07 00:01 | NUR ---
HEPARIN INFUSION PLACED ON HOLD PER ORDER
[2024-03-07] MEDS ORDERED: LR 1,000 ML IV SCH (05:00)
[2024-03-07 06:48] LABS: MAGNESIUM 1.8 mg/dL (1.6-2.6); PHOSPHOROUS 3.2 mg/dL (2.3-4.7)
--- NOTE | 2024-03-07 06:50 | NUR ---
Pt. laying in bed with family at bedside. Pt. is A&OX3, assessment complete. INT to lt. ac patent. IV to rt. wrist with fluids infusing per orders. Fluids switched to pre-op fluids at this time. Pt. reports pain at a 9 on pain scale, will give pain meds. Pt. and family deny further needs.
[2024-03-07] MEDS ORDERED: fentaNYL 50 MCG/ML 2 ML VIAL ONE ×3 (07:07→08:14)
[2024-03-07] MEDS ORDERED: Ondansetron 4 MG/2 ML VIAL ONE (07:08)
[2024-03-07] MEDS ORDERED: dexAMETHasone 10 MG/ML VIAL ONE (07:08)
[2024-03-07] MEDS ORDERED: Lidocaine PF 2% (20 MG/ML) 5 ML VIAL ONE (07:08)
[2024-03-07] MEDS ORDERED: NS 10 ML IV ONE ×2 (07:08→07:09)
[2024-03-07] MEDS ORDERED: fentaNYL 50 MCG/ML 1 ML SYRINGE/VIAL [PACU/SDC ONLY] IV PRN (08:00)
[2024-03-07] MEDS ORDERED: HYDROmorphone 1 MG/1 ML SYRINGE [PACU/SDC ONLY] IV PRN (08:00)
[2024-03-07] MEDS ORDERED: Ondansetron 4 MG/2 ML VIAL IV PRN ×2 (08:00→10:00)
[2024-03-07] MEDS ORDERED: Docusate Sodium 100 MG CAP PO PRN (10:00)
[2024-03-07] MEDS ORDERED: Mag/Al Hydrox/Simeth Susp 30 ML CUP PO PRN (10:00)
[2024-03-07] MEDS ORDERED: Naloxone 0.4 MG/ML VIAL IV PRN (10:00)
[2024-03-07] MEDS ORDERED: Morphine 4 MG/ML VIAL IV PRN ×2 (10:00→13:00)
[2024-03-07] MEDS ORDERED: Magnes Hydrox (MOM) 80 MG/ML 30 ML CUP PO PRN (10:00)
--- NOTE | 2024-03-07 11:40 | NUR ---
Initial visit; Patient, his and daughter thanked Music Industry Intern for looking in on him and offering God's blessings. Music Industry Intern wished Roderick well and will keep him in her prayers which pleased him.
[2024-03-07] MEDS ORDERED: oxyCODONE 5 MG TAB PO PRN (13:00)
--- NOTE | 2024-03-07 13:11 | NUR ---
DESHAWN faxed updated clinicals to [facility] for referral. Discharge plan: SNF
[2024-03-07] MEDS ORDERED: ceFAZolin 2 G in Water For Injection,Sterile 20 ML IV SCH (14:00)
[2024-03-07 20:03] LABS: MEAN CELL VOLUME 107 fl (80.0-100.0); MEAN CORPUSCULAR HGB CONC 34 g/dl (33.0-37.0); MEAN PLATELET VOLUME 11.1 fl (7.4-10.4); PLATELET COUNT 173 K/mm3 (130-400); RED BLOOD COUNT 2.36 M/mm3 (4.20-5.60); REDCELL DISTRIBUTION WIDTH-CV 16.1 % (11.5-14.5)
[2024-03-07 20:06] LABS: HEMATOCRIT 25.3 % (42.0-52.0); HEMOGLOBIN 8.5 g/dl (13.5-18.0); MEAN CORPUSCULAR HEMOGLOBIN 36 pg (27-31)
[2024-03-07 20:14] LABS: CALCIUM 7.8 mg/dL (8.4-10.2); CREATININE, serum 0.81 mg/dL (0.72-1.25); POTASSIUM 4.6 mEq/L (3.5-4.5)
[2024-03-07 20:18] LABS: BAND 10 % (0-10); LYMPHOCYTE 7 % (20.0-51.0); NEUTROPHILS 83 % (42.0-75.2)
[2024-03-07 20:19] LABS: PLATELET ESTIMATE NORMAL (NORMAL)
[2024-03-07] MEDS ORDERED: Apixaban 5 MG TAB PO SCH (21:00)
[2024-03-08] VITALS (13 sets, daily range): BP systolic 93–129; BP diastolic 51–76; PULSE 65–91; TEMP 97.8–99
[2024-03-08] MEDS ORDERED: NS 1,000 ML IV SCH (04:00)
--- NOTE | 2024-03-08 04:10 | NUR ---
LOW URINE OUTPUT TONIGHT, NOT DRINKING A LOT, bp on the low side as well, JESS More APRN NOTIFIED AND NS started @ 100cc/hr.
--- NOTE | 2024-03-08 06:33 | NUR ---
BETTER PAIN CONTROL THIS AM, NOT SHOUTING OUT FREQUENTLY, TURNING Q2, SLIGHT INCREASE IN URINE OUTPUT SINCE IVF RESTARTED. ORDER REC'D TO REMOVE LUIS TODAY PER DR REID.
[2024-03-08 07:18] LABS: HEMATOCRIT 24.1 % (42.0-52.0)
--- NOTE | 2024-03-08 09:30 | NUR ---
PT LAYING IN BED UPON ENTERING. ASSESSMENT DONE, MEDS GIVEN PER ORDER. PT REPORTS 7/10 RIGHT HIP PAIN AND GIVEN PRN BY BOOK STORE ASSOCIATE RN. NORMAL SALINE RUNNING AT 100 MLS/HR IN LEFT AC. INT TO RIGHT WRIST PATENT. LUIS DRAINING WITHOUT ISSUES. NICOTINE PATCH TO LEFT UPPER ARM REMOVED, NO ORDER FOR REPLACEMENT. SURGICAL SITE TO RIGHT HIP COVERED WITH GAUZE AND TEGADERM, DRESSING CLEAN DRY AND INTACT. PT DENIES NEEDS AT THIS TIME. BED IN LOWEST POSITION, CALL LIGHT IN REACH, BED ALARM ON.
--- NOTE | 2024-03-08 11:05 | NUR ---
LEFT AC IV INFUSING LR @ 100 WHEN INFILTRATED. FLUIDS SWITCHED TO RIGHT WRIST AND STARTED PER ORDER.
--- NOTE | 2024-03-08 11:20 | NUR ---
Contact Officer witnessed patient yelling and being verbally abusive to staff and his . SW met with patient's in lobo and provided opportunity for her to vent feelings and frustrations related to how patient is abusive toward her and discussed that she is unable to care for him at home in his current physical condition. , tearful. stated that she and their children have discussed patient being admitted to snf care due to condition. SW discussed referrals to SNF and patient's poor participation with therapy at this time. SW met with patient at bedside, patient angry and yelling at SW. Pt informed patient that he cannot yell at this SW and that he cannot be abusive toward staff. Patient voiced frustration "that someone is always knocking on his door and bothering him." SW explained each discipline that comes to his room and purpose of their visits. Patient accepting of explanation. Patient and SW calmly discussed referrals to SNF to which patient voiced agreement. He asked for referral to be faxed to [facility], as it is close to his home. SW explained that patient will have to work with therapy to be able to receive rehab at discharge. Patient agreeable. Referral faxed to [facility] for review for SNF placement. Discharge plan: SNF
--- NOTE | 2024-03-08 15:10 | NUR ---
HONING MACHINE OPERATOR SEMIAUTOMATIC TOLD THIS NURSE THAT LUIS WASNT DISCONTINED DURING THAT SHIFT DUE TO LOWER URINE OUTPUT. PT HAS 300 MLS OUT CURRENTLY FOR THIS SHIFT. DR OCONNOR CALLED AND UPDATED. THIS NURSE TOLD TO LEAVE LUIS FOR THE DAY AND TOMORROW DISCONTINUED LUIS
--- NOTE | 2024-03-09 07:01 | NUR ---
PAIN CONTROLLED WITH PO PAIN MEDS THIS SHIFT, TURNED AND REPOSITIONED IN BED Q2HRS, LUIS DRAINING DORY YELLOW URINE, PT WANTING IT DC'D. DRESSING TO RIGHT HIP CDI.
[2024-03-09 08:00] VITALS: BP 132/74; PULSE 80; TEMP 98.7
[2024-03-09 08:31] VITALS: BP_SYST 132
--- NOTE | 2024-03-09 09:00 | NUR ---
Pt doing okay this morning. He is grouchy at times and yells a lot. He states it is because he is not sure if we can hear him. Informed him that we can all hear him with no issues at all. Stated that when he gets to yelling that we all assume he is upset. Pt did not want me to take out his catheter, but once it was out he was releived. Pts is here, but stays out of his room quite a bit due to his behavior/yelling. Pt was assuming that she would be taking him somewhere today, but stated that most places will provide the transportation. He was okay with this and is hoping for [facility]. No other needs, PRN pain medication given when possible
--- NOTE | 2024-03-09 09:11 | NUR ---
DESHAWN faxed updated clinicals to [facility]. Messages left with both facilities to follow up on acceptance. DESHAWN attended clinical rounds. Patient medically stable for discharge pending SNF acceptance. Discharge plan: SNF
[2024-03-09] MEDS ORDERED: TYLENOL 500MG500 MG PO (11:51)
[2024-03-09] MEDS ORDERED: FOLIC ACID 11 MG/TA1 PO (11:52)
[2024-03-09] MEDS ORDERED: BLUE-EMU LIDOC1 EACH TP (11:53)
[2024-03-09] MEDS ORDERED: THIAMINE 1100 MG/TAB PO (11:53)
[2024-03-09 11:59] VITALS: BP 121/78; PULSE 77; TEMP 99.1
[2024-03-09 12:01] VITALS: BP_SYST 121
--- NOTE | 2024-03-09 12:03 | NUR ---
SW attended clinical rounds with team. Patient pending acceptance to SNF. SW received call from Yfn at [facility] accepting patient for admission today. Patient and notified and agreeable. signed Medicare IM form, copy provided to them and original on chart. Awaiting orders and dc summary to fax to facility. Yfn to notify SW of transport time. Discharge plan: [facility]
[2024-03-09] MEDS ORDERED: DAZIDOX10 MG PO (12:09)
--- NOTE | 2024-03-09 13:20 | NUR ---
Pt still yells off and on, more so at his than anything. Continue to interject when possible due to most of the things he is yelling about has nothing to do with her. Pt is aware that he is going to [facility] and has no issues with this. This was his first choice of location. Staff in with pt at this time assisting with getting him dressed
[2024-03-09 13:22] VITALS: BP 121/78; PULSE 77; TEMP 99.1
--- NOTE | 2024-03-09 14:00 | NUR ---
SW received call from [facility] stating transport is set for 1500. Nurse to Nurse [phone] provided to patient's nurse.
--- NOTE | 2024-03-09 15:08 | NUR ---
Pt doing okay at this time. Report called to nurse Krys Guerra
== END 2024-03-09 15:36 | DRG 480 ==
LOC: COL.ER 23:10 → SURG 03-06 01:15
PROVIDERS: Internal Medicine; Nurse Practitioner; Nurse Practitioner Family; Physician Assistant; ADMIT Internal Medicine
PROC: 0QS636Z Reposition Right Upper Femur with Intramedullary Internal Fixation Device, Percutaneous Approach (ICD-10-PCS; principal; 2024-03-06)
DX: S72.101A Unspecified trochanteric fracture of right femur, initial encounter for closed fracture (principal); J96.01 Acute respiratory failure with hypoxia; I50.32 Chronic diastolic (congestive) heart failure; I48.91 Unspecified atrial fibrillation; M85.80 Other specified disorders of bone density and structure, unspecified site; E78.5 Hyperlipidemia, unspecified; I25.10 Atherosclerotic heart disease of native coronary artery without angina pectoris; Z95.5 Presence of coronary angioplasty implant and graft; I11.0 Hypertensive heart disease with heart failure; I27.20 Pulmonary hypertension, unspecified; I73.9 Peripheral vascular disease, unspecified; Z95.820 Peripheral vascular angioplasty status with implants and grafts; K27.9 Peptic ulcer, site unspecified, unspecified as acute or chronic, without hemorrhage or perforation; K22.70 Barrett's esophagus without dysplasia; K21.9 Gastro-esophageal reflux disease without esophagitis; G89.29 Other chronic pain; G72.9 Myopathy, unspecified; G47.00 Insomnia, unspecified; D64.9 Anemia, unspecified; F10.90 Alcohol use, unspecified, uncomplicated; E83.42 Hypomagnesemia; E83.39 Other disorders of phosphorus metabolism; Z79.01 Long term (current) use of anticoagulants; F17.210 Nicotine dependence, cigarettes, uncomplicated; Z96.653 Presence of artificial knee joint, bilateral
CPT/HCPCS: C1713; J0690; J1100; J1170; J1644; J2060; J2270; J2405; J2704; J2795; J3010; J3411; J3475; J7030; J7040; J7120

== ENCOUNTER → 2024-06-29 | Outpatient (CLI) | payer MEDICARE, OTHER ==
[~2024-06-29] MED LIST changes: +AMBIEN CR 12.12.5 MG PO; +BLUE-EMU LIDOC1 EACH TP; +DAZIDOX10 MG PO; +KLOR-CON M1010 MEQ PO; +PRINIVIL2.5 MG PO; +TYLENOL 500MG500 MG PO
== END ==
LOC: MHCPAIN 14:45
DX: M47.27 Other spondylosis with radiculopathy, lumbosacral region (principal); M48.07 Spinal stenosis, lumbosacral region; M96.1 Postlaminectomy syndrome, not elsewhere classified; I48.91 Unspecified atrial fibrillation; I25.10 Atherosclerotic heart disease of native coronary artery without angina pectoris; Z98.61 Coronary angioplasty status; Z79.01 Long term (current) use of anticoagulants
CPT/HCPCS: G0463

== ENCOUNTER 2024-07-29 19:17 | Inpatient (IN) | payer MEDICARE, OTHER ==
[2024-07-29] VITALS (12 sets, daily range): BP systolic 61–152; BP diastolic 24–95; PULSE 71–93; TEMP 98.2; O2SAT 83–100
[~2024-07-29] VITALS: Ht 172.7 cm; Wt 93.9 kg
[2024-07-29] MEDS ORDERED: NS 500 ML IV SCH (19:45)
[2024-07-29 20:07] LABS: BASO % 0.3 % (0.0-2.0); EOS # 0.1 K/mm3 (0.0-0.7); EOS % 1.4 % (0.0-4.0); GRAN # 8.4 K/mm3 (1.4-6.5); GRAN % 80.9 % (42.2-75.2); LYMPH # 0.9 K/mm3 (1.2-3.4); LYMPH % 8.3 % (20.0-51.0); MEAN CELL VOLUME 84 fl (80.0-100.0); MEAN CORPUSCULAR HGB CONC 32 g/dl (33.0-37.0); MEAN PLATELET VOLUME 10.7 fl (7.4-10.4); MONO # 0.9 K/mm3 (0.1-0.6); PLATELET COUNT 299 K/mm3 (130-400); RED BLOOD COUNT 3.19 M/mm3 (4.20-5.60); REDCELL DISTRIBUTION WIDTH-CV 18.7 % (11.5-14.5)
[2024-07-29 20:13] LABS: HEMATOCRIT 26.9 % (42.0-52.0); HEMOGLOBIN 8.5 g/dl (13.5-18.0); MEAN CORPUSCULAR HEMOGLOBIN 27 pg (27-31)
[2024-07-29 20:20] LABS: ALBUMIN 2.8 g/dL (3.4-4.8); BILIRUBIN,TOTAL 0.4 mg/dL (0.2-1.2); CALCIUM 8.5 mg/dL (8.4-10.2); CREATININE, serum 0.97 mg/dL (0.72-1.25); POTASSIUM 4.4 mEq/L (3.5-4.5); TOTAL PROTEIN 6.6 g/dl (6.2-8.1)
[2024-07-29 21:12] LABS: MAGNESIUM 1.7 mg/dL (1.6-2.6); PHOSPHOROUS 3.1 mg/dL (2.3-4.7)
[2024-07-29 21:15] LABS: ALCOHOL(ethanol),MEDICAL < 10 mg/dL (0-10)
[2024-07-29 21:46] LABS: COLLECTION METHOD CLEAN CATCH
[2024-07-29 21:52] LABS: PH 5.5 (5.0-8.5); URINE APPEARANCE CLEAR (CLEAR/HAZY); URINE BLOOD NEGATIVE (NEGATIVE); URINE COLOR YELLOW (YELLOW); URINE GLUCOSE NEGATIVE (NEGATIVE); URINE KETONE NEGATIVE (NEGATIVE); URINE NITRATE NEGATIVE (NEGATIVE); URINE PROTEIN(semi-quant) NEGATIVE (NEGATIVE)
[2024-07-29] MEDS ORDERED: Vasopressin 20 UNITS in NS 100 ML IV PRN ×2 (22:15→22:45)
[2024-07-29] MEDS ORDERED: NS 1,000 ML IV SCH ×2 (22:15→22:45)
[2024-07-29] MEDS ORDERED: Vancomycin 2 GM,Special Dose/Pharmacy Prepared 2 GM in NS 500 ML IV SCH ×2 (22:15→22:45)
[2024-07-29] MEDS ORDERED: ABILIFY5 MG PO (22:41)
[2024-07-29] MEDS ORDERED: ZANAFLEX CAPSULE4 MG PO (22:41)
[2024-07-29] MEDS ORDERED: PERCOCET 325 MG1 TA3 PO (22:42)
[2024-07-29] MEDS ORDERED: ARIPiprazole 5 MG TAB PO SCH (22:44)
[2024-07-29] MEDS ORDERED: tiZANidine 4 MG TAB PO PRN (22:45)
[2024-07-29] MEDS ORDERED: oxyCODONE/Acetaminophen 7.5-325 MG TAB PO PRN (22:45)
[2024-07-29] MEDS ORDERED: PRILOSEC 20MG20 MG PO (22:47)
[2024-07-29] MEDS ORDERED: AMBIEN CR6.25 MG PO (22:48)
[2024-07-29] MEDS ORDERED: Atorvastatin 10 MG TAB PO SCH (22:51)
[2024-07-29] MEDS ORDERED: Apixaban 5 MG TABLET PO SCH (22:52)
[2024-07-29] MEDS ORDERED: KLOR-CON SPRIN10 MEQ PO (22:52)
[2024-07-29] MEDS ORDERED: LASIX 40MG TABL40 MG PO (22:53)
[2024-07-29] MEDS ORDERED: DULCOLAX TAB5 MG PO (22:54)
[2024-07-29] MEDS ORDERED: DAZIDOX10 MG PO (22:54)
[2024-07-29] MEDS ORDERED: Bisacodyl 5 MG TAB PO PRN (23:00)
[2024-07-29] MEDS ORDERED: Acetaminophen 500 MG TAB PO PRN (23:00)
[2024-07-29] MEDS ORDERED: Vancomycin 1.75 GM,Special Dose/Pharmacy Prepared 1.75 GM in NS 500 ML IV ONE (23:15)
[2024-07-30] VITALS (365 sets, daily range): BP systolic 67–147; BP diastolic 47–104; PULSE 66–87; TEMP 98–98.4; O2SAT 39–100
[2024-07-30] MEDS ORDERED: Morphine 4 MG/ML VIAL IV PRN (00:45)
--- NOTE | 2024-07-30 02:16 | NUR ---
RECEIVED REPORT FROM MIRNA DICKERSON RN. PATIENT ARRIVED TO UNIT AROUND 2214. ALL BELONGINGS WITH PATIENT AT TIME OF TRANSFER. AT BEDSIDE. NO ACUTE EVENTS.
[2024-07-30] MEDS ORDERED: NS 500 ML IV PRN (04:00)
--- NOTE | 2024-07-30 04:14 | NUR ---
EDUCATED PATIENT ON PURPOSE OF URINARY CATHETER, PATIENT REFUSED. EDUCATED PATIENT THAT DUE TO HIS INCONTINENCE AND WOUND ON HIS BOTTOM, A LUIS CATHETER WOULD BE BENEFICIAL TO PREVENT FURTHER SKIN BREAKDOWN. PATIENT ADAMANTLY REFUSED. DOC NOTIFIED AND ATTEMPTED TO EDUCATE PATIENT WELL. PATIENT STILL REFUSED. DOC OKAYED NOT PUTTING IN CATHETER.
[2024-07-30 05:40] LABS: BASO # 0.1 K/mm3 (0.0-0.2); BASO % 0.5 % (0.0-2.0); EOS # 0.3 K/mm3 (0.0-0.7); EOS % 2.5 % (0.0-4.0); GRAN # 7.8 K/mm3 (1.4-6.5); GRAN % 75.9 % (42.2-75.2); LYMPH # 1.2 K/mm3 (1.2-3.4); LYMPH % 11.2 % (20.0-51.0); MEAN CELL VOLUME 84 fl (80.0-100.0); MEAN CORPUSCULAR HGB CONC 32 g/dl (33.0-37.0); MEAN PLATELET VOLUME 10.6 fl (7.4-10.4); MONO % 9.6 % (1.7-9.3); PLATELET COUNT 304 K/mm3 (130-400); RED BLOOD COUNT 2.93 M/mm3 (4.20-5.60); REDCELL DISTRIBUTION WIDTH-CV 18.6 % (11.5-14.5)
[2024-07-30 05:51] LABS: HEMATOCRIT 24.5 % (42.0-52.0); HEMOGLOBIN 7.8 g/dl (13.5-18.0); MEAN CORPUSCULAR HEMOGLOBIN 27 pg (27-31)
[2024-07-30 05:58] LABS: ALBUMIN 2.6 g/dL (3.4-4.8); ALKALINE PHOSPHATASE 116 U/L (40-150); ANION GAP 10 mmol/L (7-16); AST,SGOT 12 U/L (5-34); BILIRUBIN,TOTAL 0.6 mg/dL (0.2-1.2); BLOOD UREA NITROGEN 12 mg/dL (8-26); CALCIUM 7.8 mg/dL (8.4-10.2); CHLORIDE 107 mEq/L (98-107); CREATININE, serum 0.81 mg/dL (0.72-1.25); GLUCOSE 120 mg/dL (70-99); SODIUM 135 mEq/L (136-145); TOTAL PROTEIN 5.9 g/dl (6.2-8.1)
--- NOTE | 2024-07-30 06:02 | NUR ---
74 yo male admitted with hypotension and possible sepsis of unclear etiology. ht 172.72 cm wt 85.9 kg SCr 0.97 with estimated CrCl >60 ml/min half life 12.5 hours Plan: Will give an initial loading dose of vancomycin 1750 mg x1 (20.4 mg/kg); followed by a maintenance regimen of vancomycin 750 mg q12h to target a goal trough of 15-20 mcg/ml. Will follow patient's renal function, micro data, and vancomycin levels as indicated to assess for any necessary changes to regimen. Thank you for this dosing consult.
[2024-07-30 06:22] LABS: ALANINE AMINOTRANSFERASE < 6 U/L (0-55)
[2024-07-30] MEDS ORDERED: Omeprazole 40 MG **** subs to Pantoprazole 40 MG PO SCH (07:00)
[2024-07-30] MEDS ORDERED: Cholecalciferol (Vit D3) 25 MCG (1,000 Units) TAB PO SCH (09:00)
[2024-07-30] MEDS ORDERED: Sertraline 100 MG TAB PO SCH (09:00)
[2024-07-30] MEDS ORDERED: Multivitamin TAB PO SCH (09:00)
[2024-07-30] MEDS ORDERED: Folic Acid 1 MG TAB PO SCH (09:00)
[2024-07-30] MEDS ORDERED: Thiamine 100 MG TAB PO SCH (09:00)
[2024-07-30] MEDS ORDERED: MULTIPLE VITAMI1 TA1 PO (11:32)
[2024-07-30] MEDS ORDERED: ICY HOT 10-30%85 GM TP (11:36)
[2024-07-30] MEDS ORDERED: Iohexol 300 - 100 ML VIAL IV ONE (11:51)
[2024-07-30] MEDS ORDERED: Ferrous Sulfate 325 MG TAB PO SCH (14:11)
--- NOTE | 2024-07-30 14:56 | NUR ---
PT IS RESTING IN THE BED. HE IS ON 2L NC. HE IS USING A URINAL. HE HAS A CENTRAL LINE WITH THE BROWN PORT CONNECTED FOR CVP. HE HAS PERIPHERAL IV SITES WITH FLUIDS AND LEVO INFUSING. HE IS ALERT AND ORIENTED. HE HAS A WOUND ON HIS RIGHT HEEL AND A SORE AREA ON THE LOWER LATERAL RIGHT CALF.
--- NOTE | 2024-07-30 15:03 | NUR ---
Coverstitch Binder spoke with patient's , [place] (ph#[phone]) outside of room while patient had a scan. Patient lives at [facility] and is private pay. Patient sees Dr. Watts for primary care. Patient was hospitalized here 03/06/24-03/09/24 and was sent to [facility]. Per France's report, patient was taken off skilled due to lack of participation. Patient was then sent to a [place] contracted residential in [place], but patient ended up returning to [facility] as France stated the facility in [place] was not good. Patient has been back at [facility] since June. France advised she has tried to get him to other [place] facilities closer to home ([place] [facility]) and he could not go there as he smokes. France wanted to look into these facilities again as she does not want to continue to private pay. DESHAWN stated she would send referrals, however patient would need to return to [facility] if medically cleared for discharge before another facility could accept. France verbalized understanding and also mentioned patient is on the wait list of [facility]. DESHAWN contacted patient's [facility] to collaborate and provide update. KALA confirmed that patient has been on the waitlist at [facility]. [facility] also advised they had a [facility] contract in [place], however patient's did not like the facility and had patient return to [facility]. DESHAWN provided the above update and advised unless another facility accepts, patient will return to [facility]. DESHAWN sent referral via secure email to [facility], [facility] and [place]. DESHAWN also provided updates to Yfn at [facility]. Manda at [place] declined due to patient's smoking status currently. Discharge Plan: Likely return to [facility]
--- NOTE | 2024-07-30 17:46 | NUR ---
O2 SAT ALARM GOING OFF WITH SAT 85%, NASAL CANNULA OFF AND PT REMINDED TO KEEP ON. PT IS EATING AND STATES THAT HE CANT EAT WITH IT ON AND REFUSES. THIS NURSE REEDUCATED PT ON BENEFITS OF OXYGEN WITH LOW SATS, PT GETTING FRUSTRATED AND CONTINUES TO REFUSE.
--- NOTE | 2024-07-30 19:05 | NUR ---
PT YELLING OUT IN PAIN AND REPORTS SHARP RIGHT FOOT PAIN RATING IT 9/10. PRN MORPHINE GIVEN AND PT DENIES OTHER NEEDS AT THIS TIME
--- NOTE | 2024-07-30 19:48 | NUR ---
PATIENT LAYING IN BED, ALERT AND CALM. PATIENT USES URINAL TO VOID. CENTRAL LINE IN LEFT SUBCLAVIAN. IV'S IN LEFT WRIST AND RIGHT FOREARM. CALL LIGHT WITHIN REACH. NO ACUTE EVENTS.
[2024-07-30] MEDS ORDERED: Nicotine 7 MG DAILY PATCH TD SCH (20:00)
[2024-07-31] VITALS (555 sets, daily range): BP systolic 96–145; BP diastolic 54–85; PULSE 63–98; TEMP 96.7–98.1; O2SAT 49–100
[2024-07-31 06:08] LABS: BASO # 0.1 K/mm3 (0.0-0.2); BASO % 0.6 % (0.0-2.0); EOS # 0.3 K/mm3 (0.0-0.7); GRAN # 6.1 K/mm3 (1.4-6.5); LYMPH # 0.8 K/mm3 (1.2-3.4); LYMPH % 10.4 % (20.0-51.0); MEAN CELL VOLUME 85 fl (80.0-100.0); MEAN CORPUSCULAR HGB CONC 32 g/dl (33.0-37.0); MEAN PLATELET VOLUME 10.6 fl (7.4-10.4); MONO # 0.7 K/mm3 (0.1-0.6); MONO % 8.7 % (1.7-9.3); PLATELET COUNT 259 K/mm3 (130-400); RED BLOOD COUNT 2.84 M/mm3 (4.20-5.60); REDCELL DISTRIBUTION WIDTH-CV 18.6 % (11.5-14.5)
[2024-07-31 06:23] LABS: HEMOGLOBIN 7.6 g/dl (13.5-18.0); MEAN CORPUSCULAR HEMOGLOBIN 27 pg (27-31)
[2024-07-31 06:24] LABS: ALBUMIN 2.4 g/dL (3.4-4.8); ALKALINE PHOSPHATASE 103 U/L (40-150); ANION GAP 8 mmol/L (7-16); AST,SGOT 14 U/L (5-34); BILIRUBIN,TOTAL 0.3 mg/dL (0.2-1.2); BLOOD UREA NITROGEN 8 mg/dL (8-26); CALCIUM 7.7 mg/dL (8.4-10.2); CHLORIDE 108 mEq/L (98-107); CREATININE, serum 0.76 mg/dL (0.72-1.25); GLUCOSE 112 mg/dL (70-99); POTASSIUM 3.8 mEq/L (3.5-4.5); SODIUM 134 mEq/L (136-145); TOTAL PROTEIN 5.7 g/dl (6.2-8.1)
[2024-07-31 06:27] LABS: ALANINE AMINOTRANSFERASE < 6 U/L (0-55)
--- NOTE | 2024-07-31 07:00 | NUR ---
Report received from GISSELLE Ferguson; patient currently resting in bed. Patient has no meds or fluids running through his peripheral INT or central line. Patient on 2L oxygen via NC; no other lines or tubes are in place at this time. Patient's vital signs within normal limits this morning.
[2024-07-31] MEDS ORDERED: levoFLOXacin 750 MG TAB PO SCH (11:00)
[2024-07-31] MEDS ORDERED: metroNIDAZOLE 250 MG TAB PO SCH (11:00)
[2024-07-31] MEDS ORDERED: FERRO-TIME325 MG PO (12:17)
[2024-07-31] MEDS ORDERED: LEVAQUIN 750MG750 M1 PO (12:17)
[2024-07-31] MEDS ORDERED: FLAGYL500 MG PO (12:17)
--- NOTE | 2024-07-31 15:33 | NUR ---
Cushion Installer attended clinical rounds with the team and patient was cleared to transfer to the medical floor, however there was no bed available so patient will likely stay in ICU until discharge tomorrow morning. DESHAWN met with patient's , [place] and advised patient will meet SNF criteria and orders can be written for skilled, however patient will have to participate with therapy in order to qualify for a skilled stay. [place] verbalized understanding. DESHAWN contacted Yfn at [facility] who advised they would accept patient skilled tomorrow morning and pickle processor at 1030. DESHAWN faxed orders and medications. DESHAWN provided transportation time to patient's and to PURSE [employer]KER. Discharge Plan: [facility] SNF tomorrow at 1030
--- NOTE | 2024-07-31 20:36 | NUR ---
Patient moaning and grunting loudly in pain. States back pain and R lower leg pain is about 8-9/10 despite PRN morphine administration around 1830. PRN percocet administered by this RN. Due to persistent pain, patient refuses this RN's offer to reposition off coccyx. Unable to thoroughly assess coccyx due to refusal of position change. This RN attempts to assess wounds to right vu and right heel. Both wounds are covered by intact dressings. This RN attempts to lift dressing's edges to better assess and stage wounds; patient adamantly refuses, yelling at RN to leave the dressings alone. This RN was able to persuade patient to allow RN to float right heel on pillow, as this would help alleviate the right heel pain he is experiencing. He refused use of air boot when offered. Will attempt to assess coccyx and wounds to right leg at a later time when pain is better controlled.
[2024-07-31] MEDS ORDERED: Zolpidem 5 MG TAB PO SCH (21:00)
[2024-08-01] VITALS (231 sets, daily range): BP systolic 95–115; BP diastolic 60–65; PULSE 70–102; TEMP 98.2–98.9; O2SAT 94–100
--- NOTE | 2024-08-01 01:48 | NUR ---
PATIENT CONTINUES TO REFUSE REPOSITIONING WHEN OFFERED BY THIS RN. REFUSES TO LET RN PEEL BACK DRESSINGS ON R LEG TO EXAMINE WOUNDS.
[2024-08-01 06:14] LABS: BASO % 0.4 % (0.0-2.0); EOS # 0.2 K/mm3 (0.0-0.7); GRAN % 79.8 % (42.2-75.2); HEMOGLOBIN 7.3 g/dl (13.5-18.0); LYMPH # 0.7 K/mm3 (1.2-3.4); MEAN CELL VOLUME 86 fl (80.0-100.0); MEAN CORPUSCULAR HEMOGLOBIN 27 pg (27-31); MEAN CORPUSCULAR HGB CONC 32 g/dl (33.0-37.0); MONO # 0.6 K/mm3 (0.1-0.6); MONO % 7.4 % (1.7-9.3); PLATELET COUNT 257 K/mm3 (130-400); RED BLOOD COUNT 2.68 M/mm3 (4.20-5.60); REDCELL DISTRIBUTION WIDTH-CV 18.6 % (11.5-14.5)
--- NOTE | 2024-08-01 06:31 | NUR ---
PT AGREEABLE TO POSITION CHANGE AT THIS TIME. HEELS FLOATED. PT CONTINUES TO REPORT SIGNIFICANT PAIN; PRN TIZANADINE ADMINISTERED.
[2024-08-01 06:37] LABS: ALBUMIN 2.4 g/dL (3.4-4.8); ALKALINE PHOSPHATASE 96 U/L (40-150); ANION GAP 9 mmol/L (7-16); AST,SGOT 13 U/L (5-34); BILIRUBIN,TOTAL 0.3 mg/dL (0.2-1.2); BLOOD UREA NITROGEN 8 mg/dL (8-26); CHLORIDE 106 mEq/L (98-107); CREATININE, serum 0.73 mg/dL (0.72-1.25); GLUCOSE 88 mg/dL (70-99); POTASSIUM 3.8 mEq/L (3.5-4.5); SODIUM 133 mEq/L (136-145); TOTAL PROTEIN 5.6 g/dl (6.2-8.1)
[2024-08-01 06:38] LABS: ALANINE AMINOTRANSFERASE < 6 U/L (0-55)
--- NOTE | 2024-08-01 07:00 | NUR ---
Report received from GISSELLE Aleman. Reviewed overnight events and labs. Pt yelling out in pain. Pt just recieved pain medication at 0600. Pt received multiped doses of pain meds throughout the night. Offered to reposition patient but he refuses. Pt refuses air boot for leg. Call light within reach. Will continue with POC.
[2024-08-01] MEDS ORDERED: NORCO 325 MG-101 TAB PO (10:32)
--- NOTE | 2024-08-01 10:38 | NUR ---
SW informed that patient would be discharging to [facility] at 1030. Discharge documentation sent to facility with confirmed fax number [phone]. SW called facility to confirm transportation. Nothing further
--- NOTE | 2024-08-01 11:20 | NUR ---
Central line removed from LSC per protocol, pressure applied for 15 mintues until bleeding stopped. Pressure dressing applied. Pt tolereated procedure well. Pt transported to personal wheelchair from [facility]. Pt escorted out via wheelchair. Report called to GISSELLE Castillo at [facility] and questions answered.
--- NOTE | 2024-08-01 11:59 | NUR ---
Data: Patient declined spiritual care visit offered during Industrial Renderer rounds. Patient stated he hopes to discharge today. Assessment: None. Patient declined. Plan of Care: Chaplains will remain available as requested while Patient is admitted to this hospital.
== END 2024-08-01 11:20 | DRG 871 ==
LOC: COL.ER 19:17 → ICU 22:03 → COL.ER 22:10 → ICU 07-30 12:50 → EU 07-30 14:51 → ICU 07-30 14:51
PROVIDERS: Nurse Practitioner; Nurse Practitioner Family; ADMIT Internal Medicine
PROC: 02HV33Z Insertion of Infusion Device into Superior Vena Cava, Percutaneous Approach (ICD-10-PCS; principal; 2024-07-29)
DX: A41.9 Sepsis, unspecified organism (principal); R65.21 Severe sepsis with septic shock; N17.9 Acute kidney failure, unspecified; E87.20 Acidosis, unspecified; I48.20 Chronic atrial fibrillation, unspecified; I50.32 Chronic diastolic (congestive) heart failure; K57.32 Diverticulitis of large intestine without perforation or abscess without bleeding; R73.9 Hyperglycemia, unspecified; D64.9 Anemia, unspecified; N40.0 Benign prostatic hyperplasia without lower urinary tract symptoms; M85.80 Other specified disorders of bone density and structure, unspecified site; Z20.822 Contact with and (suspected) exposure to COVID-19; K21.9 Gastro-esophageal reflux disease without esophagitis; I27.20 Pulmonary hypertension, unspecified; K22.70 Barrett's esophagus without dysplasia; M48.00 Spinal stenosis, site unspecified; F32.A Depression, unspecified; G47.00 Insomnia, unspecified; F17.210 Nicotine dependence, cigarettes, uncomplicated; G72.9 Myopathy, unspecified; E78.5 Hyperlipidemia, unspecified; I25.10 Atherosclerotic heart disease of native coronary artery without angina pectoris; I11.0 Hypertensive heart disease with heart failure; G89.29 Other chronic pain; M54.9 Dorsalgia, unspecified; L89.159 Pressure ulcer of sacral region, unspecified stage; F10.10 Alcohol abuse, uncomplicated; L89.619 Pressure ulcer of right heel, unspecified stage; Z95.5 Presence of coronary angioplasty implant and graft; Z79.01 Long term (current) use of anticoagulants; Z79.899 Other long term (current) drug therapy; Z23 Encounter for immunization; Z79.82 Long term (current) use of aspirin
CPT/HCPCS: J2270; J2543; J3370; J7030; J7040; J7050; J7060; Q9967

== ENCOUNTER 2024-08-05 11:56 | Inpatient (IN) | payer MEDICARE, OTHER ==
[~2024-08-05] VITALS: Ht 172.7 cm; Wt 96.4 kg
[~2024-08-05 11:56] MED LIST changes: +ABILIFY5 MG PO; +AMBIEN CR6.25 MG PO; +DULCOLAX TAB5 MG PO; +FERRO-TIME325 MG PO; +FLAGYL500 MG PO; +ICY HOT 10-30%85 GM TP; +KLOR-CON SPRIN10 MEQ PO; +LEVAQUIN 750MG750 M1 PO; +MULTIPLE VITAMI1 TA1 PO; +NORCO 325 MG-101 TAB PO; +ZANAFLEX CAPSULE4 MG PO
[2024-08-05] MEDS ORDERED: NS 1,000 ML IV ONE (12:30)
[2024-08-05 12:31] LABS: BASO # 0.1 K/mm3 (0.0-0.2); BASO % 0.7 % (0.0-2.0); EOS # 0.2 K/mm3 (0.0-0.7); EOS % 2.4 % (0.0-4.0); GRAN # 6.6 K/mm3 (1.4-6.5); GRAN % 74.2 % (42.2-75.2); HEMATOCRIT 25.6 % (42.0-52.0); LYMPH # 1.1 K/mm3 (1.2-3.4); LYMPH % 12.4 % (20.0-51.0); MEAN CELL VOLUME 87 fl (80.0-100.0); MEAN CORPUSCULAR HEMOGLOBIN 27 pg (27-31); MEAN CORPUSCULAR HGB CONC 31 g/dl (33.0-37.0); MONO # 0.9 K/mm3 (0.1-0.6); MONO % 9.6 % (1.7-9.3); PLATELET COUNT 371 K/mm3 (130-400); RED BLOOD COUNT 2.94 M/mm3 (4.20-5.60); REDCELL DISTRIBUTION WIDTH-CV 19.8 % (11.5-14.5)
[2024-08-05 12:48] LABS: ALANINE AMINOTRANSFERASE 10 U/L (0-55); ALBUMIN 2.7 g/dL (3.4-4.8); ALKALINE PHOSPHATASE 115 U/L (40-150); ANION GAP 8 mmol/L (7-16); AST,SGOT 16 U/L (5-34); BILIRUBIN,TOTAL 0.3 mg/dL (0.2-1.2); BLOOD UREA NITROGEN 5 mg/dL (8-26); C-REACTIVE PROTEIN 6.22 mg/dL (0.00-0.50); CALCIUM 8.5 mg/dL (8.4-10.2); CHLORIDE 108 mEq/L (98-107); CREATININE, serum 0.88 mg/dL (0.72-1.25); GLUCOSE 100 mg/dL (70-99); POTASSIUM 4.1 mEq/L (3.5-4.5); SODIUM 136 mEq/L (136-145); TOTAL PROTEIN 6.3 g/dl (6.2-8.1)
[2024-08-05 12:55] LABS: TROPONIN-I < 0.010 ng/mL (0.00-0.033)
[2024-08-05] MEDS ORDERED: oxyCODONE/Acetaminophen 5-325 MG TAB PO ONE (13:00)
[2024-08-05] MEDS ORDERED: Docusate Sodium 100 MG CAP PO PRN (13:45)
[2024-08-05] MEDS ORDERED: tiZANidine 4 MG TAB PO PRN (13:45)
[2024-08-05] MEDS ORDERED: Polyethylene Glycol 3350 17 GM PDS PO PRN (13:45)
[2024-08-05] MEDS ORDERED: oxyCODONE/Acetaminophen 7.5-325 MG TAB PO PRN (13:45)
[2024-08-05] MEDS ORDERED: Acetaminophen 325 MG TAB PO PRN (13:45)
[2024-08-05] MEDS ORDERED: LR 1,000 ML IV SCH (13:45)
[2024-08-05] MEDS ORDERED: Ondansetron 4 MG/2 ML VIAL IV PRN (13:45)
[2024-08-05 14:57] VITALS: BP 139/86; PULSE 68; TEMP 97.9
[2024-08-05 17:00] VITALS: BP_SYST 139
[2024-08-05 19:54] VITALS: BP 135/66; PULSE 98; TEMP 98.4
[2024-08-05] MEDS ORDERED: Fluticasone Nasal 50 MCG/Spray 16 GM BOTTLE NS PRN (20:15)
[2024-08-05 20:39] VITALS: BP_SYST 135
[2024-08-05] MEDS ORDERED: Atorvastatin 10 MG TAB PO SCH (21:00)
[2024-08-05] MEDS ORDERED: Famotidine 20 MG TAB PO SCH (21:00)
[2024-08-05] MEDS ORDERED: Methyl Salicylate/Menthol Cream 85 GM TUBE TP SCH (21:00)
[2024-08-05] MEDS ORDERED: Apixaban 5 MG TABLET PO SCH (21:00)
[2024-08-05] MEDS ORDERED: ARIPiprazole 5 MG TAB PO SCH (21:00)
[2024-08-05] MEDS ORDERED: metroNIDAZOLE 250 MG TAB PO SCH (21:00)
[2024-08-05 21:46] LABS: COLLECTION METHOD CLEAN CATCH
[2024-08-05 21:58] LABS: PH 5.5 (5.0-8.5); URINE APPEARANCE CLEAR (CLEAR/HAZY); URINE BLOOD NEGATIVE (NEGATIVE); URINE COLOR YELLOW (YELLOW); URINE GLUCOSE NEGATIVE (NEGATIVE); URINE KETONE NEGATIVE (NEGATIVE); URINE NITRATE NEGATIVE (NEGATIVE); URINE PROTEIN(semi-quant) NEGATIVE (NEGATIVE); URINE UROBILINOGEN 0.2 E.U/dL (0.2-1.0)
[2024-08-05 22:17] VITALS: BP 127/75; PULSE 93; TEMP 98.2
[2024-08-06] VITALS (11 sets, daily range): BP systolic 86–127; BP diastolic 52–77; PULSE 62–113; TEMP 98.3–98.7
--- NOTE | 2024-08-06 00:40 | NUR ---
patient lying in bed, alert and oriented x4. denies chest pain and shortness of breath. reports intense pain in right heel, per request percocet given around 1999 and CHELSEY Stanford notified of pt request for sleeping aide and flonase, new orders placed per CHELSEY Stanford. right heel small decubitus ulcer with new mepilex dressing changed/placed, redness to coccyx, blanchable mepilex applied. BLE edema +2 pitting, heels elevated on pillows, pt educated on primo boot for heel protection, applied; however, pt became upset stating "this is uncomfortable and is causing more pain" further education provided, pt refused primo boot at this time. pt repositioned as tolerated with pillow under right hip. cough and congestion noted. IV in is patent, site CDI with LR running at 125 ml/hr. fall precautions in place, call light federico steiner. pt has no furthr needs, questions or concerns at this time.
[2024-08-06] MEDS ORDERED: levoFLOXacin 750 MG TAB PO SCH (07:00)
--- NOTE | 2024-08-06 07:37 | NUR ---
Patient pushed call light multiple times requesting pain medications before this nurse could pull the medication out of the pyxis and get into the room. Groaning and yelling out loudly which could be heard down the hallway. Upon entering room, patient was rude to nurse, demanding pain medication. Tiazidine adminsitered. Explained to patient that percocet was not due until 0800. Reports pain is mainly in RLE and Rt heel.
--- NOTE | 2024-08-06 08:02 | NUR ---
Patient continues to yell out and groan loudly- report no change in pain- Percocet adminsitered.
[2024-08-06 08:43] LABS: MEAN CELL VOLUME 85 fl (80.0-100.0); MEAN CORPUSCULAR HGB CONC 32 g/dl (33.0-37.0); MEAN PLATELET VOLUME 9.8 fl (7.4-10.4); PLATELET COUNT 366 K/mm3 (130-400); RED BLOOD COUNT 2.79 M/mm3 (4.20-5.60); REDCELL DISTRIBUTION WIDTH-CV 19.9 % (11.5-14.5)
[2024-08-06 09:00] LABS: CALCIUM 8.3 mg/dL (8.4-10.2); CREATININE, serum 0.82 mg/dL (0.72-1.25); POTASSIUM 4.3 mEq/L (3.5-4.5)
[2024-08-06] MEDS ORDERED: Morphine 4 MG/ML VIAL IV PRN ×2 (09:00→23:00)
[2024-08-06] MEDS ORDERED: Sertraline 100 MG TAB PO SCH (09:00)
--- NOTE | 2024-08-06 09:00 | NUR ---
Radiology at bedside completing right foot x-ray. Morphine administered IVP prior to x-ray.
[2024-08-06 09:08] LABS: CHOLESTEROL RISK RATIO 2.4
[2024-08-06 09:21] LABS: HEMATOCRIT 23.8 % (42.0-52.0); HEMOGLOBIN 7.5 g/dl (13.5-18.0); MEAN CORPUSCULAR HEMOGLOBIN 27 pg (27-31)
[2024-08-06 09:38] LABS: ANISOCYTOSIS 2+; BAND 7 % (0-10); EOSINOPHIL 1 % (0-4); LYMPHOCYTE 12 % (20.0-51.0); METAMYELOCYTE 1 % (0-0); NEUTROPHILS 76 % (42.0-75.2); PLATELET ESTIMATE NORMAL (NORMAL); SCHISTOCYTES 1+
[2024-08-06 09:39] LABS: OVALOCYTES 1+
--- NOTE | 2024-08-06 11:41 | NUR ---
D: French Cord Binder stopped by room on rounds. A: Pt was resting and content. Pt has no needs right now. P: French Cord Binder informed pt that if he needed anything from the restaurant team member area to let his nurse know. French Cord Binder will follow up as needed.
--- NOTE | 2024-08-06 11:51 | NUR ---
During rounding had a GOC/Palliative meeting with pt Corey, [place], Dr. Fontaine, myself, DESHAWN Benavidez. Dr. Fontaine reviewed case with . Currently pt is a Full Code. Pt was made DNR per . Hx Severe Arthritis. Admitted with Diverticulitis, RLL Opacities. 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 HGB 7.5. Pt dozing off/on during conversation due to Morphine for pain control. Pt did awaken and state he would go back to [facility] with the understanding he" wanted to go home when he got better". Pain has better controlled with the Morphine. Pt has also developed pressure ulcers to the heel/decubitus. France will speak with family for final decision regarding discharge plans. France voiced, "I can't take care of him at home. He is too heavy . He [facility] back [facility]. My kids are all out of town." Pramod reviewed options for Hospice with [place].
--- NOTE | 2024-08-06 13:16 | NUR ---
caseworker protective services attended clinical rounding and was informed pt can discharge back to [facility] today. Clinical team expressed concerns re: recent re-admission, pain control, and chronic management of his problems. Goals of Care consult was ordered as , [place] [phone] was present in room. DESHAWN, Dr. Dumont, BULMARO Savage all discussed pt's diagnosis, quality of life, and aggressive vs comfort care. Pt was very drowsy and participated minimally in discussion, but would wake up and report he will go back to [facility] only if he gets better and can return home. Pt was made a DNR as he had a previous order from the assisted and did not appear to be fully grasping the full code status. appears to be leaning more toward hospice for pain control and noting pt has many co-morbidities. She was provided Medicare.gov list of hospice agencies to review upon return to [facility]. DESHAWN advised she will follow up later. She then had questions about payor source utilizing [facility] for [facility]hosp[facility]. GISSELLE Stapleton updated on the above discussion and status. DESHAWN emailed updates to [facility] and provided verbal update on situation. Discharge Plan: return to [facility]
--- NOTE | 2024-08-06 14:15 | NUR ---
percocet given for c/o of right lower extremity pain and heel. Rates pain 6/10.
--- NOTE | 2024-08-06 15:54 | NUR ---
DESHAWN left voicemail for [place] [facility] ARMENDARIZ to discuss payor source for long-term care. DESHAWN was informed by colleague, DESHAWN Regalado that [facility] is not in network with the [place], so pt would private pay for long-term care room and board. DESHAWN received a call from France Almodovar reporting her daughter is arriving at 4pm to discuss further and had questions. She was notified and DESHAWN can answer any questions around 9am during rounding and that pt can discharge then. She verbalized understanding of this and will have her daughter arrive in the morning. questioned pt's hospice diagnosis and if he would become addicted to pain medication. SW advised her to discuss these with the provider as he is already heavily reliant on pain medication and it would not be taken away for hospice care. She was agreeable to discharge tomorrow once she can have her daughter speak with clinical team too.
[2024-08-06] MEDS ORDERED: Morphine 4 MG/ML VIAL IV ONE (18:45)
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
[2024-08-07] VITALS (11 sets, daily range): BP systolic 98–137; BP diastolic 67–89; PULSE 58–88; TEMP 97.8–98.6
--- NOTE | 2024-08-07 00:28 | NUR ---
patient lying in bed alert and oriented x4. denies chest pain/discomfort and shortness of breaeth. through grimacing and shouting pt reporting pain in right leg, medication given per request for pain and sleep aide. upon reassessment pt reporting "pain in no better" states "morphine is the only thing that is working". 2249- CHELSEY Stanford notified of pt request and continued pain with already given pain medications, new orders placed and initiated. pt resting in bed with eyes closed. right heel decubitus ulcer with mepilex dressing elevated on pillows, pt refusing primo boot. right inner butt cheek with small unstageable ulcer and blanchable redness, mepilex dressing on. both dressing CDI. excoriation to groin and axillary region, barrier cream offered and pt refused application. +2 pitting edema to BLE, elevated on pillow. fall precautions in place, call light within reach. pt has no further needs, questions or concerns at this time.
--- NOTE | 2024-08-07 07:54 | NUR ---
Assessment complete. Pt a/o x4. Pt called requesting pain medication, rating pain to RLE and Rt heel 410. Pt called twice before nurse could get in room and then stated "what the hell does it take to get pain medication around here." There was a lapse of 5 minutes from the first call to the time this nurse arrived in room. Percocet not due until 0815. Tiazadine and Morphine administered as ordered.
--- NOTE | 2024-08-07 08:24 | NUR ---
Percocet administered for c/o 5/10 pain to RLE and heel. Pt maria e out in pain, groaning loudly. Had discussion with patient today that his family would be in later this morning to discuss goals of care and that he would need to be an active participant in the converstation. Pt verbalizes understanding.
[2024-08-07 10:59] LABS: BASO % 0.5 % (0.0-2.0); EOS # 0.2 K/mm3 (0.0-0.7); EOS % 2.3 % (0.0-4.0); GRAN # 5.8 K/mm3 (1.4-6.5); GRAN % 76.2 % (42.2-75.2); LYMPH % 12.5 % (20.0-51.0); MEAN CELL VOLUME 87 fl (80.0-100.0); MEAN CORPUSCULAR HGB CONC 31 g/dl (33.0-37.0); MEAN PLATELET VOLUME 10.1 fl (7.4-10.4); MONO # 0.6 K/mm3 (0.1-0.6); MONO % 8.1 % (1.7-9.3); PLATELET COUNT 358 K/mm3 (130-400); REDCELL DISTRIBUTION WIDTH-CV 20.3 % (11.5-14.5)
[2024-08-07 11:05] LABS: HEMATOCRIT 23.4 % (42.0-52.0); HEMOGLOBIN 7.3 g/dl (13.5-18.0); MEAN CORPUSCULAR HEMOGLOBIN 27 pg (27-31)
[2024-08-07 11:09] LABS: CALCIUM 8.3 mg/dL (8.4-10.2); CREATININE, serum 0.8 mg/dL (0.72-1.25); POTASSIUM 4.7 mEq/L (3.5-4.5)
--- NOTE | 2024-08-07 12:56 | NUR ---
DESHAWN attended clinical rounding with provider, pt's , and two daughter's to further discuss goals of care. Dr. Dumont provided medical updates and outlook. Family feels as though pt did not understand the ramifications of being on hospice and does not actively want to , just wants pain control. Dr. Dumont and CHELSEY Wheatley talked with pt independently and he would like to pursue EGD and Colonoscopy at this time. This will be attempted today. DESHAWN emailed updates to Yfn at [facility] and provided verbal update. Discharge Plan: [facility]
[2024-08-07] MEDS ORDERED: Ondansetron 4 MG/2 ML VIAL IV PRN (13:15)
--- NOTE | 2024-08-07 13:41 | NUR ---
Midline placed to left upper arm by AIVS. Pt tolerated fair. Morphine administered IVP for c/o pain, per patient request.
[2024-08-07] MEDS ORDERED: LR 1,000 ML IV SCH (15:45)
[2024-08-07] MEDS ORDERED: Bisacodyl 5 MG TAB PO SCH ×2 (16:00→17:00)
--- NOTE | 2024-08-07 16:36 | NUR ---
Morphine administered for c/o pain.
[2024-08-07] MEDS ORDERED: Bisacodyl 5 MG TAB PO ONE (17:15)
[2024-08-07] MEDS ORDERED: Polyethylene Glycol 3350 119 GM BOTTLE PO SCH (18:00)
--- NOTE | 2024-08-07 18:17 | NUR ---
Percocet and Morphine administered for c/o RLE and Rt foot pain. Patient placed on specialty overlay mattress.
--- NOTE | 2024-08-07 18:46 | NUR ---
Patient reports that the overlay mattress is more comfortable. Rates current pain level 4-5/10 to RLE, Rt foot. Repositioned q2 hours.
--- NOTE | 2024-08-07 18:55 | NUR ---
PATIENT RESTING IN BED SITTING UP WITH TV ON WITH NO FAMILY PRESENT WITH NO ACUTE DISTRESS NOTED. PATIENT ON ROOM AIR. MIDLINE TO LEFT UPPER ARM INTACT WITH RAHEEM WRAP. TELEMETRY INTACT. PATIENT DENIES ANY NEEDS AT THIS TIME. BEDSIDE SHIFT REPORT COMPLETED WITH SOHAIL. BED IN LOW POSITION WITH WHEELS LOCKED WITH RAILS UP X3 AND CALL LIGHT WITHIN REACH. BED ALARM ON.
--- NOTE | 2024-08-07 19:44 | NUR ---
PATIENT RESTING IN BED WITH TV ON WITH AT BEDSIDE WITH NO ACUTE DISTRESS NOTED. PATIENT ON ROOM AIR. DOUBLE LUMEN MIDLINE TO LEFT UPPER ARM INTACT WITH NO COMPLICATIONS NOTED. TELEMETRY INTACT. VITAL SIGNS AND ASSESSMENT COMPLETED AT THIS TIME. PATIENT TOELRATED WELL. PATIENT C/O RIGHT FOOT PAIN. PATIENT VERBALIZED UNDERSTANDING THAT MEDICATION WOULD BE GIVEN. PATIENT DENIES ANY OTHER NEEDS. BED IN LOW POSITION WITH WHEELS LOCKED WITH RAILS UP X3 AND CALL LIGHT WITHIN REACH. BED ALARM ON.
--- NOTE | 2024-08-07 20:05 | NUR ---
MEDICATION ADMINISTRATION COMPLETED AT THIS TIME. IV MORPHINE GIVEN PER PATIENT C/O PAIN. PO ZANAFLEX GIVEN PER PATIENT REQUEST. PATIENT TOLERATED WELL. ALL NEEDS MET. BED IN LOW POSITION WITH WHEELS LOCKED WITH RAILS UP X3 AND CALL LIGHT WITHIN REACH. BED ALARM ON.
[2024-08-08] VITALS (13 sets, daily range): BP systolic 99–113; BP diastolic 63–75; PULSE 54–96; TEMP 97.5–98.6
[2024-08-08 06:12] LABS: BASO % 0.5 % (0.0-2.0); EOS # 0.2 K/mm3 (0.0-0.7); EOS % 2.7 % (0.0-4.0); GRAN # 5.6 K/mm3 (1.4-6.5); GRAN % 74.7 % (42.2-75.2); LYMPH # 1.1 K/mm3 (1.2-3.4); LYMPH % 14.1 % (20.0-51.0); MEAN CELL VOLUME 85 fl (80.0-100.0); MEAN CORPUSCULAR HGB CONC 32 g/dl (33.0-37.0); MEAN PLATELET VOLUME 10.1 fl (7.4-10.4); MONO # 0.6 K/mm3 (0.1-0.6); MONO % 7.6 % (1.7-9.3); PLATELET COUNT 371 K/mm3 (130-400); RED BLOOD COUNT 2.72 M/mm3 (4.20-5.60); REDCELL DISTRIBUTION WIDTH-CV 20.5 % (11.5-14.5)
[2024-08-08 06:20] LABS: HEMATOCRIT 23.2 % (42.0-52.0); HEMOGLOBIN 7.3 g/dl (13.5-18.0); MEAN CORPUSCULAR HEMOGLOBIN 27 pg (27-31)
[2024-08-08 06:31] LABS: CALCIUM 8.3 mg/dL (8.4-10.2); CREATININE, serum 0.79 mg/dL (0.72-1.25); POTASSIUM 4.3 mEq/L (3.5-4.5)
--- NOTE | 2024-08-08 08:10 | NUR ---
Morphine and Percocet administered for c/o pain to RLE and RT heel. Rates pain 6/10 on pain scale. Just finished sitting up to side of bed with therapy and had incontinence of stool- cares provided.
--- NOTE | 2024-08-08 09:11 | NUR ---
Patient resting in bed with eyes closed- easily arousable. Patient reports pain level has decreased to 4/10. Specialty overlay mattress in place. Heels floated. Mepilex dressing to right heel changed. Q2 hr repositioning scheduled in place. Refuses SCDs. Pt pleasant and cooperative.
--- NOTE | 2024-08-08 11:47 | NUR ---
Data: Spritiual care visit attempted twice. Doctor with Patient the first attempt. Patient sleeping the second attempt. Assessment: None at this time. Plan of Care: Chaplains will remain available as needed/requested while Patient is admitted to this hospital.
--- NOTE | 2024-08-08 12:35 | NUR ---
Data: Spiritual care visit attempted during the afternoon. Patient was eating his lunch and watching the [employer] game. Patient politely declined. Assessment: None at this time. Plan of Care: Patient told Re Etcher, "God bless you." Re Etcher thanked Patient for the blessing. Chaplains will remain available as needed/requested while Patient is admitted to this hospital.
[2024-08-08] MEDS ORDERED: Morphine 4 MG/ML VIAL IV PRN (13:15)
--- NOTE | 2024-08-08 17:42 | NUR ---
Patient drowsy on and off throughout day. Tylenol and Tizanidine administered at 1507 for c/o RLE and Rt foot pain. Patient called a short time later requesting IV Morphine, reporting that the Tylenol and Tizanidine weren't effective. Morphine IV administered at 1610. Pt reports some relief since receiving the Morphine, rating current pain level 4/10. Also gave first dose of MS Contin at 1159 (new medication scheduled BID). Patient groaned and yelled out less than he did yesterday. Fall precautions in place. Heels floated and patient repositioned Q2 hours. Pt voiced he is unhappy with his current diet (soft and bite sized). Education provided to patient as to why he is on a soft and bite sized diet. Verbalizes understanding.
--- NOTE | 2024-08-08 20:47 | NUR ---
Pt. shouting that he is in pain. Upon assessment, pt. c/o 05/20 intermittent pain to Rt. heel. Pt. describes pain as "stabbing" and denies any provoking factors. Scheduled meds including anaglesia administered per JAN. Snack provided with med pass. Shift assessment complete. Expiratory wheezes noted over all lung sehpard. Wheezes did not clear with cough. Pt. states cough is only productive sometimes but endorses thick pale yellow sputum. Midline to Lt upper arm is dressed w/ RAHEEM bandage. Visualized inertion site- no redness, draining, or edema. Pt. has scattered bruising across BUE. BLE and feet are edematous pitting +2. Unstageable ulcer to Rt. heel. Otherwise, feet are dry and flaky. No further outstanding findings at this time. Emptied urinal. Pt. voiding yellow cloudy urine. Pt. denies further requests at this time. Call light in reach and fall precautions in place.
--- NOTE | 2024-08-08 22:00 | NUR ---
Upon pain reassessment, pt. states pain has decreased from 7/10 to 5/10 and is requesting more analgesia. Pt. also requesting sleep aid. RN administered IV meds including additional analgesia and PO unisom per JAN. Pt. is also requesting tizanidine. Unable to administer at this time d/t time of last dose received. Education provided regarding dosing of tizanidine. No further requests. Call light in reach and fall precautions in place.
[2024-08-09] VITALS (10 sets, daily range): BP systolic 92–140; BP diastolic 54–83; PULSE 60–96; TEMP 97.8–98.9
--- NOTE | 2024-08-09 05:03 | NUR ---
Pt. struggled w/ pain tonight; often shouting out in pain. He c/o intermittent stabbing pain to Rt. heel ranging 5/10 to 7/10. Otherwise, pt. was able to rest w/ eyes closed and respirations even and unlabored in between episodes of pain. orthophotography technicianReggie, called at 0503 to report several instances where pt's HR dropped to 30s bpm for approx 6 seconds then returned to 60s bpm. This nurse assessed pt and did not note any signs of distress. VSS. Call light in reach and fall precautions in place.
--- NOTE | 2024-08-09 08:16 | NUR ---
Patient resting in bed, he called asking for pain medications, PRN and schedule provided. Pain 10/10 on right foot. Covered with mepilex. Tele in place, afib. He just finished his breakfast. Using urinal. Assessment completed, meds given, no further needs at this time. Call light within reach.
[2024-08-09] MEDS ORDERED: Bisacodyl 5 MG TAB PO ONE ×2 (16:00→17:00)
[2024-08-09] MEDS ORDERED: Polyethylene Glycol 3350 119 GM BOTTLE PO SCH (18:00)
--- NOTE | 2024-08-09 18:26 | NUR ---
Patient started bowel prep. Aware of proceduret tomorrow. He refused dinner. Continues with pain on his right leg, getting pain meds as allowed. Report will be given to night RN.
[2024-08-10] VITALS (13 sets, daily range): BP systolic 96–118; BP diastolic 55–73; PULSE 57–114; TEMP 97.8–98.6
--- NOTE | 2024-08-10 05:30 | NUR ---
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 pt HAD A ROUGH TIME COMPLETING HIS PREP. pt HAD TO BE CONSTANTLY ENCOURAGED TO FINISH DRINKING HIS PREP. pt COMPLAINED OF RLE PAIN SEVERAL TIMES. pt GIVEN SCHEDULED MS CONTIN, PERCOCET AND ZANAFLEX FOR PAIN. pt DIDN'T FEEL THE PAIN MEDICATIONS OR MUSCLE RELAXER WAS VERY EFFECTIVE FOR HIM FOR VERY LONG. TELE CALLED STATING pt's HEART RATE WAS IN THE 40'S AND ONCE DROPPED TO 27, NON-SUSTAINED. HOSPITALIST CALLED. MAG LAB ORDERED. TELEMETRY TABS CHANGED. WILL CONTINUE TO MONITOR. pt DENIED CHEST PAIN, PALPITATIONS, SOB, N,V OR DIZZINESS. FALL PRECAUTIONS IN PLACE. BED ALARM ON. CALL LIGHT WITHIN REACH.
[2024-08-10 06:12] LABS: MEAN CELL VOLUME 86 fl (80.0-100.0); MEAN CORPUSCULAR HGB CONC 32 g/dl (33.0-37.0); MEAN PLATELET VOLUME 9.9 fl (7.4-10.4); PLATELET COUNT 423 K/mm3 (130-400); RED BLOOD COUNT 2.68 M/mm3 (4.20-5.60); REDCELL DISTRIBUTION WIDTH-CV 20.4 % (11.5-14.5)
[2024-08-10 06:14] LABS: HEMOGLOBIN 7.3 g/dl (13.5-18.0); MEAN CORPUSCULAR HEMOGLOBIN 27 pg (27-31)
[2024-08-10 06:27] LABS: CALCIUM 7.9 mg/dL (8.4-10.2); CREATININE, serum 0.84 mg/dL (0.72-1.25); POTASSIUM 4.1 mEq/L (3.5-4.5)
[2024-08-10 07:12] LABS: BAND 1 % (0-10); BASOPHIL 1 % (0-2); EOSINOPHIL 3 % (0-4); LYMPHOCYTE 14 % (20.0-51.0); MYELOCYTE 1 % (0-0)
[2024-08-10 07:13] LABS: PLATELET ESTIMATE INCREASED (NORMAL)
[2024-08-10 07:15] LABS: ANISOCYTOSIS 2+; HYPOCHROMIA 1+; OVALOCYTES 1+
[2024-08-10 07:16] LABS: NEUTROPHILS 76 % (42.0-75.2)
--- NOTE | 2024-08-10 07:21 | NUR ---
Bedside report received from GISSELLE Bingham. Pt resting in bed awake with no complaints. Call light within reach.
--- NOTE | 2024-08-10 11:09 | NUR ---
Rectal tube discontinued by [facility] RN student Pina. 42 mL of saline removed from tubing balloon. Pt tolerated removal of tube well with no complaints. Pericare provided to pt. Call light within reach and fall precautions in place.
[2024-08-10] MEDS ORDERED: Magnesium Sulfate 4% 50 ML IV ONE (11:45)
[2024-08-10] MEDS ORDERED: Lidocaine PF 2% (20 MG/ML) 5 ML VIAL ONE (12:39)
[2024-08-10] MEDS ORDERED: Glycopyrrolate 0.2 MG/ML 1 ML VIAL ONE (12:39)
--- NOTE | 2024-08-10 13:05 | NUR ---
Pt arrived to medical floor from [facility] by bed. Report given by GISSELLE Hernandez. VSS. Pt has complaints of lower extremity pain rating 10/10. PRN pain medication given per emar. Pt has no request at this time. Call light within reach and fall precautions in place.
--- NOTE | 2024-08-10 14:04 | NUR ---
DESHAWN faxed clinical updates to Mari and provided verbal update to [facility]. Discharge Plan: [facility]
--- NOTE | 2024-08-10 15:20 | NUR ---
Pt O2 sat difficult to obtain and this nurse notified RT Don who placed continous pulse ox reading and noted pt to be in mid 80s on RA. Rt Don placed pt on 2L NC. PCT Ellen went to obtain vital signs approximately 30 minutes after O2 placed and reported that pt had taken off O2. Pt O2 saturation at 79% on RA when this nurse entered room. Pt asymptomatic of SOA. Education provided to pt about need for O2, pt agreeable to oxygen use. O2 saturation at 89% on 3L NC. CEHLSEY Wheatley notified by phone of difficulty obtaining accurate pulse ox and stated she would place stat ABG order. Rt Don notified.
--- NOTE | 2024-08-10 15:53 | NUR ---
patient refused ABG, STATING IF YOU CAN NOT GET BLOOD OUT OF PICK LINE WE ARE DONE. PATIENT IS ON [facility] SP02 OF 93%.
--- NOTE | 2024-08-10 21:31 | NUR ---
PATIENT RESTING IN BED EATING A SNACK. REPORTS PAIN IN RIGHT HEEL 5/10. CONTINUES TO REFUSE SCDs, STATE THEY CAUSE TOO MUCH DISCOMFORT. CALL LIGHT WITHIN REACH. BED IS LOCKED AND IN LOW POSITION.
[2024-08-11] VITALS (12 sets, daily range): BP systolic 93–128; BP diastolic 50–77; PULSE 55–83; TEMP 97.8–98.6
[2024-08-11 05:10] LABS: BASO # 0.1 K/mm3 (0.0-0.2); BASO % 0.6 % (0.0-2.0); EOS # 0.2 K/mm3 (0.0-0.7); EOS % 2.8 % (0.0-4.0); GRAN # 5.8 K/mm3 (1.4-6.5); GRAN % 74.7 % (42.2-75.2); LYMPH % 13.1 % (20.0-51.0); MEAN CELL VOLUME 85 fl (80.0-100.0); MEAN CORPUSCULAR HGB CONC 32 g/dl (33.0-37.0); MEAN PLATELET VOLUME 9.5 fl (7.4-10.4); MONO # 0.7 K/mm3 (0.1-0.6); MONO % 8.5 % (1.7-9.3); PLATELET COUNT 435 K/mm3 (130-400); RED BLOOD COUNT 2.75 M/mm3 (4.20-5.60); REDCELL DISTRIBUTION WIDTH-CV 20.3 % (11.5-14.5)
[2024-08-11 05:12] LABS: HEMATOCRIT 23.4 % (42.0-52.0); HEMOGLOBIN 7.5 g/dl (13.5-18.0); MEAN CORPUSCULAR HEMOGLOBIN 27 pg (27-31)
[2024-08-11 05:26] LABS: CALCIUM 8.1 mg/dL (8.4-10.2); CREATININE, serum 0.82 mg/dL (0.72-1.25); POTASSIUM 4.1 mEq/L (3.5-4.5)
--- NOTE | 2024-08-11 07:21 | NUR ---
Bedside report received from GISSELLE Rowell. Pt resting in bed with eyes closed and no complaints. Call light within reach and fall precautions in place.
--- NOTE | 2024-08-11 09:00 | NUR ---
Pt awake in bed with complaints of pain in RLE. PO Morphine administered per emar. Shift assessment completed. VSS. Q2HR turns in place. RLE elevated on pillow with mepilex in place on heel. Telemetry in place. Pt refused SCDs. LUE Midline patent with no swelling, redness, or drainage. Pt has no request at this time. Call light within reach and fall precautions in place.
--- NOTE | 2024-08-11 12:53 | NUR ---
DESHAWN spoke with , [place] during rounding with Dr. Strong. She expressed concerns regarding pt and if his current state is his new normal. She reports potentially wanting to take pt home per his request and that he is not "happy" at [facility] and is requesting to go home. DESHAWN advised they discussed this previously and he was agreeable. She expressed concerns with him "dying mad at her." DESHAWN and Dr. Strong provided reassurance to . She wanted information on "in home nurses." DESHAWN provided information on what Home Health and private duty caregivers could provide, if she chose to take him back home and not to [facility]. Pt is pending further workup regarding next steps for his foot. DESHAWN Mary faxed updates to [facility]. Discharge Plan: [facility]
--- NOTE | 2024-08-11 17:22 | NUR ---
Notified Dr. Strong by phone that pt was unable to complete MRI per radiology. Dr. Strong stated to repeat MRI tomorrow.
--- NOTE | 2024-08-11 20:10 | NUR ---
PATIENT RESTING IN BED WATCHING TV. REPORTS PAIN IN THE RIGHT HEEL 6/10. PRESENTLY ON ROOM AIR. ALERT AND ORIENTED. CALL LIGHT IS WITHIN REACH. BED IS LOCKED AND IN LOW POSITION.
[2024-08-12] VITALS (10 sets, daily range): BP systolic 95–137; BP diastolic 54–79; PULSE 61–70; TEMP 98–98.6
--- NOTE | 2024-08-12 08:00 | NUR ---
Patient is resting in bed, with tray on the table. Alert and oriented x 4, VSS. Aware of the need of the MRI and the plan. Form filled by . To be done at 1130. Assessment completed, meds given. No further needs at this time. Call light within reach.
[2024-08-12] MEDS ORDERED: LORazepam 2 MG/ML 1 ML VIAL IV PRN (08:30)
[2024-08-12] MEDS ORDERED: Morphine 4 MG/ML VIAL IV PRN (08:30)
--- NOTE | 2024-08-12 14:21 | NUR ---
chute worker was approached by , [place] reporting that pt is still expressing that he does not like it or want to return to [facility]. She questioned if [facility] or [facility] would reconsider if he was on hospice. DESHAWN inquired if she was still interested in hopsice, she states " I don't know, but I would consider all options." DESHAWN informed her it will likely not change, but she would discuss with them. DESHAWN spoke with Giovanna at [facility] who still declines pt. DESHAWN spoke with Bladimir at [facility] who would re-review if pt was on hospice. DESHAWN re-emailed the referral. DESHAWN Villa emailed updates to [facility]. Discharge Plan: [facility]
--- NOTE | 2024-08-12 16:47 | NUR ---
Patient resting in bed, asks for some pain medication, PRN provided.
--- NOTE | 2024-08-12 18:46 | NUR ---
Patient resting in bed, has not asked for more pain meds, but complains with movement. Getting new antibiotic per orders. Report will be given to night RN.
--- NOTE | 2024-08-12 21:10 | NUR ---
PATIENT RESTING IN BED WATCHING TV. REPORTS PAIN IN RIGHT HEEL 6/10, SCHEDULED MS CONTIN GIVEN. CALL LIGHT WITHIN REACH. BED IS LOCKED AND IN LOW POSITION
[2024-08-13] VITALS (13 sets, daily range): BP systolic 103–133; BP diastolic 54–80; PULSE 56–74; TEMP 97.6–98.5
[2024-08-13 06:33] LABS: MEAN CELL VOLUME 86 fl (80.0-100.0); MEAN CORPUSCULAR HGB CONC 31 g/dl (33.0-37.0); PLATELET COUNT 476 K/mm3 (130-400); RED BLOOD COUNT 2.79 M/mm3 (4.20-5.60); REDCELL DISTRIBUTION WIDTH-CV 20.4 % (11.5-14.5)
[2024-08-13 06:36] LABS: HEMOGLOBIN 7.5 g/dl (13.5-18.0); MEAN CORPUSCULAR HEMOGLOBIN 27 pg (27-31)
[2024-08-13 06:45] LABS: ALBUMIN 2.3 g/dL (3.4-4.8); ALKALINE PHOSPHATASE 97 U/L (40-150); ANION GAP 9 mmol/L (7-16); AST,SGOT 15 U/L (5-34); BILIRUBIN,TOTAL 0.3 mg/dL (0.2-1.2); BLOOD UREA NITROGEN 6 mg/dL (8-26); CALCIUM 8.2 mg/dL (8.4-10.2); CHLORIDE 107 mEq/L (98-107); CREATININE, serum 0.79 mg/dL (0.72-1.25); GLUCOSE 93 mg/dL (70-99); POTASSIUM 4.3 mEq/L (3.5-4.5); SODIUM 136 mEq/L (136-145); TOTAL PROTEIN 5.8 g/dl (6.2-8.1)
[2024-08-13 06:48] LABS: ALANINE AMINOTRANSFERASE < 6 U/L (0-55)
[2024-08-13 07:35] LABS: BAND 2 % (0-10); EOSINOPHIL 2 % (0-4); LYMPHOCYTE 14 % (20.0-51.0); NEUTROPHILS 75 % (42.0-75.2); PLATELET ESTIMATE INCREASED (NORMAL)
[2024-08-13 07:36] LABS: ANISOCYTOSIS 2+; HYPOCHROMIA 1+
--- NOTE | 2024-08-13 08:00 | NUR ---
Pt grouchy this morning, which appears to be baseline. He does have breakfast, will continue to check on pt, pt does have call light
--- NOTE | 2024-08-13 10:53 | NUR ---
Therapy was in working with pt mid morning. He did have large incontinent stool in bed. He was then cleaned up and transferred to the chair. He was only in the chair briefly when I came in for morning medications and noticed that he is sitting on stool. Pt was then cleaned up and remained sitting up in the chair. Pt then called shortly after demanding to get in to bed. He was in bed shortly and is incontinent of stool again. He states that he needs a oxycodone to stop the stool, informed him he was given his scheduled pain medication already. All medications were scanned when given. Upon logging in to the computer in another room, noticed that the medications did not save. Will full document then at the time they were given.
[2024-08-13] MEDS ORDERED: Morphine 4 MG/ML VIAL IV SCH (11:30)
[2024-08-13] MEDS ORDERED: LORazepam 2 MG/ML 1 ML VIAL IV SCH (11:30)
--- NOTE | 2024-08-13 13:15 | NUR ---
Pt off the floor for MRI
--- NOTE | 2024-08-13 14:20 | NUR ---
Pt back from MRI. MRI was not able to be done due to pt not holding still. Upon entering room, asked pt what happened getting the MRI. He seemed confused so I stated that they weren't able to get any images. He stated that that he did have the MRI done. Had discussion with pt that he didn't hold still and he said that he didn't realize that and was now ready to go do it. Explained that there were several attempts to get it done and that they were just going to try and get a bone scan tomorrow and then would plan on him going back to [facility] for IV antibiotics. Pt didn't say much after this and went to eating his meal.
--- NOTE | 2024-08-13 14:22 | NUR ---
Received a call from the patients nurse reporting that the patients forearm on the side of his Midline was very swollen. Upon assessment of the patient I did note that his lower arm was mildly edematous. I also noted that the lynette wrap around his midline was tight. I removed the lynette wrap and measured his arm. His arm around the midline insertion sight is measuring 33cm which is smaller than the time of insertion which was 35cm. I advised the nurse that the wrap was to tight causing the edema to the lower portion of the extremity and to leave the wrap off until the swelling goes down.
--- NOTE | 2024-08-13 14:33 | NUR ---
retail worker attended clinical rounding and was informed pt could not complete his MRI yesterday and his third and final attempt will be done today. This will determine if he has an infection and need amputation vs IV ABOX. Pt declined amputation to Dr. Strong. was present for discussion and informed Mack declined pt even for hospice per her request. DESHAWN Villa emailed updates to [facility] at [facility]. DESHAWN provided verbal update that pt is a likely discharge for tomorrow with IV Antibiotics. Discharge Plan: return to [facility]
[2024-08-13 15:08] LABS: CLOSTRIDIUM DIFF A/B NEG
--- NOTE | 2024-08-13 21:28 | NUR ---
PATIENT RESTING IN BED WITH EYES CLOSED, EASILY ROUSED. PRESENTLY ON ROOM AIR BUT LUNG SOUNDS QUITE COURSE TONIGHT. REPORTING PAIN 6/10 IN RIGHT LEG AND HEEL, RATING PAIN 6/10. CALL LIGHT WITHIN REACH. BED IS LOCKED AND IN LOW POSITION.
[2024-08-14 00:34] VITALS: BP_SYST 114
[2024-08-14 03:23] VITALS: BP 115/72; PULSE 73; TEMP 97.5
[2024-08-14 04:08] VITALS: BP_SYST 115
[2024-08-14 07:37] LABS: MEAN CELL VOLUME 86 fl (80.0-100.0); MEAN CORPUSCULAR HGB CONC 31 g/dl (33.0-37.0); PLATELET COUNT 444 K/mm3 (130-400); RED BLOOD COUNT 2.84 M/mm3 (4.20-5.60)
[2024-08-14 07:38] VITALS: BP 132/80; PULSE 60; TEMP 98.4
[2024-08-14 07:50] LABS: HEMATOCRIT 24.4 % (42.0-52.0); HEMOGLOBIN 7.6 g/dl (13.5-18.0); MEAN CORPUSCULAR HEMOGLOBIN 27 pg (27-31)
[2024-08-14 07:59] LABS: ALBUMIN 2.3 g/dL (3.4-4.8); ALKALINE PHOSPHATASE 97 U/L (40-150); ANION GAP 9 mmol/L (7-16); AST,SGOT 16 U/L (5-34); BILIRUBIN,TOTAL 0.3 mg/dL (0.2-1.2); BLOOD UREA NITROGEN 11 mg/dL (8-26); CALCIUM 8.6 mg/dL (8.4-10.2); CHLORIDE 106 mEq/L (98-107); CREATININE, serum 0.79 mg/dL (0.72-1.25); GLUCOSE 95 mg/dL (70-99); POTASSIUM 4.2 mEq/L (3.5-4.5); SODIUM 136 mEq/L (136-145); TOTAL PROTEIN 5.9 g/dl (6.2-8.1)
[2024-08-14 08:09] LABS: ALANINE AMINOTRANSFERASE < 6 U/L (0-55)
[2024-08-14 08:37] LABS: BAND 1 % (0-10); EOSINOPHIL 3 % (0-4); LYMPHOCYTE 17 % (20.0-51.0); NEUTROPHILS 71 % (42.0-75.2)
[2024-08-14 08:38] LABS: ANISOCYTOSIS 2+; PLATELET ESTIMATE INCREASED (NORMAL)
--- NOTE | 2024-08-14 08:40 | NUR ---
Patient resting in bed, alert and oriented x 4. He asks for his pain medications. Meds provided. BLE and left hand edema. His morning tray just arrived. Assessment completed. No further needs at this time. Call light within reach.
[2024-08-14 09:00] VITALS: BP_SYST 132
[2024-08-14] MEDS ORDERED: AMPICILLIN AND1 PD3 IV (10:16)
[2024-08-14] MEDS ORDERED: MS CONTIN 115 MG/TAB PO (10:16)
[2024-08-14] MEDS ORDERED: PERCOCET 325 MG1 TA3 PO (10:16)
--- NOTE | 2024-08-14 11:33 | NUR ---
sort line worker attended clinical rounding and was informed the MRI was not completed. Bone scan unable to be completed today due to staffing. Pt is cleared to discharge. DESHAWN met with pt and to provide update. Pt was falling asleep. completed IM from Medicare with DESHAWN and verbalized understanding/signed. Copy provided and original in chart. DESHAWN emailed discharge orders to Mari who arranged pickle solution maker at 1300. DESHAWN informed GISSELLE Marley, Clerk Mccarthy, and wrote this on the whiteboard. [facility]
[2024-08-14 12:14] VITALS: BP_SYST 132
--- NOTE | 2024-08-14 12:51 | NUR ---
Report given to GISSELLE Brush at [facility]. Telemetry discontinued. Pt going with midline to finish antibiotic treatment. Pt ready to be picked up by Mari at 1300.
--- NOTE | 2024-08-14 13:21 | NUR ---
Patient was picked up by [employer] student services representative.
[2024-08-24] MEDS ORDERED: AMBIEN CR 12.12.5 MG PO (14:50)
[2024-08-24] MEDS ORDERED: DIFLUCAN200 MG PO (14:50)
== END 2024-08-14 13:15 | DRG 312 ==
LOC: COL.ER 11:56 → MEDICAL 13:36
PROVIDERS: Emergency Medicine; Hospitalist; Physician Assistant; ADMIT Internal Medicine
PROC: 02HV33Z Insertion of Infusion Device into Superior Vena Cava, Percutaneous Approach (ICD-10-PCS; principal; 2024-08-07)
DX: I95.2 Hypotension due to drugs (principal); J69.0 Pneumonitis due to inhalation of food and vomit; E87.20 Acidosis, unspecified; I48.20 Chronic atrial fibrillation, unspecified; K57.92 Diverticulitis of intestine, part unspecified, without perforation or abscess without bleeding; I50.30 Unspecified diastolic (congestive) heart failure; Z66 Do not resuscitate; B95.2 Enterococcus as the cause of diseases classified elsewhere; K21.9 Gastro-esophageal reflux disease without esophagitis; I27.20 Pulmonary hypertension, unspecified; D64.9 Anemia, unspecified; K27.9 Peptic ulcer, site unspecified, unspecified as acute or chronic, without hemorrhage or perforation; K22.719 Barrett's esophagus with dysplasia, unspecified; M54.9 Dorsalgia, unspecified; F10.20 Alcohol dependence, uncomplicated; G72.9 Myopathy, unspecified; N40.0 Benign prostatic hyperplasia without lower urinary tract symptoms; F32.A Depression, unspecified; M48.00 Spinal stenosis, site unspecified; I73.9 Peripheral vascular disease, unspecified; I11.0 Hypertensive heart disease with heart failure; M85.879 Other specified disorders of bone density and structure, unspecified ankle and foot; Z20.822 Contact with and (suspected) exposure to COVID-19; E83.42 Hypomagnesemia; G25.81 Restless legs syndrome; L89.609 Pressure ulcer of unspecified heel, unspecified stage; F17.210 Nicotine dependence, cigarettes, uncomplicated; G47.00 Insomnia, unspecified; R91.8 Other nonspecific abnormal finding of lung field; Z79.01 Long term (current) use of anticoagulants; Z79.82 Long term (current) use of aspirin; I25.2 Old myocardial infarction; Z95.5 Presence of coronary angioplasty implant and graft; Z79.899 Other long term (current) drug therapy; Z23 Encounter for immunization
CPT/HCPCS: C1751; J0295; J2060; J2270; J2543; J2704; J3475; J7030; J7120; Q3014

== ENCOUNTER 2024-08-18 15:25 | Emergency (ER) | payer MEDICARE, OTHER ==
[~2024-08-18] VITALS: Ht 172.7 cm; Wt 85.9 kg
[~2024-08-18 15:25] MED LIST changes: +AMPICILLIN AND1 PD3 IV; +MS CONTIN 115 MG/TAB PO
[2024-08-18 15:45] VITALS: TEMP 99
[2024-08-18 16:16] LABS: BASO # 0.1 K/mm3 (0.0-0.2); BASO % 0.6 % (0.0-2.0); EOS # 0.1 K/mm3 (0.0-0.7); EOS % 0.6 % (0.0-4.0); GRAN # 8.3 K/mm3 (1.4-6.5); GRAN % 77.1 % (42.2-75.2); LYMPH # 1.1 K/mm3 (1.2-3.4); LYMPH % 9.9 % (20.0-51.0); MEAN CELL VOLUME 87 fl (80.0-100.0); MEAN CORPUSCULAR HGB CONC 31 g/dl (33.0-37.0); MEAN PLATELET VOLUME 10.2 fl (7.4-10.4); MONO # 1.2 K/mm3 (0.1-0.6); MONO % 11.5 % (1.7-9.3); PLATELET COUNT 490 K/mm3 (130-400); REDCELL DISTRIBUTION WIDTH-CV 19.9 % (11.5-14.5)
[2024-08-18 16:17] LABS: HEMATOCRIT 26.2 % (42.0-52.0); MEAN CORPUSCULAR HEMOGLOBIN 27 pg (27-31)
[2024-08-18 16:45] VITALS: BP 138/70; PULSE 98
[2024-08-24] MEDS ORDERED: DIFLUCAN200 MG PO (14:50)
[2024-08-24] MEDS ORDERED: AMBIEN CR 12.12.5 MG PO (14:50)
== END 2024-08-18 16:41 | disposition home or self-care (01) ==
LOC: COL.ER 15:25
PROVIDERS: Nurse Practitioner
DX: D64.9 Anemia, unspecified (principal)